=== PATIENT | male | born 1965 | race Caucasian/White ===

== ENCOUNTER → 2017-04-07 11:10 | Outpatient (CLI) | payer OTHER, SELFPAY ==
[2017-04-07 12:06] LABS: Cholesterol 180 mg/dL (200); Glucose 95 mg/dL (74-106); High Density Lipoprotein 31 mg/dL; T4 Free Direct 0.91 ng/dL (0.76-1.46); Thyroid Stim Hormone (TSH) 1.52 uIU/mL (0.358-3.74); Triglycerides 303 mg/dL; Very Low Density Lipoprotein 61 mg/dL (5-40)
== END ==
PROVIDERS: Family Provider Family Medicine; PCP Family Medicine; Visit Provider Family Medicine
DX: E78.1 Pure hyperglyceridemia (principal); R73.01 Impaired fasting glucose
CPT/HCPCS: 36415; 80061; 82947; 84439; 84443

== ENCOUNTER 2017-08-01 08:15 | Outpatient (RCR) | payer OTHER, SELFPAY | END 2017-08-05 23:59 | LOC: NS 08:15 | PROVIDERS: Family Provider Family Medicine; PCP Family Medicine; Visit Provider Family Medicine | DX: E66.9 Obesity, unspecified (principal); Z68.32 Body mass index [BMI] 32.0-32.9, adult; E78.1 Pure hyperglyceridemia; Z71.3 Dietary counseling and surveillance | CPT/HCPCS: 97802; 97803 ==

== ENCOUNTER 2017-08-29 08:00 | Outpatient (RCR) | payer OTHER, SELFPAY | END 2017-09-05 23:59 | LOC: NS 08:00 | PROVIDERS: Family Provider Family Medicine; PCP Family Medicine; Visit Provider Family Medicine | DX: E66.9 Obesity, unspecified (principal); Z68.32 Body mass index [BMI] 32.0-32.9, adult; E78.1 Pure hyperglyceridemia; Z71.3 Dietary counseling and surveillance | CPT/HCPCS: 97803 ==

== ENCOUNTER 2017-10-03 08:00 | Outpatient (RCR) | payer OTHER, SELFPAY | END 2017-10-06 23:59 | LOC: NS 08:00 | PROVIDERS: Family Provider Family Medicine; PCP Family Medicine; Visit Provider Family Medicine | DX: E66.9 Obesity, unspecified (principal); Z68.32 Body mass index [BMI] 32.0-32.9, adult; E78.1 Pure hyperglyceridemia; Z71.3 Dietary counseling and surveillance | CPT/HCPCS: 97803 ==

== ENCOUNTER 2017-10-24 08:51 | Outpatient (RCR) | payer OTHER, SELFPAY | END 2017-11-05 23:59 | LOC: NS 08:51 | PROVIDERS: Family Provider Family Medicine; PCP Family Medicine; Visit Provider Family Medicine | DX: E66.9 Obesity, unspecified (principal); Z68.32 Body mass index [BMI] 32.0-32.9, adult; E78.1 Pure hyperglyceridemia; Z71.3 Dietary counseling and surveillance | CPT/HCPCS: 97803 ==

== ENCOUNTER → 2017-10-31 06:38 | Outpatient (CLI) | payer OTHER, SELFPAY ==
--- NOTE | 2017-10-31 06:48 | MRI_ITS ---
STUDY: MRI BRAIN WITH AND WITHOUT CONTRAST (ATTENTION INTERNAL AUDITORY CANALS - I.A.C.'s) REASON FOR EXAM: Male, 52 years old. Follow-up benign neoplasm cranial nerves. TECHNIQUE: Standardized multiplanar fat and water weighted pulse sequences were obtained. 10 ml of Gadavist contrast material was administered intravenously for the contrast portion of the examination. COMPARISON: 02/21/2017. FINDINGS: There is a 1.1 x 0.8 x 0.9 cm homogeneously enhancing mass in the left internal auditory acoustic meatus and cerebellopontine angle, consistent with acoustic schwannoma. There is no change compared to the prior study. No additional enhancing lesion is noted. Normal bilateral temporal bones. Normal right internal auditory canal. Normal bilateral cochlea, vestibules and semicircular canals. Normal size of the ventricles and extra-axial spaces for the patient's age. Normal white matter tracts of the supratentorial brain. Normal flow voids within the major intracranial circulation suggesting patency by spin echo criteria. There is no extra-axial fluid accumulation. Normal sella turcica, pituitary gland, infundibular stalk, optic chiasm and hypothalamus. Normal tectal plate and pineal gland. Normal midbrain, clifford and medulla. Normal cerebellum. Normal basal cisterns. No demonstrated orbital abnormality, within the constraints of a routine brain study. Normal calvarium and skull base. Normal visualized soft tissue structures. Normal visualized upper cervical spine. There is mild mucosal thickening in the left maxillary sinus. MRI/Brain W/WO Contrast IMPRESSION: 1. A 1.1 cm left acoustic neuroma, unchanged from February 2017. 2. Trace chronic sinusitis. Electronically Signed: Frieda Boo MD at 17:32 EDT Tel , Service support ,
== END ==
PROVIDERS: Family Provider Family Medicine; PCP Family Medicine; Referring Provider Otolaryngology; Visit Provider Otolaryngology
DX: D33.3 Benign neoplasm of cranial nerves (principal)
CPT/HCPCS: 70553; A9585

== ENCOUNTER 2017-11-23 12:47 | Outpatient (RCR) | payer OTHER, SELFPAY | END 2017-12-06 23:59 | LOC: NS 12:47 | PROVIDERS: Family Provider Family Medicine; PCP Family Medicine; Visit Provider Family Medicine | DX: E66.9 Obesity, unspecified (principal); Z68.32 Body mass index [BMI] 32.0-32.9, adult; E78.1 Pure hyperglyceridemia; Z71.3 Dietary counseling and surveillance | CPT/HCPCS: 97803 ==

== ENCOUNTER 2017-12-27 08:17 | Outpatient (RCR) | payer OTHER, SELFPAY | END 2018-01-05 23:59 | LOC: NS 08:17 | PROVIDERS: Family Provider Family Medicine; PCP Family Medicine; Visit Provider Family Medicine | DX: E66.9 Obesity, unspecified (principal); Z68.32 Body mass index [BMI] 32.0-32.9, adult; E78.1 Pure hyperglyceridemia; Z71.3 Dietary counseling and surveillance | CPT/HCPCS: 97803 ==

== ENCOUNTER 2018-01-25 16:00 | Outpatient (RCR) | payer OTHER, SELFPAY ==
--- OUTSIDE RECORDS SUMMARY | 2018-03-04 02:20 | XMS RPT_ITS ---
:1965 Author Organization [place] Support Name Relationship Address Phone SRAVANTHI VOGEL Unavailable [address] + [place] [address] [facility] Unavailable [address] + [place] [address] JACKIE, SRAVANTHI Unavailable [address] + [place] [address] [facility] Unavailable [address] + [place] [address] JACKIE, SRAVANTHI Unavailable [address] + [place] [address] [facility] Unavailable [address] + [place] [address] JACKIE, SRAVANTHI Unavailable Unavailable + JACKIE, SRAVANTHI Unavailable Unavailable + JACKIE, SRAVANTHI Unavailable [address] + [place] [address] [facility] Unavailable [address] + [place] [address] JACKIE, SRAVANTHI Unavailable [address] + [place] [address] [facility] Unavailable [address] + [place] [address] JACKIE, SRAVANTHI Unavailable [address] + [place] [address] [facility] Unavailable [address] + [place] [address] JACKIE, SRAVANTHI Unavailable [address] + [place] [address] [facility] Unavailable [address] + [place] [address] JACKIE, SRAVANTHI Unavailable [address] + [place] [address] [facility] Unavailable [address] + [place] [address] JACKIE, SRAVANTHI Unavailable [address] + [place] [address] [facility] Unavailable [address] + [place] [address] JACKIE, SRAVANTHI Unavailable [address] + [place] [address] [facility] Unavailable [address] + [place] [address] JACKIE, SRAVANTHI Unavailable [address] + [place] [address] [facility] Unavailable [address] + [place] [address] Care Team Providers Name Role Phone Juan Frye Attending Unavailable Juan Frye Primary Care Unavailable Juan Frye Attending Unavailable Juan Frye Primary Care Unavailable Juan Frye Referring Unavailable Juan Frye Attending Unavailable Juan Frye Primary Care Unavailable Juan Frye Attending Unavailable Juan Frye Primary Care Unavailable Juan Frye Attending Unavailable Juan Frye Primary Care Unavailable Juan Frye Attending Unavailable Juan Frye Primary Care Unavailable ASSESSMENT, HEALTH RISK Attending Unavailable ASSESSMENT, HEALTH RISK Referring Unavailable Juan Frye Primary Care Unavailable Angel Gamez Attending Unavailable Angel Gamez Referring Unavailable Juan Frye Primary Care Unavailable Juan Frye Attending Unavailable Juan Frye Primary Care Unavailable Juan Frye Attending Unavailable Juan Frye Primary Care Unavailable Juan Frye Attending Unavailable Juan Frye Primary Care Unavailable Dr. Angel Gamez Attending Unavailable Faisal Carlisle Referring Unavailable Dr. Juan Frye Primary Care Unavailable PROBLEMS PROBLEMS DATE TYPE CONDITION / CODE ATTENDING STATUS SOURCE 02/13/2018 Unknown E66.9 - Obesity, Juan Frye Active [place] unspecified / Community E66.9(ICD-10) Hospital Repository 10/31/2017 Unknown D33.3 - Benign Megerian, Active [place] neoplasm of cranial Angel Community nerves / D33.3(ICD-10) Hospital Repository 04/07/2017 Unknown E78.1 - Pure Juan Frye Active [place] hyperglyceridemia / Community E78.1(ICD-10) Hospital Repository 04/07/2017 Unknown R73.01 - Impaired Juan Frye Active [place] fasting glucose / Community R73.01(ICD-10) Hospital Repository PROCEDURES PROCEDURES No Procedure Records FoundRESULTS RESULTS ESTABLISHED VISIT Observed: 12/19/2017 Status: UNK Source: [place] (OTOLARYNGOLOGY) 4:30 PM HOSPITALS REPOSITORY Chief Complaint MRI FOLLOW UP Patient last seen 6 months ago with a small acoustic tumor approximately 9-10 mm. He said no interval change or problems. Physical exam unchanged except for the left ear wax that was removed. MRI shows tumor stable no growth. Impression doing well plan follow-up in one year with MRI. Active Problems Acoustic neuroma (225.1) (D33.3) Blood tests prior to treatment or procedure (V72.63) (Z01.812) Past Medical History History of asthma (V12.69) (Z87.09) History of high cholesterol (V12.29) (Z86.39) History of sleep apnea (V13.89) (Z86.69) Surgical History History of Knee Surgery Family History Family history of Parkinson disease, symptomatic Social History Currently working Lives with family Never a smoker Occasional alcohol use Allergies Penicillins Recorded By: Rowena Mendez; 04/04/2017 1:55:21 PM Animal dander - Cats Recorded By: Rowena Mendez; 04/04/2017 1:55:21 PM Dust Recorded By: Rowena Mendez; 04/04/2017 1:55:21 PM Pollen Recorded By: Rowena Mendez; 04/04/2017 1:55:21 PM Diagnoses/Problems Acoustic neuroma (225.1) (D33.3) Blood tests prior to treatment or procedure (V72.63) (Z01.812) Orders MRI IAC w/wo Contrast; Status:Hold For - Scheduling,Retrospective By Protocol Authorization; Requested for:06Nov2018; Perform:[facility]; Due:[id number]; Last Updated By:Kayli Petersen; 12/19/2017 3:41:06 PM;Ordered; For:Acoustic neuroma; Ordered By:Angel Gamez; Radiologist to Determine Optimal Study : Y What are the patient's signs and symptoms? : known IAC lesion Renal Function Panel; Specimen Source:Blood (BLD); Status:Active - Retrospective By Protocol Authorization; Requested for:06Nov2018; Perform:Lab Services - Lab To Draw (Blood Test); Due:[id number]; Last Updated By:Kayli Petersen; 12/19/2017 3:41:06 PM;Ordered; For:Blood tests prior to treatment or procedure; Ordered By:Angel Gamez; Signatures Electronically signed by : Angel Gamez MD; Dec 19 2017 4:30PM EST (Author) BRAIN W/WO CONTRAST Observed: 10/31/2017 Status: F Source: [place] 6:48 AM [facility] REPOSITORY [facility] Imaging Services [address] [place] [address] [place] [address] Brain W/WO Contrast MR#: [id number] Acct: [id number] Name: GORGE VOGEL Luis Rep #: [id number] : 1965 M 52 From: Frieda Boo MD PCP: Juan Frye DO Status: REG CLI Study: Brain W/WO Contrast Date of Exam: 10/31/17 Exam# [id number] Ordering Dr: Angel Gamez STUDY: MRI BRAIN WITH AND WITHOUT CONTRAST (ATTENTION INTERNAL AUDITORY CANALS - I.A.C.'s) REASON FOR EXAM: Male, 52 years old. Follow-up benign neoplasm cranial nerves. TECHNIQUE: Standardized multiplanar fat and water weighted pulse sequences were obtained. 10 ml of Gadavist contrast material was administered intravenously for the contrast portion of the examination. COMPARISON: 02/21/2017. FINDINGS: There is a 1.1 x 0.8 x 0.9 cm homogeneously enhancing mass in the left internal auditory acoustic meatus and cerebellopontine angle, consistent with acoustic schwannoma. There is no change compared to the prior study. No additional enhancing lesion is noted. Normal bilateral temporal bones. Normal right internal auditory canal. Normal bilateral cochlea, vestibules and semicircular canals. Normal size of the ventricles and extra-axial spaces for the patient's age. Normal white matter tracts of the supratentorial brain. Normal flow voids within the major intracranial circulation suggesting patency by spin echo criteria. There is no extra-axial fluid accumulation. Normal sella turcica, pituitary gland, infundibular stalk, optic chiasm and hypothalamus. Normal tectal plate and pineal gland. Normal midbrain, clifford and medulla. Normal cerebellum. Normal basal cisterns. No demonstrated orbital abnormality, within the constraints of a routine brain study. Normal calvarium and skull base. Normal visualized soft tissue structures. Normal visualized upper cervical spine. There is mild mucosal thickening in the left maxillary sinus. MRI/Brain W/WO Contrast IMPRESSION: 1. A 1.1 cm left acoustic neuroma, unchanged from February 2017. 2. Trace chronic sinusitis. 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 Collected: 10/18/2017 Status: F Source: [place] 10:08 AM [facility] REPOSITORY TYPE CODE TESTS RESULT OUT OF RANGE REFERENCE UNITS LAB L100.1000 4.4-11.0 K/mm3 Normal WBC 4.8 LAB L100.1200 4.6-6.2 M/mm3 Normal RBC 4.77 LAB L100.1300 13.0-16.5 g/dl Normal HGB 14.7 LAB L100.1400 40-54 % Normal HCT 44.8 LAB L100.1500 80-94 fL Normal MCV 93.9 LAB L100.1600 27.0-32.0 pg Normal MCH 30.8 LAB L100.1700 32-36 g/gl Normal MCHC 32.8 LAB L100.1810 11.6-14.6 % Normal RDW CV 13.0 LAB L100.1820 35.1-43.9 fl High RDW SD 44.5 LAB L100.1900 150-450 K/mm3 Normal PLT 210 LAB L100.2000 6.2-12.0 fl Normal MPV 10.3 LAB L100.2110 47-70 % High NEUT% 71.6 LAB L100.2210 19-41 % Normal LY% 20.9 LAB L100.2310 0-10 % Normal MONO% 5.4 LAB L100.2410 0-5 % Normal EO% 1.7 LAB L100.2510 0-1 % Normal BASO% 0.4 LAB L100.2620 2.0-7.7 X10 3/uL Normal Absolute Neut 3.4 LAB L100.2720 0.83-4.51 X10 3/ul Normal Absolute Lymph 1.00 Performed By: #### L100.0200 #### [facility] [address] [place], [address] EMPLOYEE PROFILE Collected: 10/18/2017 Status: F Source: [place] 10:08 AM [facility] REPOSITORY TYPE CODE TESTS RESULT OUT OF RANGE REFERENCE UNITS LAB L501.0100 74-106 mg/dL Normal GLU 93 Result Comment: Please note revised GLUCOSE reference range effective 2017. LAB L501.1000 7-18 mg/dL High BUN 23 LAB L501.1100 0.70-1.30 mg/dL Normal CREAT,SERUM 1.08 Result Comment: The validity of the calculated GFR AND GFRAA in patients over 70 years has not been determined. Clinical correlation is essential. LAB L501.1110 >60 mL/min Normal EST GFR 77 Result Comment: Non- GFR Calc LAB L501.1115 >60 mL/min Normal EST GFR - AA 93 Result Comment: GFR Calc LAB L501.1300 10-20 RATIO High BUN/CRE 21.3 LAB L501.1400 3.5-7.2 mg/dL Normal URIC 6.1 Result Comment: The drugs N-Acetylcysteine and Metamizole may falsely depress this assay. LAB L501.1500 6.4-8.2 g/dL Normal T PROT 7.9 LAB L501.1800 3.2-5.0 g/dL Normal ALB 3.9 LAB L501.1950 2.2-4.2 g/dL Normal GLOB 4.0 LAB L501.2000 0.9-2.4 RATIO Normal A/G 1.0 LAB L501.2200 8.5-10.1 mg/dL Normal CA 9.1 LAB L501.2300 2.5-4.9 mg/dL Normal PHOS 2.7 LAB L501.4100 15-37 U/L Normal AST 19 LAB L501.4305 45-117 U/L Normal ALK P 74 LAB L501.4405 16-61 U/L Normal ALT 29 LAB L501.4600 0.20-1.00 mg/dL Normal T BILI 0.70 LAB L501.4700 0.00-0.30 mg/dL Normal D BILI 0.11 LAB L501.4900 200 mg/dL Normal CHOL 196 Result Comment: <200 mg/dL Desirable 200-240 mg/dL Borderline >240 mg/dL High Risk LAB L501.5000 mg/dL High TRIG 298 Result Comment: The drugs N-Acetylcysteine and Metamizole may falsely depress this assay. Serum Triglycerides Reference Interval Normal <150 mg/dL Borderline high 150 - 199 mg/dL High 200 - 499 mg/dL Very High > or = 500 mg/dL LAB L501.5300 136-145 mmol/L Normal NA 140 LAB L501.5600 3.5-5.1 mmol/L Normal K 4.6 LAB L501.5900 98-107 mmol/L Normal CL 106 LAB L501.6100 21.0-32.0 mmol/L Normal CO2 26.0 LAB L501.6200 5-15 Normal 8 GAP LAB L501.6400 mg/dL Low HDL 32 Result Comment: The drugs N-Acetylcysteine and Metamizole may falsely depress this assay. Reference Range HDL <40 mg/dL Low HDL Cholesterol HDL >or= 60 mg/dL High HDL Cholesterol LAB L501.6475 Normal CHOL:HDL 6.10 LAB L501.6500 0-130 mg/dL Normal LDL 104 LAB L501.6600 5-40 mg/dL High VLDL 60 LAB L504.2610 87-241 U/L Normal LDH 181 Performed By: #### L500.2900 #### [facility] [address] [place], [place], [id number] [employer]INAL[employer], EMPLOYEE Collected: 10/18/2017 Status: F Source: [place] 10:08 AM [facility] REPOSITORY TYPE CODE TESTS RESULT OUT OF RANGE REFERENCE UNITS LAB L400.3000 Yellow COLOR Normal Yellow LAB L400.3050 Clear Normal CLARITY Clear LAB L400.3200 Normal mg/dl Normal GLUCOSE, UR Normal LAB L400.3300 Negative mg/dL Normal BILIRUBIN URINE Negative LAB L400.3400 Negative mg/dl Normal KETONE UR Negative LAB L400.3465 1.002-1.030 Normal SP.GR. DIPSTX 1.025 LAB L400.3550 5.0 - 8.0 pH UR Normal 5.0 LAB L400.3600 Negative mg/dl High PROT 15 DIPSTX LAB L400.3700 Normal mg/dl Normal UROBILI Normal LAB L400.3750 Negative Normal NITRITE UR Negative LAB L400.3780 Negative /ul High 10 OCCULT BLOOD-UR LAB L400.3800 Negative /ul LEUK Normal ESTERASE Negative Performed By: #### L400.0100 #### [facility] [address] [place], [place], [address] NICOTINE URINE DRUG Collected: 10/18/2017 Status: F Source: [place] SCREEN 10:08 AM [facility] REPOSITORY TYPE CODE TESTS RESULT OUT OF RANGE REFERENCE UNITS LAB L505.6250 TO BE Normal CONFIRMED Result Comment: CONFIRMATORY TESTING FOR ALL POSITIVE URINE DRUG SCREEN RESULTS WILL ONLY BE SENT OUT UPON PHYSICIAN ORDER. The results of Urine Drug Screen methods provide only preliminary analytical test results. A more specific alternate chemical method must be used in order to obtain a confirmed analytical result. Gas chromatography/mass spectrometery (GC/MS) is the preferred confirmatory method. Clinical consideration and professional judgement should be applied to any drug of abuse test result, particularly when preliminary positive results are used. LAB L505.6270 <200 ng/mL Normal COT DRG Negative SCREEN Result Comment: Cotinine is the first-stage metabolite of Nicotine. Performed By: #### L505.6240 #### [facility] [address] [place], [place], [address] LIPID PROFILE Collected: 04/07/2017 Status: F Source: [place] 11:15 AM [facility] REPOSITORY TYPE CODE TESTS RESULT OUT OF RANGE REFERENCE UNITS LAB L501.4900 200 mg/dL Normal CHOL 180 Result Comment: <200 mg/dL Desirable 200-240 mg/dL Borderline >240 mg/dL High Risk LAB L501.5000 mg/dL High TRIG 303 Result Comment: The drugs N-Acetylcysteine and Metamizole may falsely depress this assay. Serum Triglycerides Reference Interval Normal <150 mg/dL Borderline high 150 - 199 mg/dL High 200 - 499 mg/dL Very High > or = 500 mg/dL LAB L501.6400 mg/dL Low HDL 31 Result Comment: The drugs N-Acetylcysteine and Metamizole may falsely depress this assay. Reference Range HDL <40 mg/dL Low HDL Cholesterol HDL >or= 60 mg/dL High HDL Cholesterol LAB L501.6500 0-130 mg/dL Normal LDL 88 LAB L501.6600 5-40 mg/dL High VLDL 61 Performed By: #### L500.4100, L501.0100, L501.9520, L506.0400 #### [facility] [address] [place], [place], [address] GLUCOSE Collected: 04/07/2017 Status: F Source: [place] 11:15 AM [facility] REPOSITORY TYPE CODE TESTS RESULT OUT OF RANGE REFERENCE UNITS LAB L501.0100 74-106 mg/dL Normal GLU 95 Result Comment: Please note revised GLUCOSE reference range effective 2017. Performed By: #### L500.4100, L501.0100, L501.9520, L506.0400 #### [facility] [address] [place], [place], [address] THYROID STIM HORMONE Collected: 04/07/2017 Status: F Source: [place] (TSH) 11:15 AM [facility] REPOSITORY TYPE CODE TESTS RESULT OUT OF RANGE REFERENCE UNITS LAB L501.9520 0.358-3.74 uIU/mL Normal TSH 1.52 Performed By: #### L500.4100, L501.0100, L501.9520, L506.0400 #### [facility] [address] [place], [address] T4 FREE DIRECT Collected: 04/07/2017 Status: F Source: [place] 11:15 AM [facility] REPOSITORY TYPE CODE TESTS RESULT OUT OF RANGE REFERENCE UNITS LAB L506.0400 0.76-1.46 ng/dL Normal T4 FREE 0.91 DIRECT Performed By: #### L500.4100, L501.0100, L501.9520, L506.0400 #### [facility] [address] [place], [address] ALLERGIES ALLERGIES No Allergies Records FoundENCOUNTERS ENCOUNTERS ADMIT/DISCHARGE ACCOUNT ADMITTING ENCOUNTER LOCATION SOURCE NUMBER CLASS 02/12/2018/02/12/19 [id number] Ambulatory [address] ing:NS Repository 01/25/2018/02/06/20 [id number] Ambulatory [address] Hospital ing:NS Repository 12/27/2017/01/06/20 [id number] Ambulatory [address] Hospital ing:NS Repository 12/19/[id number] Repository 11/23/2017/12/07/19 [id number] Ambulatory [address] Hospital ing:NS Repository 10/31/2017 [id number] Ambulatory [facility] Hospital ing:MRI Repository 10/24/2017/11/06/19 [id number] Ambulatory [address] Hospital ing:NS Repository 10/18/2017 [id number] Ambulatory [facility] Hospital ing:EMPH Repository 10/03/2017/10/07/19 [id number] Ambulatory [address] Hospital ing:NS Repository 08/29/2017/09/06/19 [id number] [facility] [address] [facility]NS Repository 08/01/2017/08/06/19 [id number] Ambulatory [address] Hospital ing:NS Repository 04/07/2017 [id number] Ambulatory [facility] Hospital ing:LAB.FUTNIA Repository E PAYERS PAYERS ENCOUNTER GUARANTOR PAYER SUBSCRIBER SOURCE 02/12/2018 GORGE Smith Primary Insurance:[facility] GORGE VOGEL[address] [place], [place] [address]ERDOB: [facility] [id number], [place] Number: Repository [id number]: 330 [id number] [phone] (HP) Date:7681-70-24[address] [address], [place] [address]JU: CHECK WEBSITE 02/12/2018 Secondary NOT GIVENUNK [place] Insurance:SELF PAY [facility] Number: Effective Repository Date:2018-02-06 01/25/2018 GORGE E Primary Insurance:[facility] GORGE E [place] [id number] [place] [address] RABERDOB: [facility] [id number], [place] Number: Repository [id number]: 330 [id number] [phone] (HP) Date:6024-73-36NH [address] [address]FK[place]FAUEK, [place] [address]ZT: CHECK WEBSITE 01/25/2018 Secondary NOT GIVENUNK [place] Insurance:SELF PAY [facility] Number: Effective Repository Date:2018-01-06 12/27/2017 GORGE E [facility] [place], [place] [address]ERDOB: [facility] [id number], [place] Number: Repository [id number]: 330 [id number] [phone] () Date:1335-72-83ZX [address] [address], [place] [address]KY: CHECK WEBSITE 12/27/2017 Secondary NOT GIVENUNK [place] Insurance:SELF PAY [facility] Number: Effective Repository Date:2017-12-07 12/19/[address] [facility] [facility]: [facility] [place] Insurance:Medical [id number] [place] [address], Number: [place], [place] [address]Xyn: [id number] [place] [address]Lsi: Date:Plan Name:[facility] () (HP) 11/23/2017 GORGE E Primary Insurance:[facility] GORGE DAVISONER251 [facility]: [facility] [id number], [place] Number: Repository [id number]: 330 [id number] [phone] () Date:2927-81-56QD [address] [address]WZAXN[place], [place] [address]RG: CHECK WEBSITE 11/23/2017 Secondary NOT GIVENUNK [place] Insurance:SELF PAY [facility] Number: Effective Repository Date:2017-11-06 10/31/2017 GORGE E Primary Insurance:[facility] GORGE Branhamoster [id number] [facility]USDOB: [facility] [id number], [place] Number: Repository [address]Ndv: 330 [id number] [phone] () Date:1302-70-22HH [address] [address]WTSK, [place] [address]HV: CHECK WEBSITE 10/31/2017 Secondary NOT GIVENUNK [place] Insurance:SELF PAY [facility] Number: Effective Repository Date:2017-10-25 10/24/2017 Gorge [id number] Primary Insurance:[facility] Gorge DavisonearleneB: [facility] [id number].[facility] [address]Uro: (330) Number: Repository [phone] () [id number] Date:9848-72-56FX [address] [address], [place] [address]SA: CHECK WEBSITE 10/24/2017 Secondary NOT GIVENUNK [place] Insurance:SELF PAY [facility] Number: Effective Repository Date:2017-10-07 10/18/2017 Gorge [id number] Primary NOT GIVENUNK [place] [employer] Insurance:SELF PAY [facility] [address]Cqj: (330) Number: Effective Repository [phone] () Date:2017-10-18 10/03/2017 Gorge [id number] Primary Insurance:[facility] Gorge BraunB: [facility] [id number].W. [facility] [address]Sar: (330) Number: Repository [phone] () [id number] Date:2750-22-45QR [address] [address]KTYYQOSDS, [place] [address]YD: CHECK WEBSITE 10/03/2017 Secondary NOT GIVENUNK [place] Insurance:SELF PAY [facility] Number: Effective Repository Date:2017-09-06 08/29/2017 Gorge [id number] Primary Insurance:[facility] Gorge DavisonerDOB: [place] [facility] [id number].W. [facility] [address]Vzb: (330) Number: Repository [phone] () [id number] Date:3647-26-53DM [address] [address]ZWUFUH, [place] [address]NY: CHECK WEBSITE 08/29/2017 Secondary NOT GIVENUNK [place] Insurance:SELF PAY [facility] Number: Effective Repository Date:2017-08-06 08/01/2017 Gorge Davisoner251 Primary Insurance:[facility] Gorge VogelDOB: [place] [facility] [id number].W. [facility] [address]Dsj: (330) Number: Repository [phone] () [id number] Date:6128-19-18PK [address] [address]YVCGA, [place] [address]PQ: CHECK WEBSITE 08/01/2017 Secondary NOT GIVENUNK [place] Insurance:SELF PAY [facility] Number: Effective Repository Date:2017-06-22 04/07/2017 Gorge [id number] Primary Insurance:[facility] Gorge VogelDOB: [place] [facility] [id number].[facility] [address]Qef: (330) Number: Repository [phone] () [id number] Date:9780-79-67GA [address] [address]DYSCVCOSQ, [place] [address]SC: CHECK WEBSITE 04/07/2017 Secondary NOT GIVENUNK [place] Insurance:SELF PAY [facility] Number: Effective Repository Date:2016-10-31
== END 2018-02-05 23:59 ==
LOC: NS 16:00
PROVIDERS: Family Provider Family Medicine; PCP Family Medicine; Visit Provider Family Medicine
DX: E66.9 Obesity, unspecified (principal); Z68.32 Body mass index [BMI] 32.0-32.9, adult; E78.1 Pure hyperglyceridemia; Z71.3 Dietary counseling and surveillance
CPT/HCPCS: 97803

== ENCOUNTER 2018-02-12 16:37 | Outpatient (RCR) | payer OTHER, SELFPAY | END 2018-02-12 23:59 | disposition home or self-care (01) | LOC: NS 16:37 | PROVIDERS: Family Provider Family Medicine; PCP Family Medicine; Visit Provider Family Medicine | DX: E66.9 Obesity, unspecified (principal); Z68.32 Body mass index [BMI] 32.0-32.9, adult; E78.1 Pure hyperglyceridemia; Z71.3 Dietary counseling and surveillance | CPT/HCPCS: 97803 ==

== ENCOUNTER 2018-11-05 06:44 | Day surgery (SDC) | payer OTHER, SELFPAY ==
[2018-11-05 07:09] VITALS: BP 138/84; PULSE 701; RESP 14; TEMP 36.3; O2SAT 97; BMI 33.7
[2018-11-05] MEDS: Lactated Ringers 1,000 ML 100 ML IV (07:22)
--- NOTE | 2018-11-05 07:45 | H&P.OPEN ---
History of Present Illness Date of Admission: 11/05/18 The patient is a 53 year old M who presents for screening colonoscopy. His last colonoscopy was greater than 10 years ago. Past Medical/Surgical History - Planned Operation Planned Operative Procedure/s: cscope Date of Operative Procedure: 11/05/18 Permit Signed: No S.O.S: No Is This Patient Having a Total Joint: No - Previous Hospitalizations/Surgeries HX Hospitalizations: No HX of Surgeries: left knee scope x2 Any Problems With Anesthesia: No You/Your Family Experience Fever (Hyperthermia) With Anes: No Cholinesterase deficiency: No - Cardiovascular Hx Chest Pain within Last 2 months: No Hx of Irregular Heartbeat and/or Afib: No Hx Heart Attack: No Hx Congestive Heart Failure: No Hx Rheumatic Fever: No Hx Hypertension: No Hx Internal Defibrillator: No Hx Pacemaker: No Hx Cardiac Catheterization: No Hx Cardiac Surgery/Stents/Etc.: No Hx Stress Test: No HX Edema: Yes - ankles prn Hx Pain in Legs when Walking/Leg Cramps: No - Respiratory Chronic Cough: No HX of Shortness of Breath: No Hoarseness: No Hx Chronic Obstructive Pulmonary Disease (COPD): No Hx Asthma: Yes - inhaler prn/used very infreq. Hx Emphysema: No Hx Sleep Apnea: Yes CPAP: Yes BIPAP: No Hx Oxygen Use at Home: No Hx Respiratory Tract Infection/Cold (presently): No Result (for STOP score): Positive Hx Smoking: No Smoking Status: Never smoker - Gastrointestinal Hx Gastroesophageal Reflux: No - occ heartburn Hx Gastrointestinal Disorders: Yes - ibs Hx Gastrointestinal Bleed: No Hx Ulcer: No Hx Hiatal Hernia: No Difficulty Chewing/Swallowing: No Recent Onset of Swallowing Problems: No Special diet followed at home: No Hx Unplanned Weight Loss of 20#: No HX Unplanned Weight Gain of 20#: No - Neurological Hx Seizures: No HX Syncope/Blackout Spells/Unconsciousness: No - acoustic neuroma/gait unsteady at times Hx CVA/Stroke: No Hx Transient Ischemic Attacks (TIA): No Hx Multiple Sclerosis: No Hx Parkinson's Disease: No Hx Head/Neck Injury: No Hx Headaches: Yes Hx Back Injury/Pain: No Recent Onset of Speech Difficulty: No Restless Legs: No Does patient have nerve stimulator: No Patient instructed to have device shut off: No Rep notified?: No - Blood Disorder Hx Leukemia: No Bleeding Tendencies: No Hx Deep Vein Thrombosis: No Hx High Cholesterol: No Blood Transmitted Disease: No Hx Hepatitis: No Hx Cirrhosis: No Hx Anemia: No Hx Blood Disorders: No - Genitourinary Hx Renal Disease: No - Musculoskeletal Hx Arthritis: No Hx Rheumatoid Arthritis: No Hx Gout: No Recent Onset of an Orthopedic Problem: No - Endocrine Hx Diabetes: No Thyroid Disease: No Hx Steroid Therapy: No - Psycho/Social Hx Substance Use: No Hx Alcohol Use: Yes - social Hx Anxiety: No Hx Depression: No Mental Illness: No Hx Dementia: No - Miscellaneous Hx Cancer: No Recent Exposure to Contagious Disease: No Active MRSA: No Hx of C-Diff: No Any Loose Teeth: No Allergies Penicillins Allergy (Verified 11/02/18 13:57) Unknown - Discharge Is Pt Admitted From a Senior Living, or a [facility]: No Who Could Help: family After D/C, Where Do you Plan to Go: Return Home - Physical Exam General: Alert, Oriented x3 Lungs: Clear to auscultation Cardiovascular: Regular rate, Regular Rhythm, No murmurs Abdomen: Bowel Sounds Present, Soft, Non Tender, Non-Distended Vital Signs Temp Pulse Resp BP Pulse Ox 97.3 F L 701 H 14 138/84 H 97 11/05/18 07:09 11/05/18 07:09 11/05/18 07:09 11/05/18 07:09 11/05/18 07:09 Oxygen Delivery Method Room Air Weight: 276 lb 10.882 oz Body Mass Index (BMI) 33.7 Assessment/Plan Assessment screening colonoscopy Plan: We will be to perform a colonoscopy. Surgery Risks - Colonoscopy Risks Include but are not Limited To: Risks include but are not limited to: Bleeding, perforation requiring further surgery, inability to complete colonoscopy requiring barium enema.
--- NOTE | 2018-11-05 08:09 | OP.ENDO_ITS ---
11/05/2018 Juan Frye [address] [place] [address] Re : Colonoscopy procedure for Gorge Jaspreet Dear Dr. Frye This procedure was performed on Monday, November 05, 2018. My impressions and recommendations are as follows: Impressions : - Diverticulosis in the sigmoid colon and in the descending colon. No specimens collected. - Non-bleeding internal hemorrhoids. - The examination was otherwise normal. Recommendations : - Discharge patient to home. - Resume previous diet. - Continue present medications. - Repeat colonoscopy in 10 years for screening purposes. - Return to primary care physician PRN. My findings are described in the full procedure note, which is enclosed. If I can be of further assistance, please feel free to contact me at Doctor phone number(s): , Fax: [phone], Work: . Sincerely, MD Rhys Zavala MD 11/05/2018 8:08:52 AM This report has been signed electronically.
[2018-11-05 08:10] VITALS: BP 136/88; BP 138/84; PULSE 69; RESP 16; TEMP 36.6; O2SAT 97
[2018-11-05 08:15] VITALS: BP 135/89; BP 138/84; PULSE 66; RESP 16; O2SAT 97
[2018-11-05 08:20] VITALS: BP 135/90; BP 138/84; PULSE 64; RESP 16; O2SAT 96
[2018-11-05 08:25] VITALS: BP 135/86; BP 138/84; PULSE 70; RESP 16; TEMP 36.6; O2SAT 97
[2018-11-05 08:45] VITALS: BP 138/84
== END 2018-11-05 08:53 | disposition home or self-care (01) ==
LOC: EN 06:44 → AC 06:46
PROVIDERS: Family Provider Family Medicine; PCP Family Medicine; Referring Provider Family Medicine; Visit Provider Surgery
PROC: 0DJD8ZZ Inspection of Lower Intestinal Tract, Via Natural or Artificial Opening Endoscopic (ICD-10-PCS; CPT 45378; principal; 2018-11-05 07:40)
DX: Z12.11 Encounter for screening for malignant neoplasm of colon (principal); K57.30 Diverticulosis of large intestine without perforation or abscess without bleeding; K64.8 Other hemorrhoids; J45.909 Unspecified asthma, uncomplicated; G47.30 Sleep apnea, unspecified
CPT/HCPCS: 45378; J7120

== ENCOUNTER 2018-11-14 18:00 | Outpatient (RCR) | payer OTHER, SELFPAY ==
--- NOTE | 2018-09-12 19:19 | HP.PTEVAL_ITS ---
Patient's Visit Information KRYSTA MEJIA is a 53 year old M referred to Physical Therapy by Juan Frye DO with a diagnosis of dizziness and giddiness. 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 It is not big enough yet to have surgery. He was diagnosed about a year and 1/2 ago. His L ear always feel full and he has a hearing aid in it which has helped. He fell here at [employer] on the [employer] ball and he was feeling good and turned it over and fell on it. Walking the dog, he turned to L side to see who was coming and fell. He compenstes by grabbing onto things. He has to hold onto the TM. He gets spells of vertigo ( everything spins slow)... the spins last about 20-25 min. He has a split level home.... He is scheduled for another MRI in Dec.... every year. He gets ANDRADE but contributes that to some posture..... He holds onto the hand rails on stairs. The worst is when he stand up after sitting for awhile and usually has to take a step bw a step or 2. Looking up causes him some stepping bw. - Objective Gait: walks with some veering at times otherwise a normal gait. LE MMT: B hip flex, knee ext, knee flex hip abd, hip ext 5/5. CATSIB: 98. FGA: 15. Smooth pursuit: some catching up nystagmus both directions with horizontal and does make pt feel dizzy. VOR X 1... pt slows down and decreases ROM about 30 seconds into the exercise and he had a hard time keeping up at approx 30 seoncds... with some dizziness - Balance Scores Functional Gait Assessment Score: 15 % Disability: 50.0000 CATSIB Score (Max score 120 seconds): 98 - Goals Goal 1:: I HEP Goal Time Frame: 6-8 Weeks Goal 2:: Be able to complete VOR X1 walking for 60 seconds without dizziness and LOB Goal Time Frame: 6-8 Weeks Goal 3:: Be able to walk with head turns without LOB and dizziness 60 feet Goal Time Frame: 6-8 Weeks Goal 4:: Increase CAtsib SCORE TO 120/120 Goal Time Frame: 6-8 Weeks - Rehabilitation Potential Rehabilitation Potential: Good - Anticipated Interventions Therapeutic Exercise to Include: Strength training, Balance training, Coordination, Gait and locomotor training For the Purpose of:: To improve muscle performance and motor function, To improve ability to perform ADL's, To increase tolerance to activity/condition/position, To improve performance and independence with ADL's, To improve ability of physical actions for home/community/work/leisure, To improve gait and locomotor functions, To improve balance, To improve safety with gait Functional Training to Include: Gait training For the Purpose of:: To improve gait and locomotor functions Thank you for the opportunity to evaluate your patient. For Medicare and Medicare HMO plans, please review the plan of care and approve it. It will need to be FAXED BACK to us at [phone] for Medicare purposes. For Medicare only, by signing this I certify the plan of care. Please let me know if there are questions or concerns regarding this plan of care. Physician S ignature: Date:
--- NOTE | 2018-10-24 19:22 | HP.PTREVAL ---
Juan Frye, DO, It has been my pleasure to treat KRYSTA MEJIA over the last 9 visits for dizziness and giddiness. Please see the progress note below for an update on the physical therapy plan of care! Subjective: Pt feels that some of the things we have worked... he is walking straighter (tested along a line today and got about 10 feet and then had to correct ( minor correction). He has noticed that he is able to look up more instead of at his feet. Objective/Function: FGA 17. CATSIB 98. Pt is able to maintain his balance better when walking with VOR X1 with his head movement in a smaller range with vertical being worse than horizontal movment,. Overall improvement made and pt feels comfortable comtinuing his exercises. Baseline NeuroCOM recomm Plan Plan: Balance Assessment on NeuroCOm Goals Goal 1:: I HEP Goal Time Frame: 6-8 Weeks Goal Progress: Goal Met Goal 2:: Be able to complete VOR X1 walking for 60 seconds without dizziness and LOB Goal Time Frame: 6-8 Weeks Goal Progress: Progressing Goal 3:: Be able to walk with head turns without LOB and dizziness 60 feet Goal Time Frame: 6-8 Weeks Goal Progress: Progressing Goal 4:: Increase CAtsib SCORE TO 120/120 Goal Time Frame: 6-8 Weeks Anticipated Interventions Therapeutic Exercise to Include: Strength training, Balance training, Coordination, Gait and locomotor training For the Purpose of:: To improve muscle performance and motor function, To improve ability to perform ADL's, To increase tolerance to activity/condition/position, To improve performance and independence with ADL's, To improve ability of physical actions for home/community/work/leisure, To improve gait and locomotor functions, To improve balance, To improve safety with gait Functional Training to Include: Gait training For the Purpose of:: To improve gait and locomotor functions Please do not hesitate to contact me at [phone] by phone or if you have questions or concerns regarding this new plan of care! Sincerely, Veronica Staton, MPT
--- NOTE | 2018-11-14 18:47 | HP.PTDCSUM ---
HP - PT D/C Summary It has been my pleasure to treat KRYSTA MEJIA under orders from Juan Frye DO, for the diagnosis of dizziness and giddiness for a total of 10 visit(s). Discharge Date: 11/14/18 Please see the following information for a summary of their discharge status. - Subjective Subjective: Pt reports that he thinks PT has helped. He has a MRI in December to see if his acustic neuroma has gotten any bigger. - Overall Improvement % Improvement: 50 - Objective Objective/Function: SOT: Overall score is below age related norms. Pt has some trouble with the use of his visual and vestibular systems to help him maintain his balance. His strategy analysis is more ankle dominant which is higher level and his COG alignment is normal. MCT: OVerall reaction time is below age related norms. PT has trouble with weight shifting in all direction except backwards. - Goals Goal 1:: I HEP Goal Progress: Goal Met Goal 2:: Be able to complete VOR X1 walking for 60 seconds without dizziness and LOB Goal Progress: Progressing Goal 3:: Be able to walk with head turns without LOB and dizziness 60 feet Goal Progress: Progressing Goal 4:: Increase CAtsib SCORE TO 120/120 Goal Progress: Not Progressing - Plan Plan: DC PT to HEP - D/C Information Discharge Comments: DC PT to [facility] If there are questions or concerns regarding this patient's physical therapy, please feel free to call me at [phone]. Thank you for the referral of this patient. Sincerely, Veronica Staton, MPT
--- NOTE | 2018-11-14 18:47 | HP.PTCOM ---
PT Communication Note 11/14/[address] Juan Frye, DO , Thank you for the referral of Gorge Vogel to our clinic. He was tested on our [employer]it[employer] System today and enclosed are the patients test results. On the Sensory Organization Test (SOT) the patient's overall score was below age related norms. He had some trouble with the use of his visual and vestibular systems to help him maintain his balance. His strategy analysis is more ankle dominant which is higher level and his center of gravity alignment is within normal limits. On the Motor Control Test his overall reaction time was below age related norms. On the Limits of Stability Test the pt had a hard time weight shifting backwards. He will continue to work on his HEP at home which includes vestibular inputs. Sincerely, OSCAR Hairston Contact Information
== END 2018-11-14 19:00 | disposition home or self-care (01) ==
LOC: PT 18:00
PROVIDERS: Family Provider Family Medicine; PCP Family Medicine; Referring Provider Family Medicine; Visit Provider Family Medicine
DX: R42 Dizziness and giddiness (principal)
CPT/HCPCS: 97110; 97162; 97530; 97750

== ENCOUNTER → 2019-01-01 06:50 | Outpatient (CLI) | payer OTHER, SELFPAY ==
[2018-12-25 17:58] VITALS: BMI 33.7
[2018-12-31 09:29] LABS: BUN 22 mg/dL (7-18); Chloride 103 mmol/L (98-107); Creatinine, Serum 1.16 mg/dL (0.70-1.30); EST Glomerular Filtration Rate 70 mL/min (>60); Est Glom Filt Rate - Afr Amer 85 mL/min (>60); Glucose 92 mg/dL (74-106); Phosphorus 3.9 mg/dL (2.5-4.9); Sodium Level 140 mmol/L (136-145)
--- NOTE | 2019-01-01 06:55 | MRI_ITS ---
STUDY: MRI BRAIN WITH AND WITHOUT CONTRAST REASON FOR EXAM: Male, 53 years old. Reevaluate acoustic neuroma TECHNIQUE: Standardized multiplanar fat and water weighted pulse sequences were obtained. IV Dotarem 25 was administered for the contrast portion of the examination. COMPARISON: Brain MRI 10/31/2017. FINDINGS: Again seen is a 1.1 x 1 x 1.1 cm (previously 1.1 x 1 x 0.9 when measured in a similar manner) homogeneously enhancing mass in the left internal auditory acoustic meatus and cerebellopontine angle consistent with known acoustic neuroma. The right internal auditory canal and cerebellopontine angle are unremarkable. There is no other enhancing lesion. Normal size of the ventricles and extra-axial spaces for the patient's age. Normal white matter tracts of the supratentorial brain. Normal bilateral basal ganglia. Normal thalami. There is no extra-axial fluid accumulation. Normal flow voids within the major intracranial circulation suggesting patency by spin echo criteria. Normal venous enhancement. There is no enhancing intra-axial or extra-axial abnormality. Normal sella turcica, pituitary gland, infundibular stalk, optic chiasm and hypothalamus. Normal tectal plate and pineal gland. Normal midbrain, clifford and medulla. Normal cerebellum. Normal basal cisterns. Normal bilateral temporal bones. No demonstrated orbital abnormality, within the constraints of a routine brain study. There is mild bilateral maxillary sinus chronic mucosal thickening. Normal calvarium and skull base. Normal visualized soft tissue structures. Normal visualized upper cervical spine. MRI/Brain W/WO Contrast IMPRESSION: Left acoustic neuroma minimally increased when compared to most recent exam, as described above. Electronically Signed: Kalpana Storey, at 10:10 EST Tel , Service support ,
== END ==
PROVIDERS: Family Provider Family Medicine; PCP Family Medicine; Referring Provider Otolaryngology; Visit Provider Otolaryngology
DX: Z01.812 Encounter for preprocedural laboratory examination (principal); D33.3 Benign neoplasm of cranial nerves
CPT/HCPCS: 36415; 70553; 80069; A9575

== ENCOUNTER → 2019-07-25 13:47 | Outpatient (CLI) | payer OTHER, SELFPAY ==
[2018-12-25 17:58] VITALS: BMI 33.7
--- NOTE | 2019-07-25 13:50 | RAD_ITS ---
STUDY: X-RAY - LUMBAR SPINE REASON FOR EXAM: Male, 54 years old. BACK PAIN X1 WEEK, NKI TECHNIQUE: 3 view(s) of the lumbar spine were obtained. COMPARISON: 08/25/2014 FINDINGS: Normal lumbar lordosis. There is no substantial scoliosis. There is a normal alignment of the vertebrae. Normal vertebral bodies and endplates. Normal disc space heights. There is no demonstrated fracture. The soft tissue structures are unremarkable. RAD/Lumbar Spine 2 or 3 Views IMPRESSION: No change and no significant abnormality. Electronically Signed: Calvin Gomes MD at 22:51 EDT , Service support ,
== END ==
PROVIDERS: PCP Family Medicine; Referring Provider Anesthesiology Pain Medicine; Visit Provider Anesthesiology Pain Medicine
DX: M54.9 Dorsalgia, unspecified (principal); M79.606 Pain in leg, unspecified
CPT/HCPCS: 72100

== ENCOUNTER 2019-08-28 16:30 | Outpatient (RCR) | payer OTHER, SELFPAY ==
[2018-12-25 17:58] VITALS: BMI 33.7
--- NOTE | 2019-08-07 17:34 | HP.PTEVAL_ITS ---
Patient's Visit Information KRYSTA MEJIA is a 54 year old M referred to Physical Therapy by Dr. Mathew Thayer MD with a diagnosis of LBP, L leg pain. Date of Evaluation: 07/31/19 Physical Therapist: Shorty Loera DPT - Visit Plan Frequency: 2x /Week Duration: 4 Weeks Plan: Start with sligth extension, progressing as tolerated. Add in core stability once ready. - Subjective Pt. is here today for his initial evaluation with diagnosis of back pain and L leg pain. Pt. reports ahving pain fro ~ 2weeks now. He did have an injection which did help, but is still ahving some issues. He reports no mech of injury and no previous injuries. 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 Pt. has pain radiating down the anterior thigh on the L side. Pt. reports sitting increases his symptoms, but walking is better. Pt. reports no hip pain. Symptoms stop prior to his knee. Reports no B/B changes. Pt. is sleeping well, but has difficulty throughout the day at work. Pt. reports the pain is less of a symptom compared to his numbness. Pt. is hopeful to reduce his symptoms in order to get back to all recreational and work activities without limitations. - Pain Lumabr spine Pain Intensity (Out of 10): 3 Pain Intensity Range: 0, 5 L thigh Pain Intensity (Out of 10): 3 Pain Intensity Range: 0, 5 - Objective POSTURE: Pt. has slight sway back posture. Pt. is able to improve her posture with VCing. PALPATION: Pt. has no tenderness to palpation. NEURO: Normal throughout. ROM: LUMBAR SPINE: flexion mod loss increase NW, extension- min loss increase NW, SB min loss NE, rotation min loss NE. MMT: Pt. has good strength, except 4/5 L knee extension, L knee flexion, core strength- fair. GAIT: Pt. has slight flexed posture. Pt. is able to correct, but ahs increased symptoms. - Special Tests L/S Slump test left side: Positive L/S Slump test right side: Negative L/S Left Straight Leg Raise: Positive L/S Right Straight Leg Raise: Negative - Goals Goal 1:: LTG: Pt. to be I with HEP. Goal Time Frame: 4-6 Weeks Goal 2:: STG: Pt. to have full lumbar ROM withotu incerase in symptoms. Goal Time Frame: 2-4 Weeks Goal 3:: LTG: Pt. to report reduced N/T in LLE by 25%. Goal Time Frame: 4-6 Weeks Goal 4:: LTG: Pt. to have full strength of LLE withotu increase in symptoms. Goal Time Frame: 4-6 Weeks Goal 5:: LTG: Pt. to walk unlmited distances without increase in symptoms. Goal Time Frame: 4-6 Weeks Goal 6:: LTG: pt. to sit for unlimited time frames without increase in symptoms. Goal Time Frame: 4-6 Weeks - Rehabilitation Potential Physical Therapy Diagnosis: Pt. has signs symptoms consistent with L leg radiating pain, discogenic involvement. Pt. would benefit from PT to work on ROM and strengthenign as tolerated. Rehabilitation Potential: Excellent - Anticipated Interventions Patient/Client Instruction: Educate patient on: Condition, Plan of Care, Risk Factors, Benefits of Fitness Program For the Purpose of:: To facilitate caregiver knowledge, To improve self management, To prevent re-injury, To improve ability to perform tasks related to life management, To improve tolerance to ADL's Therapeutic Exercise to Include: Strength training, Power training, Postural training, Flexibilty training, Gait and locomotor training, Passive ROM, Active ROM, Dynamic Lumbar Stabilization, Romi Exercises For the Purpose of:: To decrease pain, To decrease swelling/inflammation, To increase ROM, To improve nutrient delivery to tissue, To increase oxygenation perfusion, To improve muscle performance and motor function, To improve health of tissue, To decrease soft tissue restriction, To increase flexibility/ROM IF ES: Yes Cryotherapy (ice pack, ice massage): Yes Thermo therapy (hot pack): Yes Ultrasound (thermal/non thermal): Yes For the Purpose of:: To decrease pain, To decrease swelling/inflammation, To increase ROM Thank you for the opportunity to evaluate your patient. For Medicare and Medicare HMO plans, please review the plan of care and approve it. It will need to be FAXED BACK to us at [phone] for Medicare purposes. For Medicare only, by signing this I certify the plan of care. Please let me know if there are questions or concerns regarding this plan of care. Physician Signature: Date:
--- NOTE | 2019-08-28 16:55 | HP.PTREVAL_ITS ---
Dr. Mathew Thayer MD, It has been my pleasure to treat KRYSTA MEJIA over the last 9 visits for LBP, L leg pain. Please see the progress note below for an update on the physical therapy plan of care! Subjective: Pt. reports being 90% better overall. He mentions having occassional pinching if he moves wrong, but very infrequent. Pt. has no pain at rest, but does have some lateral L thigh numbness. Pt. reports being HEp compliant without issues. Objective/Function: Lumbar ROM: extension- min/nil loss NE, flexion nil loss NE, rotation nil loss bilat NE, SB nil loss bilat NE. MMT: 5/5 throughout BLEs, fair core strength. PT. does have some numbness at lateral L thigh, but other than christine has very minimal symptoms. He is being consistent with his extension progression and core stability exercises. Plan Plan: Pt. is to trial exercises on own with focus on lumbar extension progressio n and core stability. Pt. to see physician in 2 weeks. I will DC patient if I do not here from him in 2 weeks, back to physician. Goals Goal 1:: LTG: Pt. to be I with HEP. Goal Time Frame: 4-6 Weeks Goal Progress: Goal Met Goal 2:: STG: Pt. to have full lumbar ROM withotu incerase in symptoms. Goal Time Frame: 2-4 Weeks Goal Progress: Goal Met Goal 3:: LTG: Pt. to report reduced N/T in LLE by 25%. Goal Time Frame: 4-6 Weeks Goal Progress: Progressing Goal 4:: LTG: Pt. to have full strength of LLE withotu increase in symptoms. Goal Time Frame: 4-6 Weeks Goal Progress: Goal Met Goal 5:: LTG: Pt. to walk unlmited distances without increase in symptoms. Goal Time Frame: 4-6 Weeks Goal Progress: Goal Met Goal 6:: LTG: pt. to sit for unlimited time frames without increase in symptoms. Goal Time Frame: 4-6 Weeks Goal Progress: Goal Met Anticipated Interventions Patient/Client Instruction: Educate patient on: Condition, Plan of Care, Risk Factors, Benefits of Fitness Program For the Purpose of:: To facilitate caregiver knowledge, To improve self management, To prevent re-injury, To improve ability to perform tasks related to life management, To improve tolerance to ADL's Therapeutic Exercise to Include: Strength training, Power training, Postural training, Flexibilty training, Gait and locomotor training, Passive ROM, Active ROM, Dynamic Lumbar Stabilization, Romi Exercises For the Purpose of:: To decrease pain, To decrease swelling/inflammation, To increase ROM, To improve nutrient delivery to tissue, To increase oxygenation perfusion, To improve muscle performance and motor function, To improve health of tissue, To decrease soft tissue restriction, To increase flexibility/ROM IF ES: Yes Cryotherapy (ice pack, ice massage): Yes Thermo therapy (hot pack): Yes Ultrasound (thermal/non thermal): Yes For the Purpose of:: To decrease pain, To decrease swelling/inflammation, To increase ROM Please do not hesitate to contact me at [phone] by phone or if you have questions or concerns regarding this new plan of care! Sincerely, MITCH JacksonT
== END 2019-08-28 19:00 | disposition home or self-care (01) ==
LOC: PT 16:30
PROVIDERS: PCP Family Medicine; Referring Provider Anesthesiology Pain Medicine; Visit Provider Anesthesiology Pain Medicine
DX: M54.9 Dorsalgia, unspecified (principal); M79.606 Pain in leg, unspecified
CPT/HCPCS: 97014; 97110; 97161; 97164; G0283

== ENCOUNTER → 2019-09-24 08:03 | Outpatient (CLI) | payer OTHER, SELFPAY ==
[2018-12-25 17:58] VITALS: BMI 33.7
--- NOTE | 2019-09-24 08:06 | VDLE_ITS ---
Reason For Study: edema RIGHT LEFT CFV is compressible, spontaneous, phasic, CFV is compressible, spontaneous, phasic, competent and demonstrates normal competent, and demonstrates normal augmentation. augmentation. FV is compressible, spontaneous, phasic, FV is compressible, spontaneous, phasic, competent and demonstrates normal competent and demonstrates normal augmentation. augmentation. POP V is compressible, spontaneous, phasic, POP V is compressible, spontaneous, phasic, competent and demonstrates normal competent and demonstrates normal augmentation. augmentation. T/P Trunk is compressible. T/P Trunk is compressible. PTV is compressible. PTV is compressible. RT PerV is compressible. LT PerV is compressible. SFJ is competent and measures .51 x .71 cm. SFJ is competent and measures .41 x .49 cm. GSV proximal thigh measures .33 x .35 cm. GSV proximal thigh measures .25 x .29 cm. GSV at knee measures .29 x .27 cm. GSV at knee measures .24 x .24 cm. GSV INCOMPETENT throughout for greater than GSV above knee is competent. 0.5 seconds. GSV below knee is INCOMPETENT for greater SSV proximal calf is competent and than 0.5 seconds. measures .45 x .52 cm. SSV proximal calf is competent and Procedure measures .36 x .35 cm. Exam performed in department. The exam was diagnostic. A preliminary report was called and/or faxed to Dr. Frye. Interpretation Summary Deep veins of the lower extremities are bilaterally patent and compressible segmentally. There is no evidence of deep vein thrombosis on either side. Valvular competence appears intact within the proximal deep venous systems bilaterally. The great saphenous veins appear bilaterally patent and compressible segmentally. Sapheno-femoral junctions are bilaterally competent . The right great saphenous vein appears segmentally incompetent. The left great saphenous vein appears competent above the knee. The left great saphenous vein appears incompetent below the knee. Small saphenous veins are patent and competent bilaterally. Ordering Physician: Juan Frye Performed By: Richi Delgadillo RVT
== END ==
PROVIDERS: PCP Family Medicine; Referring Provider Family Medicine; Visit Provider Family Medicine
DX: I87.2 Venous insufficiency (chronic) (peripheral) (principal); R60.0 Localized edema
CPT/HCPCS: 93970

== ENCOUNTER → 2020-02-14 17:12 | Outpatient (CLI) | payer OTHER, SELFPAY ==
[2018-12-25 17:58] VITALS: BMI 33.7
--- NOTE | 2020-02-14 17:30 | MRI_ITS ---
STUDY: MRI BRAIN WITH AND WITHOUT CONTRAST REASON FOR EXAM: Male, 54 years old. Follow-up LEFT acoustic neuroma. Increase in vertigo, pressure in head when laying on back TECHNIQUE: Standardized multiplanar fat and water weighted pulse sequences were obtained. Pt received 25ml Dotarem via IV was administered for the contrast portion of the examination. COMPARISON: 01 January 2019, 31 October 2017 FINDINGS: Left acoustic neuroma has slowly enlarged from 2018 through 2019 until now measuring initially 8 mm in AP dimension, now 1.3 cm and 1.1 cm in transverse dimension, now 1.3 cm. The lesion is centered on the porous acoustic is entering into the internal artery canal but not reaching the cribriform plate. Contralateral right temporal bone and related contents are normal. Normal size of the ventricles and extra-axial spaces for the patient''s age. Normal white matter tracts of the supratentorial brain. Normal bilateral basal ganglia. Normal thalami. There is no extra-axial fluid accumulation. Normal flow voids within the major intracranial circulation suggesting patency by spin echo criteria. Normal venous enhancement. There is no enhancing intra-axial or extra-axial abnormality. Normal sella turcica, pituitary gland, infundibular stalk, optic chiasm and hypothalamus. Normal tectal plate and pineal gland. Normal midbrain, clifford and medulla. Normal cerebellum. Normal basal cisterns. Normal bilateral temporal bones. No demonstrated orbital abnormality, within the constraints of a routine brain study. Normal visualized paranasal sinuses. Normal calvarium and skull base. Normal visualized soft tissue structures. Normal visualized upper cervical spine. MRI/Brain W/WO Contrast IMPRESSION: Slowly progressively increasing left acoustic neuroma, now 1.3 x 1.3 cm. Normal remainder of the brain. Electronically Signed: Liborio Warren, at 20:47 EST Tel , Service support ,
== END ==
PROVIDERS: PCP Family Medicine; Referring Provider Otolaryngology; Visit Provider Otolaryngology
DX: D33.3 Benign neoplasm of cranial nerves (principal)
CPT/HCPCS: 70553; A9575

== ENCOUNTER → 2020-12-01 17:05 | Outpatient (CLI) | payer OTHER, SELFPAY ==
--- NOTE | 2020-12-01 17:30 | MRI_ITS ---
STUDY: MRI BRAIN WITH AND WITHOUT CONTRAST (ATTENTION INTERNAL AUDITORY CANALS - I.A.C.''s) REASON FOR EXAM: Male, 55 years old. LEFT acoustic neuroma s/p gamma knife resection TECHNIQUE: Standardized multiplanar fat and water weighted pulse sequences were obtained. IV 25ml Dotarem was administered for the contrast portion of the examination. COMPARISON: 02/14/2020 and 02/21/2017 FINDINGS: Again noted is the left CP angle mass (presumed acoustic neuroma) which extends into the porus acoustics. This mass measures approximately 1.3 x 1.2 x 1.5 cm and demonstrates central nonenhancement suggestive of necrosis now. It previously measured 1.2 x 1.0 x 1.3 cm in February 2021. This mass is significantly larger when compared with the prior examination 2017 where it measured approximately 1.0 x 0.7 x 0.8 cm Unremarkable enhancement of the right VIIth or VIIIth cranial nerves. MRI/Brain W/WO Contrast IMPRESSION: Continued slow enlargement of the left CP angle mass with central necrosis now. Electronically Signed: Matthew Noel MD at 14:52 EDT Tel , Service support ,
== END ==
PROVIDERS: PCP Family Medicine
DX: D33.3 Benign neoplasm of cranial nerves (principal); Z92.3 Personal history of irradiation
CPT/HCPCS: 70553; A9575

== ENCOUNTER → 2020-12-07 13:00 | Outpatient (CLI) | payer OTHER, SELFPAY | PROVIDERS: PCP Family Medicine; Visit Provider Family Medicine | DX: Z46.89 Encounter for fitting and adjustment of other specified devices (principal) ==

== ENCOUNTER 2021-02-01 16:15 | Outpatient (RCR) | payer OTHER, SELFPAY ==
[2018-12-25 17:58] VITALS: BMI 33.7
--- NOTE | 2021-02-01 17:23 | DS.PCM_ITS ---
Massage Therapy Discharge Summary: Initial Evaluation Date: 06/17/20 Diagnosis: Shoulder pain/Cervicalgia No. of Visits: 7 Date of last visit: 02/01/21 This patient is being discharged from our care at the [facility]. Thank you, Katherine Shipley LMT
== END 2021-02-01 19:00 | disposition home or self-care (01) ==
LOC: MASS 16:15
PROVIDERS: PCP Family Medicine; Visit Provider Family Medicine
DX: M25.511 Pain in right shoulder (principal); M25.512 Pain in left shoulder; M54.2 Cervicalgia
CPT/HCPCS: 97124

== ENCOUNTER → 2021-06-14 | Outpatient (CLI) | payer OTHER, SELFPAY ==
--- NOTE | 2021-06-14 14:49 | MRI_ITS ---
STUDY: MRI BRAIN WITH AND WITHOUT CONTRAST (ATTENTION INTERNAL AUDITORY CANALS - I.A.C.''s) REASON FOR EXAM: Male, 55 years old.LESION OF BRAIN,SURVEILLANCE Follow-up LEFT acoustic neuroma. Increase in vertigo, pressure in head when laying on back TECHNIQUE: Standardized multiplanar fat and water weighted pulse sequences were obtained. ml of 25cc dotarem contrast material was administered intravenously for the contrast portion of the examination. COMPARISON: MRI of the brain/IAC dated December 01, 2020 FINDINGS: Slight interval decrease in the size of the left acoustic avidly enhancing nodule/ acoustic neuroma at the origin of the left 7th and 8th cranial nerve/cerebellar pontine angle, measuring 1.13 x 0.99 cm compared to the maximum measurement of 1.3 x 1.1 cm on the prior study. Slight expansion of the opening of the left IAC related to mass effect from the acoustic neuroma. This is unchanged from the prior study. Normal right internal auditory canal and 7th and 8th cranial nerves; without a demonstrated intracanalicular or cisternal vestibular schwannoma (acoustic neuroma). Normal bilateral temporal bones. Normal bilateral cochlea, vestibules and semicircular canals. Normal size of the ventricles and extra-axial spaces for the patient''s age. Normal white matter tracts of the supratentorial brain. There is no evidence for recent intracranial ischemia or other cause of cytotoxic edema on diffusion weighted imaging (DWI). Normal T2* images of the brain without demonstrated susceptibility artifact. There is no demonstrated hemosiderin stain. Normal bilateral basal ganglia. Normal thalami. Normal flow voids within the major intracranial circulation suggesting patency by spin echo criteria. Normal venous enhancement. There is no enhancing intra-axial or extra-axial abnormality. No abnormal lesions or signal of the brain parenchyma or abnormal enhancement. No thickening or abnormal enhancement of the meninges or dura There is no extra-axial fluid accumulation. Normal sella turcica, pituitary gland, infundibular stalk, optic chiasm and hypothalamus. Normal tectal plate and pineal gland. Normal midbrain, clifford and medulla. Normal cerebellum. Normal basal cisterns. No demonstrated orbital abnormality, within the constraints of a routine brain study. Normal visualized paranasal sinuses. Normal calvarium and skull base. Normal visualized soft tissue structures. Normal visualized upper cervical spine. MRI/Brain W/WO Contrast IMPRESSION: 1. Slight interval decrease in the size of the left acoustic avidly enhancing nodule/ acoustic neuroma at the origin of the left 7th and 8th cranial nerve/cerebellar pontine angle, measuring 1.13 x 0.99 cm compared to the maximum measurement of 1.3 x 1.1 cm on the prior study. 2. Slight expansion of the opening of the left IAC related to mass effect from the acoustic neuroma. This is unchanged from the prior study. 3. Normal unenhanced and enhanced MRI of the brain and right internal auditory canal. Electronically Signed: Sage Mendez MD at 10:40 EDT ,
== END | disposition home or self-care (01) ==
LOC: MRI 14:47
PROVIDERS: PCP Family Medicine
DX: C71.9 Malignant neoplasm of brain, unspecified (principal); C72.9 Malignant neoplasm of central nervous system, unspecified; G93.9 Disorder of brain, unspecified
CPT/HCPCS: 70553; A9575

== ENCOUNTER 2021-11-08 17:00 | Outpatient (RCR) | payer OTHER, SELFPAY ==
--- NOTE | 2021-09-15 17:26 | HP.OTEVAL ---
Patient's Visit Information KRYSTA MEJIA is a 56 year old M, referred to Occupational Therapy by Dr. Juan Frye DO, with a diagnosis of right left epi.. Date of Evaluation: 09/15/21 Occupational Therapist: Nadiya Jones, OTR/Ana, CHT - Subjective This 56 year old male was seen for OT eval with dx of right lateral epi. pt states he has been working with it since May. 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 - Pain right elbow 0 Pain Intensity Range: 4 - ROM Elbow: right/left WNL Forearm: Right/left pronation/supination WFL Wrist: right 60/75 left 80/75 - Strength Forearm: pronation 4/5 supination 5/5 Wrist: right ext 4/5 flex 4/5 left 5/5 Religious Leader: right 80 left 120 Lateral Pinch: right 24# left 24# Tripod Pinch: right 12# left 16# Strength Comments: elbow straight 55# left 120 - Special Tests Lat Epiconylitis - as named: positive - Quick DASH-Disab of Arm,Shoulder& Hand Quick DASH Score: 30.0000 - Goals Goal:100% adherence to protocol: Yes Comment: lateral epi protocol from ARSALAN hand/shoulder guidelines Goal:ROM equal to unaffected hand: Yes Goal:Religious Leader/Pinch strength at least 75% of unaffected hand: Yes Goal:No pain with affected hand use: Yes Goal:Full use of affected hand in daily activities including: Yes - Rehabilitation General Assessment: pt demo with positive right lateral epi. pt is limited with strength and pain increasing need of assistance or stopping daily tasks due to pain- pt would benefit from skilled OT services 2-3x week for 4 weeks to ed. pt on dx. precautions and work ergo- along with returning pt to PLOF- Today therapist ed. pt on friction massage to increase healing and circulation- forearm stretching in phase I and I of lateral epi handouts- pt demo understanding and agree to POC. Rehabilitation Potential: Good - Anticipated Interventions A/AAROM/PROM, Strengthening, Triggerpoint Release, Modalities, Orthoses, Joint Protection/Energy Conservation, Ergonomic Education, Education re assistive Equipment, Education re Diagnosis, Home Program - Visit Plan Frequency: 2-3x /Week Duration: 4 Weeks TEXT: Thank you for the opportunity to evaluate your patient. For Medicare and Medicare HMO plans, please review the plan of care and approve it. It will need to be FAXED BACK to us at [phone] for Medicare purposes. Please let me know if there are questions or concerns regarding this plan of care. Physician Signature: Date:
--- NOTE | 2022-02-24 13:51 | HP.OT.NRP ---
KRYSTA MEJIA was seen in my office for initial evaluation on 09/15/21. The following Plan of Care was established for this patient: Initial Frequency: 2-3x /Week Initial Duration: 4 Weeks Plan: Continue w/POC Anticipated Interventions: A/AAROM/PROM, Strengthening, Triggerpoint Release, Modalities, Orthoses, Joint Protection/Energy Conservation, Ergonomic Education, Education re assistive Equipment, Education re Diagnosis, Home Program This patient was last seen in our office 11/08/21. Pertinent comments regarding their Occupational therapy will appear below: pt was seen for 9 OT sessions. No further apts. have been scheduled and due to time lapse in services pt is d/c. At this point I will be discontinuing this patient from occupational therapy. I would be happy to see this patient again in the future if found appropriate by the physician. Thank you! Nadiya Jones, OTR/L, CHT
== END 2021-11-08 19:00 | disposition home or self-care (01) ==
LOC: OT 17:00
PROVIDERS: PCP Family Medicine; Referring Provider Family Medicine; Visit Provider Family Medicine
DX: M77.8 Other enthesopathies, not elsewhere classified (principal); M77.11 Lateral epicondylitis, right elbow
CPT/HCPCS: 97035; 97110; 97166; 97530

== ENCOUNTER → 2022-07-06 | Outpatient (CLI) | payer OTHER, SELFPAY ==
--- NOTE | 2022-07-06 06:44 | MRI_ITS ---
INDICATION: L ACOUSTIC NEUROMA EXAMINATION: MRI - MR Attn IACs and/or Temporal Bones WO/W Contrast TECHNIQUE: MRI examination brain and IACs obtained with standard protocol including multiplanar multiecho pre and postcontrast imaging. High-resolution imaging of the posterior cranial fossa with attention to the IACs also obtained. IV Contrast Dosage and Agent: 22 mL Clariscan COMPARISON: 04/14/2021 FINDINGS: HEMISPHERES, CEREBELLUM AND BRAINSTEM: 1. The cerebral parenchyma, ventricular system, subarachnoid spaces have normal configuration and density. There is a normal gyral pattern. There is normal dominguez/white differentiation. No midline shift.. 2. The hemispheric white matter has normal appearance. 3. No intraparenchymal mass, hemorrhage, or acute territorial infarct. 4. The cerebellum, brainstem, basilar and suprasellar cisterns have normal appearance. No Chiari malformation. 5. There is normal appearance of the brainstem. There is redemonstration of a enhancing mass at the LEFT CP angle extending into the porus acusticus on the LEFT, measuring 9.8 x 9.6 x 10.4 mm. There is diffuse homogeneous intense enhancement. There is mild persistent widening of the porus acusticus. There has been minimal decrease in size. Findings are consistent with a vestibular schwannoma. In comparison to prior exam, the mass same level measured 9.6 x 9.6 x 11.7 mm (06/14/2021) there is normal appearance of the 7th and 8th cranial nerve complex on the RIGHT. Normal appearance and membranous labyrinth bilaterally. Mastoid air cells and middle ear cavities are clear. PITUITARY: Infundibulum and pituitary have normal configuration. Midline structures appear normal. CSF SPACES: Appropriate for age. No hydrocephalus. Basal cisterns are patent. VESSELS: 1. There are normal flow voids noted in the great vessels at the skull base ORBITS AND PARANASAL SINUSES: 1. Both globes, extraocular muscles, optic nerves and retrobulbar fat appear unremarkable. 2. Minimal mucosal thickening in the ethmoid maxillary sinuses. BONY ELEMENTS: Bony elements of the cranial vault, facial skeleton and skull base have normal appearance. SCALP AND SOFT TISSUES: Normal appearance of the soft tissues of the scalp and the visualized face OTHER: None MRI/Brain W/WO Contrast IMPRESSION: 1. Slight decrease in size of the LEFT vestibular schwannoma, currently measuring 9.8 x 9.6 x 2.4 mm. Mild persistent expansion of the porous acusticus. 2. Remaining 7th and 8th cranial nerve complexes, membranous labyrinth, the mastoid air cells and middle ear cavities have normal appearance. 3. Normal MRI examination of the brain without intraparenchymal mass, hemorrhage, or acute territorial infarct. 4. No other areas of abnormal intraparenchymal or extra-axial contrast enhancement. Electronically Signed: Igor George MD at 0:59 EDT ,
[2022-07-06 08:21] LABS: CREATININE FINGERSTICK < 0.90 mg/dL (0.70-1.30); EGFR FINGERSTICK > 60 mL/min (>60)
[2022-07-06 12:42] LABS: CREATININE FINGERSTICK < 0.9 mg/dL (0.70-1.30)
[2022-07-06 12:43] LABS: EGFR FINGERSTICK > 60 mL/min (>60)
== END | disposition home or self-care (01) ==
LOC: MRI 06:34
PROVIDERS: PCP Family Medicine
DX: D33.3 Benign neoplasm of cranial nerves (principal)
CPT/HCPCS: 70553; A9575

== ENCOUNTER 2022-07-13 12:21 | Emergency (ER) | payer OTHER, SELFPAY ==
[2022-07-13 12:22] VITALS: BP 181/103; PULSE 71; RESP 16; TEMP 36.9; O2SAT 96; BMI 34.2
--- NOTE | 2022-07-13 12:41 | ED.VIS.GI ---
HPI HPI - GI History of Present Illness Chief Complaint: Abd Pain Detail of Chief Complaint: Abdominal pain Informant: patient Narrative Narrative: Patient presents to the emergency department with complaint of abdominal pain that he had for several weeks. Patient describes the pain around his bellybutton. Patient sometimes feels like there is a lump there and sometimes goes away. He was seen by his primary care physician today and had a discussion with general surgery who recommended that patient come to the emergency department. Patient's not had any vomiting. Has not had any fever. He has had no other abdominal surgeries. He denies urinary symptoms. [facility] Medical History (Updated 07/13/22 @ 14:[address] Atul Hamilton, DO) Acoustic neuroma Asthma Difficulty balancing History of hemorrhoids Knee pain NECK AND BACK PAIN Severe headache Home Medications loratadine 10 mg capsule 10 mg PO DAILY PRN Allergies 11/02/18 [History Last Taken Unknown] albuterol sulfate 90 mcg/actuation aerosol inhaler (ProAir HFA) 1 puff inhalation Q6H PRN shortness of breath #6.7 grams 12/25/18 [Rx Last Taken Unknown] albuterol sulfate 90 mcg/actuation aerosol inhaler (Proventil HFA) 1 puff inhalation Q6H 12/25/18 [History Last Taken Unknown] azithromycin 250 mg tablet See Rx Instructions PO .COMPLEX #6 tabs 12/25/18 [Rx Last Taken Unknown] guaifenesin 1,200 mg tablet, extended release 12 hr (Mucinex) 1,200 mg PO BID 12/25/18 [History Last Taken Unknown] ibuprofen 100 mg tablet (Advil) 200 mg PO Q6H 12/25/18 [History Last Taken Unknown] Allergy/AdvReac Type Severity Reaction Status Date / Time Gadolinium-MRI Contrast Allergy Hives Verified 07/13/22 12:22 Medium Penicillins Allergy Unknown Verified 07/13/22 12:22 Surgical History History of left knee surgery Social History (Updated 12/25/18 @ 18:08 by Donell SCHUSTER, PA) Smoking Status: Never smoker alcohol intake: current alcohol intake frequency: a few times a week ROS ROS ED Review of Systems ROS Unobtainable: other Constitutional Constitutional ED: Reports lethargy; Denies chills, fever(s), sweats or weight loss Eyes Eyes: Denies blurry vision, change in vision or diplopia ENT ENT ED: Denies rhinorrhea or sore throat Cardiovascular Cardiovascular: Denies chest pain, orthopnea or racing heartbeat Respiratory/Chest Respiratory/Chest: Denies cough, dyspnea, dyspnea on exertion, orthopnea or sputum Gastrointestinal Gastrointestinal: Reports abdominal pain; Denies diarrhea, nausea or vomiting Genitourinary Genitourinary ED: Denies dysuria, hematuria or urinary frequency Musculoskeletal Musculoskeletal: Denies arthralgias, back pain, myalgias or neck pain Integumentary Denies abscess, Abrasions or rash Neurologic Neurologic: Denies headache(s) or weakness Psychiatric Psychiatric: Denies anxiety, depression or suicidal thoughts Endocrine Endocrinology: Denies polydipsia, polyphagia or polyuria Hematologic/Lymphatic Hematologic/Lymphatic: Denies easy bleeding, easy bruising or lymphadenopathy Allergic/Immunologic Allergic/Immunologic ED: Denies mouth swelling, tongue swelling or urticaria EXAM Physical Exam Const Vital Signs: 07/13/22 12:22 Temperature 98.4 F Temperature Source Temporal Pulse Rate 71 Respiratory Rate 16 Blood Pressure 181/103 H Blood Pressure Mean 129 Pulse Ox 96 Oxygen Delivery Method Room Air Positive well nourished and well developed General Appearance ED: well developed and NAD HEENT Reports TM's clear and moist mucous membranes normocephalic and atraumatic; Negative for trauma or tenderness Tympanic Membrane ED: Yes TM's clear Eyes PERRL and EOMs intact bilaterally General Eye ED: Negative for pale conjunctiva or scleral icterus Neck no lymphadenopathy, supple and no JVD General: Negative for tenderness Chest Wall inspection of chest normal and palpation of chest normal Chest: Negative for tenderness Resp normal respiratory effort and clear to auscultation bilaterally Effort and Inspection: Negative for respiratory distress or pain with movement Auscultation: Negative for rhonchi, wheezes or diminished lung sounds Cardio regular rate, regular rhythm, S1 normal heart sound, S2 normal heart sound and no murmurs Peripheral Pulses: pulses 2+ throughout GI normal to inspection, nondistended, normoactive bowel sounds, soft to palpation, non-distended and no masses GI Narrative: Patient has mild tenderness over the umbilicus and I am able to palpate a small defect in the umbilicus in the in the abdominal wall initially there was small piece of bowel there there was able to reduce. There is no discoloration noted to the abdominal wall. There is no ecchymosis or bruising. There is no rebound, rigidity, or peritoneal signs Back/Spine no CVA tenderness and no thoracic nor lumbar tenderness Extremity normal to inspection General Extremety ED: Negative for edema General Extremity: Negative for edema Neuro oriented x3, CN's II-XII intact bilaterally, no sensory deficits noted and gait normal Sensorium / Orientation: awake, alert, oriented to person, oriented to place and oriented to time Motor Exam: strength 5/5 throughout and strength abnormal Psych mental status grossly normal Skin no rashes or lesions noted and no wounds MDM MDM MDM Narrative Medical decision making narrative: Patient presents with small umbilical hernia that is been causing him pain for about 2 weeks. In the differential would be strangulation or incarceration. Suspicion for this however is low given that I am able to reproduce the hernia in palpate the defect. CBC with differential obtained was normal. Chemistries and lactate normal. I did obtain a CT scan of the abdomen pelvis with IV contrast that showed a small umbilical hernia containing fat and bilateral parapelvic renal cysts. I did discuss case with Dr. Omer who asked the patient follow-up with his office. His primary care physician ordered pain medications for him. Patient advised to return if worsening pain, fever, vomiting, redness or discoloration to the area or condition should worsen anyway. Lab Data Labs: Laboratory Results - last 24 hr 07/13/22 07/13/22 07/13/22 12:45 12:45 12:45 WBC 5.9 RBC 4.69 Hgb 15.0 Hct 44.0 MCV 93.8 MCH 32.0 MCHC 34.1 RDW Std Deviation 44.0 H RDW Coeff of Anita 12.9 Plt Count 206 MPV 9.8 Immature Gran % (Auto) 0.800 Neut % (Auto) 72.9 H Lymph % (Auto) 15.5 L [place] % (Auto) 7.6 Eos % (Auto) 2.4 Baso % (Auto) 0.8 Absolute Neuts (auto) 4.3 Absolute Lymphs (auto) 0.92 Nucleated RBC % 0 Sodium 140 Potassium 3.9 Chloride 108 H Carbon Dioxide 27.0 Anion Gap 5 BUN 16 Creatinine 1.03 Estim Creat Clear Calc 99.49 Est GFR (MDRD) Af Amer 96 Est GFR (MDRD) Non-Af 80 BUN/Creatinine Ratio 15.5 Glucose 94 Lactic Acid 0.7 Calcium 8.7 Radiography Diagnostic Testing: Clinical Impression(s) from Imaging Studies Abdomen/Pelvis CT 07/13/22 13:08 IMPRESSION: Small umbilical hernia containing fat. Fatty infiltration of the liver. Bilateral parapelvic renal cysts. Electronically Signed: Robin Mcgee MD at 13:31 EDT , Discharge Plan Triage Chief Complaint: Abd Pain ED Provider: Atul Hamilton Dx/Rx/DC Orders Clinical Impression: Hernia, umbilical Instructions: ED Hernia (Adult) Prescriptions: No Action albuterol sulfate [Proventil HFA] 90 mcg/actuation HFA aerosol inhaler 1 puff INHALATION Q6H ibuprofen [Advil] 100 mg tablet 200 mg PO Q6H guaifenesin [Mucinex] 1,200 mg tablet extended release 12hr 1,200 mg PO BID azithromycin 250 mg tablet See Rx Instructions PO .COMPLEX Qty: 6 0RF Rx Instructions: take 500 mg today (day 1), then 250 mg for 4 days (days 2-5) PO albuterol sulfate [ProAir HFA] 90 mcg/actuation HFA aerosol inhaler 1 puff INHALATION Q6H PRN (Reason: shortness of breath) Qty: 6.7 0RF loratadine 10 MG capsule 10 mg PO DAILY PRN (Reason: Allergies) Primary Care Provider: Juan Frye Referrals: Eric Omer MD [Med Staff - Active Staff] - 3-5 Days Juan Frye DO [Primary Care Provider] - Disposition Disposition: Home, Self Care
[2022-07-13 13:03] LABS: Absolute Lymphocyte Count 0.92 X10^3/uL (0.83-4.51); Absolute Neutrophil Count 4.3 X10^3/uL (2.0-7.7); Basophil# 0.05 X10^3/uL; Basophil% 0.8 % (0-1); Eosinophil# 0.14 X10^3/uL; Eosinophils% 2.4 % (0-5); Lymphocyte # 0.92 X10^3/ul (0.83-4.51); Lymphocyte % 15.5 % (19-41); Mean Corp Hgb Conc 34.1 g/dL (32-36); Mean Corpuscular Volume 93.8 fL (80-94); Mean Platelet Vol. 9.8 fl (6.2-12.0); Monocyte# 0.45 X10^3/uL; Monocyte% 7.6 % (0-10); NRBC Flagged by Analyzer 0 % (0-5); Neutrophil # 4.31 X10^3/uL (2.7-7.7); Neutrophil % 72.9 % (47-70); Platelet Count 206 K/mm3 (150-450); RBC Distribution Width CV 12.9 % (11.6-14.6); Red Blood Count 4.69 M/mm3 (4.6-6.2); White Blood Count 5.9 K/mm3 (4.4-11.0)
--- NOTE | 2022-07-13 13:08 | CT_ITS ---
STUDY: CT ABDOMEN AND PELVIS WITH CONTRAST REASON FOR EXAM: Male, 57 years old. Abdominal pain, umbilical hernia RADIATION DOSAGE (If Supplied By Facility): CTDIvol = ( 15.39 ) mGy, DLP = ( 1417.92 ) mGy TECHNIQUE: Transaxial images were obtained from the dome of the diaphragm to the symphysis pubis without oral contrast. IV 100mL Isovue-300 was administered. Sagittal and coronal images were reconstructed. Individualized dose optimization techniques were used for this CT. COMPARISON: None. FINDINGS: Minimal degree of bibasilar linear atelectasis. The visualized portions of the heart are within normal limits. There is decreased attenuation of the liver consistent with steatosis. Calcified granulomas are seen in the right lobe of the liver. Normal gallbladder and extrahepatic biliary system. Normal spleen. Normal pancreas. Normal bilateral adrenal glands. Bilateral parapelvic renal cysts. Normal visualized stomach. Normal small intestine. There are multiple colonic diverticula consistent with diverticulosis. The appendix is visualized and appears normal. Normal abdominal aorta. Normal inferior vena cava. Normal retroperitoneum. Normal urinary bladder. Prostate is enlarged measuring 6 cm x 4.2 cm. There is a small umbilical hernia containing fat. Small benign appearing bilateral inguinal lymph nodes. There are mild degenerative changes of the visualized lumbar spine. CT/Abdomen/Pelvis W IV Cont ONLY IMPRESSION: Small umbilical hernia containing fat. Fatty infiltration of the liver. Bilateral parapelvic renal cysts. Electronically Signed: Robin Mcgee MD at 13:31 EDT ,
[2022-07-13 13:19] LABS: Anion Gap 5 (5-15); BUN 16 mg/dL (7-18); BUN/Creat Ratio 15.5 RATIO (10-20); Calcium,Total 8.7 mg/dL (8.5-10.1); Chloride 108 mmol/L (98-107); Creatinine, Serum 1.03 mg/dL (0.70-1.30); EST Glomerular Filtration Rate 80 mL/min (>60); Est Glom Filt Rate - Afr Amer 96 mL/min (>60); Estimated Creatinine Clearance 99.49 ml/min; Glucose 94 mg/dL (74-106); Potassium 3.9 mmol/L (3.5-5.1); Sodium Level 140 mmol/L (136-145)
[2022-07-13 13:35] LABS: Lactic Acid 0.7 mmol/L (0.4-1.9)
[2022-07-13 14:20] VITALS: RESP 16
== END 2022-07-13 14:20 | disposition home or self-care (01) ==
PROVIDERS: Emergency Provider Emergency Medicine; PCP Family Medicine; Visit Provider Emergency Medicine
DX: K42.9 Umbilical hernia without obstruction or gangrene (principal); N28.1 Cyst of kidney, acquired; Z79.899 Other long term (current) drug therapy
CPT/HCPCS: 74177; 80048; 83605; 85025; 99282; Q9967

== ENCOUNTER 2022-08-18 06:01 | Day surgery (SDC) | payer OTHER, SELFPAY ==
--- NOTE | 2022-08-10 07:31 | EKG12_ITS ---
Test Reason : PRE-OP Blood Pressure : / mmHG Vent. Rate : 071 BPM Atrial Rate : 071 BPM P-R Int : 160 ms QRS Dur : 108 ms QT Int : 402 ms P-R-T Axes : 039 -13 022 degrees QTc Int : 436 ms Normal sinus rhythm Normal ECG Confirmed by ASHLEY MISHRA, AMIRA ([id number]), sound editor RUTHIE QUIROGA ([id number]) on 08/10/2022 11:35:15 AM Referred By: Rip Gambino Confirmed By:SHIREEN RAMIREZ MD
--- NOTE | 2022-08-18 | HERN_PTH ---
PATIENT: KRYSTA MEJIA [place] [facility] [id number] AGE/SX: 57/M ROOM: RE08/18/[address]: Dr. Rip Gambino MD : [id number] BED: DIS: 08/18/2022 SPEC #: [id number] RECD: 08/18/22 13:17 STATUS: MIRNA NANNETTE #: [id number] GIGI: 08/18/22 00:[address]: Rip Gambino DEPT: SURGICAL PATHOLOGY RECD BY: Bladimir Miller ENTERED: 08/18/22 13:17 SP TYPE: Hernia OTHR DR: Dr. Juan Frye, DO Tissues: HERNIA Procedures: Surgery Specimen Level II HEADER OPERATION: Hernial, umbilical repair PRE-OP DIAGNOSIS: Acute umbilical hernia TISSUE SUBMITTED: Hernia MICROSCOPIC DIAGNOSIS Umbilical hernia, herniorrhaphy: Benign fibrofatty tissue. AM:am 08/19/22 MICROSCOPIC DESCRIPTION Slides are reviewed. GROSS DESCRIPTION Received in fixative is one container labeled with the patient's name and designated hernia. The specimen consists of one irregular piece of jennings soft tissue that measures 1 x 0.5 x 0.5 cm. The specimen serially sectioned and do not reveal any mass lesion and is totally submitted in one cassette. /SJ:cc 08/18/22 TC:5 CPT:61901
--- NOTE | 2022-08-18 06:13 | HP.PCM_ITS ---
History and Physical Date of Admission: 08/18/22 Intake Vital Signs 07/14/2311:22 07/19/2308:28 Height 6 ft 4 in 6 ft 4 in Weight: 281 lb 278 lb 2 oz BMI 34.2 33.8 BP 181/103 H 135/82 H Blood Pressure Location Rt brachial Position Sitting Respiration 16 18 Pulse 71 73 Pulse Source Monitor Temp 98.4 F 97.8 F Temp Source Temporal Temporal Pulse Oximetry (%) 96 98 Oxygen Delivery Method room air Intake Visit Reasons: SELF REFERRED POSSIBLE HERNIA Chief Complaint: hernia Allergies Gadolinium-MRI Contrast Medium Allergy (Verified 07/13/22 12:22) HivesPenicillins Allergy (Verified 07/13/22 12:22) Unknown Medications albuterol sulfate 90 mcg/actuation aerosol inhaler (ProAir HFA) 1 puff inhalation Q6H PRN shortness of breath #6.7 grams 12/25/18 [Rx Confirmed 12/25/18] albuterol sulfate 90 mcg/actuation aerosol inhaler (Proventil HFA) 1 puff inhalation Q6H 12/25/18 [History Confirmed 12/25/18] PFSH Medical History Acoustic neuroma Asthma Difficulty balancing History of hemorrhoids Knee pain NECK AND BACK PAIN Severe headache Surgical History History of left knee surgery Social History Smoking Status: Never smoker alcohol intake: current alcohol intake frequency: a few times a week HPI HPI HPI: Patient is a 57-year-old male here for umbilical bulging. He says this has been present for at least 2 months. He says about a month and a half ago started bothering him more. He says it bothers him and he is able to push it back in which does make it feel better. He denies any nausea or vomiting or fevers or chills. He has never had an incision in this area. ROS General General: Yes weight change and fatigue; No appetite, colon cancer, breast cancer or weakness HEENT HEENT: No difficulty swallowing, eye injury, eye surgery, swollen glands or hoarseness Endo Endocrine: No thyroid disease, diabetes mellitus, thyroid cancer, Hair loss, heat intolerance or cold intolerance Skin Skin: No rash or changing moles Breast Breast: No left breast lump, right breast lump, nipple discharge, breast pain, abnormal mammogram, abnormal US or breast enlargement Musc Musculoskeletal: Yes back problems; No arthritis, rheumatoid arthritis, gout or joint pain Cardio Cardiovascular: Yes high blood pressure; No murmur, pacemaker, heart disease, atrial fibrillation, heart attack, heart stent, palpitations, shortness of breat with exertion or chest pain Psych Psychiatric: No depression, anxiety or hearing voices Resp Respiratory: No shortness of breath, Yes sleep apnea, No cough, No COPD, Yes asthma, No emphysema and No wheezing Gastro Gastrointestinal: Yes abdominal pain, No nausea or vomiting, No diarrhea, Yes constipation, Yes blood in stool, Yes acid reflux, Yes hemorrhoids, Yes ulcers, No gallbladder problem and No black,tarry stools Gomez Hematologic: No blood thinners, No blood disorders, No bleeding, No anemia and No blood clots Neuro Neurologic: No system reviewed and no additional complaints, except as doc umented, No as per HPI, No abnormal gait, No abnormal hearing, No abnormal movements, No abnormal speech, No behavioral changes, No burning sensations, No confusion, No convulsions, No disequilibrium, No dizziness, No localized weakness, No frequent falls, No headache(s), No lack of coordination, No loss of vision, No memory loss, No numbness, No other visual disturbances, No radicular pain, No restless legs, No sensory deficit, No syncope, No tingling, No tremor(s), No weakness and No other Exam Const General: cooperative Orientation: alert and oriented x3 [facility] Head: normal to inspection Neck Neck: normal visual inspection and full ROM Chest Chest palpation & inspection: normal inspection of the chest Resp Effort & Inspection: normal respiratory effort Auscultation: clear to auscultation bilaterally Cardio Rate: regular rate Rhythm: regular rhythm GI Inspection: non-distended Palpation: soft, hernia umbilical and nontender Skin General: no rashes or lesions noted Neuro General: patient alert and patient oriented x3 Extrem General: full ROM Psych Appearance: grossly normal Mental Status: mental status grossly normal Assessment and Plan Assessment and Plan (1) Hernia, umbilical: Status: Acute Qualifiers: Obstruction and gangrene presence: without obstruction or gangrene Qualified Code(s): K42.9 - Umbilical hernia without obstruction or gangrene Plan: Patient is here with a small umbilical hernia. I discussed umbilical hernia repair with possible mesh. I explained that if the defect was over 1 cm I would like to place preperitoneal mesh. I discussed the procedure in detail as well as the risks of bleeding, infection, injury to underlying organs, recurrence of hernia. Patient understands the risks and is willing to proceed with umbilical hernia repair. Rip Gambino MD Pager: [facility] [address] [place] [address] [address] [place] [address] Office: I have examined the patient and the H&P has been reviewed. There are no clinical changes since date of exam.
[2022-08-18 06:39] VITALS: BP 139/85; PULSE 77; RESP 16; TEMP 36.1; O2SAT 96; BMI 33.3
[2022-08-18] MEDS: Lactated Ringers 1,000 ML 15 ML IV ×2 (06:47→08:23)
[2022-08-18] MEDS: Clindamycin 900 MG/50 ML BAG 75 MG IV (07:27)
[2022-08-18] MEDS: Bupivacaine Mpf 0.5% 30 ML VIAL (08:00)
[2022-08-18 08:18] VITALS: BP 134/85; BP 139/85; PULSE 81; RESP 18; TEMP 36.6; O2SAT 94
--- NOTE | 2022-08-18 08:25 | PCM.OPRPT ---
Report of Operation Date of Procedure: 08/18/22 Pre-Operative Diagnosis: Umbilical hernia Post-Operative Diagnosis: Umbilical hernia Surgery/Procedure Performed:: Umbilical hernia repair, 1 cm Type of Anesthesia: General/Regional Specimen's removed: Hernia sac Estimated Blood Loss (mL): 5 Description of Procedure: Patient was brought back to the operating room and general anesthesia was induced. The abdomen was prepped and draped in usual sterile fashion. A curvilinear incision was marked superior to the umbilicus and injected with local anesthetic. A curvilinear incision was then made. Electrocautery was used to take the hernia sac off of the umbilical stalk and remove the hernia sac. The preperitoneal fat was reduced. Patient had a 1 cm defect. It was reapproximated using interrupted 0 Nurolon sutures. The subcutaneous tissue was irrigated and suctioned dry and the incision was closed with interrupted 3-0 Vicryl sutures and a running 4-0 Monocryl suture. Steri-Strips and bandage was applied. Grafts/Implants Used: No mesh was used Admit VTE Documentation VTE Mechan Device Prophylaxis: SCD's
[2022-08-18 08:30] VITALS: BP 117/79; BP 139/85; PULSE 66; RESP 16; O2SAT 95
--- NOTE | 2022-08-18 08:44 | DCINST_ITS ---
Discharge Instructions Procedure Hernia Diet Discharge Diet: Light diet - advance as tolerated Activity Discharge Activity: May Not Drive (for 2-3 days or while taking narcotic pain meds.) and May Shower (with the bandage in place 1-2 days after surgery.) Lifting Restrictions: 20 pounds for 2 weeks. Additional Activity Instructions:: Climbing stairs is fine, walking is encouraged. Sitting in bed may be uncomfortable. Sitting up using your lateral muscles (sitting up sideways) is usually more comfortable. Do not drive, work heavy equipment of sign legal documents for 24 hours. Pain medications may cause nausea, you should typically eat light foods as you take your pain medications. Pain medications may also cause constipation. If you have difficulty with this, discuss with your doctor. Dressing / Incision Call your doctor if your incision/area has: Continuous Slow Oozing, Sudden Increased Bleeding, Increased Pain/ Swelling, Increased Redness and Foul Smelling Discharge Call your doctor if you observe: Fever of 101 or Higher Suture Line Care: Avoid Pulling/Pushing and Avoid Pinching/Bending Remove Dressing in: 2 days (Remove clear bandages in 2 days, remove Steri-Strips in 7 to 10 days.) Follow Up Care Please Follow Up With: Rip Gambino MD When: Please call to schedule 2 week follow up appointment. [phone] Test Results: Test results from this visit will be discussed in further detail at your follow- up appointment, if applicable. Discharge Plan Admission Attending Provider: Rip Gambino Primary Care Provider: Juan Frye Discharge Orders/Prescriptions Prescriptions: New oxycodone-acetaminophen [Percocet] 5-325 mg tablet 1 tab PO Q4H PRN (Reason: pain) 5 Days Qty: 15 0RF No Action albuterol sulfate [ProAir HFA] 90 mcg/actuation HFA aerosol inhaler 1 puff INHALATION Q6H PRN (Reason: shortness of breath) Qty: 6.7 0RF lisinopril 10 mg tablet 10 mg PO DAILY Patient Comments: TAKE 1 TABLET BY MOUTHnONCE DAILY Referrals / Follow Up: Juan Frye DO [Primary Care Provider] - Disposition Disposition (needs filled in before D/C Order can be placed): Home, Self Care
[2022-08-18 08:45] VITALS: BP 115/82; BP 139/85; PULSE 66; RESP 16; O2SAT 94
[2022-08-18 09:00] VITALS: BP 112/73; BP 139/85; PULSE 61; RESP 16; TEMP 36.2; O2SAT 94
[2022-08-18 10:45] VITALS: BP 136/79; BP 139/85; PULSE 68; RESP 18; TEMP 36.1; O2SAT 97
== END 2022-08-18 11:02 | disposition home or self-care (01) ==
LOC: SDC 06:01 → AC 06:02
PROVIDERS: PCP Family Medicine; Referring Provider Surgery; Visit Provider Surgery
PROC: (CPT 49591; principal; 2022-08-18 07:15)
DX: K42.9 Umbilical hernia without obstruction or gangrene (principal); J45.909 Unspecified asthma, uncomplicated; I10 Essential (primary) hypertension; E78.00 Pure hypercholesterolemia, unspecified; K21.9 Gastro-esophageal reflux disease without esophagitis; Z79.899 Other long term (current) drug therapy
CPT/HCPCS: 49591; 88302; 93005; J7120; J2405

== ENCOUNTER → 2022-10-11 | Outpatient (CLI) | payer OTHER, SELFPAY ==
[2022-10-11 17:51] LABS: PSA,Total - Annual Screen 2.66 ng/mL (0.00-4.00)
== END | disposition home or self-care (01) ==
PROVIDERS: PCP Family Medicine; Referring Provider Family Medicine; Visit Provider Family Medicine
DX: Z12.5 Encounter for screening for malignant neoplasm of prostate (principal)
CPT/HCPCS: 36415; 84153; G0103

== ENCOUNTER 2023-03-01 17:00 | Outpatient (RCR) | payer OTHER, SELFPAY ==
--- NOTE | 2022-10-26 16:27 | HP.PTEVAL_ITS ---
Patient's Visit Information Visit Information Visit Information: KRYSTA MEJIA is a 57 year old M referred to Physical Therapy by Dr. Juan Frye DO with a diagnosis of Dizziness and giddiness. Date of Evaluation: 10/24/22 Physical Therapist: OSCAR Hairston Visit Plan Frequency: 2x /Week Duration: 3 Months Plan: 2 X/ week for 3 months Subjective Subjective: Pt wants to see where his balance is. He feels that he is better but his says no. He feels that he is turning better and his feet react. He wants to try out the new balance machine. He feels that it was hard last time on foam with EC. He has been walking at least 1 mile at least 3-4 days a week. No falls. There is a narrow stretch of sidewalk that is narrow he stru ggles sometimes. He still gets dizzy if he moves his head too fast. He had Gamma Knife since the last time he was here. New MRI next spring. He struggles with picking up things from the floor. Dark rooms are tough for him (tripping over the bed). He generally gets dizzy 2-3 times a year and needs meds. ANDRADE are improved. He gets a ANDRADE couple of times a week and that is an improvement. He notices that he likes to shuffle more. Objective Objective: Gait: Walks with occ scissoring, and occ WBOS step out, no head movement and eyes mostly focused on the ground Smooth pursuit 20 seconds horizontal and was a little light headed (some jumpiness of the eyes during the movement) Smooth pursuit X 20 seconds. no dizziness but pressure behind the eyes (eyes would over shoot and correct back sometimes up and sometimes down. Focus on the X and turn head increased some dizziness and not a very large head turn or speed CATSIB: 50 FGA 12 LE MMT: R hip flex 17.7 and L hip flex 17.2 R knee ext 39 and L 32.1 R knee flex 15.3 and L 15 R DF 19.8 and L 23.1 Balance/Special Test Scores Functional Gait Assessment Score: 12 % Disability: 60.0000 CATSIB Score (Max score 120 seconds): 50 Dizziness Score: 30 Goals Goal 1:: I HEP Goal Time Frame: 6-8 Weeks Goal 2:: Increase balance (FGA at eval was 12) Goal Time Frame: 6-8 Weeks Goal 3:: Increase sensory aspect of balance (CATSIB score was 50 at initial eval) Goal Time Frame: 6-8 Weeks Goal 4:: Be able to complete smooth pursuit in standing both horizontal and vertical X 1 min Goal Time Frame: 6-8 Weeks Goal 5:: Be able to walk back to the treatment rooms with walking, talking and turning his head without veering or feeling dizzy Rehabilitation Potential Rehabilitation Potential: Good Anticipated Interventions Patient/Client Instruction: Educate patient on: Condition and Plan of Care For the Purpose of:: To improve muscle performance and motor function, To improve ability to perform ADL's, To increase tolerance to activity/condition/position, To improve performance and independence with ADL's, To decrease level of supervision to perform tasks, To improve ability of physical actions for home/community/work/leisure, To improve gait and locomotor functions, To improve endurance, To improve balance and To improve safety with gait Therapeutic Exercise to Include: Strength training, Endurance training, Balance training, Body mechanics, Postural training, Gait and locomotor training, Neuromotor development and Active ROM For the Purpose of:: To improve muscle performance and motor function, To improve ability to perform ADL's, To increase tolerance to activity/condition/position, To decrease level of supervision to perform tasks, To improve ability of physical actions for home/community/work/leisure, To improve gait and locomotor functions, To improve health of tissue, To decrease soft tissue restriction, To improve endurance, To improve balance and To improve safety with gait Functional Training to Include: Gait training For the Purpose of:: To improve gait and locomotor functions and To improve safety with gait Text: Thank you for the opportunity to evaluate your patient. For Medicare and Medicare HMO plans, please review the plan of care and approve it. It will need to be FAXED BACK to us at [phone] for Medicare purposes. For Medicare only, by signing this I certify the plan of care. Please let me know if there are questions or concerns regarding this plan of care. Physician Signature: Date:
--- NOTE | 2023-03-17 10:34 | HP.PTCOM_ITS ---
PT Communication Note 03/17/[address] Juan Frye, DO , Thank you for the referral of Gorge Vogel to our clinic. Enclosed are the results of his Biodex Balance Assessment. CATSIB composite score with feet shoulder width apart was 2.82 (12% impairment) with most of his trouble standing on foam with eyes open. CATSIB with feet together composite was 3.18 (20% impairment) with most of his trouble with eyes open on foam Limits of Stability.. pt struggled to weight shift FW out of all the directions but functional Motor Control Test:? was within normal limits which shows good dynamic control with sway. At this point in time Gorge is indep with a home program and is comfortable doing it at home. Will be honored to see him for a follow up if he feels that he needs additional PT in the future. Sincerely, Veronica Staton, [facility] Contact Information
--- NOTE | 2023-03-17 10:41 | HP.PTDCSUM ---
Discharge Summary D/C summary: It has been my pleasure to treat KRYSTA MEJIA referred by Dr. Juan Frye DO, with the diagnosis of Dizziness and giddiness for a total of 13 visit(s). Discharge Date: 03/01/23 Please see the following information for a summary of their discharge status. Subjective Subjective: Pt doing well overall Overall Improvement % Improvement: 80 Objective Objective/Function: CATSIB composite score with feet shoulder width apart was 2.82 (12% impairment) CATSIB with feet together composite was 3,18 (20% impairment) +++Most trouble was eyes open on foam surface+++ Limits of Stability.. pt struggled to weight shift FW out of all the directions Motor Control Test: was within normal limits which shows good dynamic control with sway. Copied over from 02-22-23 CATSIB 120/120 ( little wobbly on EC with foam but able to correct and compensate) Walking with horizontal and vertical head turns with very slight occ veering ... much improved Walking BW pt had no LOB doing this today Goals Goal 1:: I HEP Goal Progress: Goal Met Goal 2:: Increase balance (FGA at eval was 12) Goal Progress: Progressing Goal 3:: Increase sensory aspect of balance (CATSIB score was 50 at initial eval) Goal Progress: Goal Met Goal 4:: Be able to complete smooth pursuit in standing both horizontal and vertical X 1 min Goal Progress: Goal Met Goal 5:: Be able to walk back to the treatment rooms with walking, talking and turning his head without veering or feeling dizzy Goal Progress: Progressing Plan Plan: DC PT D/C Information Discharge Comments: DC PT to indep HEP d/c sentence: If there are questions or concerns regarding this patient's physical therapy, please feel free to call me at [phone]. Thank you for the referral of this patient. Sincerely, Veronica Staton, MPT Balance/Gait/Functional tests Balance/Special Test Scores Functional Gait Assessment Score: 12 % Disability: 60.0000 CATSIB Score (Max score 120 seconds): 50 Dizziness Score: 32 Improvement % Improvement: 80
== END 2023-03-01 19:00 | disposition home or self-care (01) ==
LOC: PT 17:00
PROVIDERS: PCP Family Medicine; Referring Provider Family Medicine; Visit Provider Family Medicine
DX: R42 Dizziness and giddiness (principal)
CPT/HCPCS: 97110; 97162; 97750

== ENCOUNTER → 2023-05-19 | Outpatient (CLI) | payer OTHER, SELFPAY ==
[2023-05-19 11:17] LABS: Absolute Lymphocyte Count 0.89 X10^3/uL (0.83-4.51); Absolute Neutrophil Count 3.1 X10^3/uL (2.0-7.7); Basophil# 0.04 X10^3/uL; Basophil% 0.9 % (0-1); Eosinophil# 0.06 X10^3/uL; Eosinophils% 1.3 % (0-5); Hematocrit 46.5 % (40-54); Hemoglobin 15.5 g/dL (13.0-16.5); Lymphocyte # 0.89 X10^3/ul (0.83-4.51); Lymphocyte % 19.8 % (19-41); Mean Corp Hgb Conc 33.3 g/dL (32-36); Mean Corpuscular Hgb 31.8 pg (27.0-32.0); Mean Corpuscular Volume 95.3 fL (80-94); Mean Platelet Vol. 10.1 fl (6.2-12.0); Monocyte# 0.39 X10^3/uL; Monocyte% 8.7 % (0-10); NRBC Flagged by Analyzer 0 % (0-5); Neutrophil # 3.09 X10^3/uL (2.7-7.7); Neutrophil % 68.9 % (47-70); Platelet Count 223 K/mm3 (150-450); RBC Distribution Width CV 12.3 % (11.6-14.6); RBC Distribution Width SD 42.7 fl (35.1-43.9); Red Blood Count 4.88 M/mm3 (4.6-6.2); White Blood Count 4.5 K/mm3 (4.4-11.0)
[2023-05-19 11:38] LABS: Vitamin B12 537 pg/mL (211-911); Vitamin D,25 Hydroxy 26.3 ng/mL
[2023-05-19 11:44] LABS: ALB/GLOB Ratio 1.1 RATIO (0.9-2.4); AST(SGOT) 13 U/L (15-37); Alanine Aminotransfer ALT/SGPT 31 U/L (16-61); Alkaline Phosphatase 82 U/L (45-117); Anion Gap 2 (5-15); BUN 19 mg/dL (7-18); BUN/Creat Ratio 16.4 RATIO (10-20); Chloride 109 mmol/L (98-107); Creatinine, Serum 1.16 mg/dL (0.70-1.30); EST Glomerular Filtration Rate 69 mL/min (>60); Est Glom Filt Rate - Afr Amer 84 mL/min (>60); Globulin 3.7 g/dL (2.2-4.2); Glucose 102 mg/dL (74-106); Potassium 4.1 mmol/L (3.5-5.1); Protein, Total 7.7 g/dL (6.4-8.2); Sodium Level 139 mmol/L (136-145); Thyroid Stim Hormone (TSH) 1.07 uIU/mL (0.358-3.74)
== END | disposition home or self-care (01) ==
LOC: LAB 10:31
PROVIDERS: PCP Family Medicine; Referring Provider Family Medicine; Visit Provider Family Medicine
DX: R53.83 Other fatigue (principal); R06.00 Dyspnea, unspecified
CPT/HCPCS: 36415; 80053; 82306; 82607; 84403; 84443; 85025

== ENCOUNTER → 2023-06-15 | Outpatient (CLI) | payer OTHER, SELFPAY | END | disposition home or self-care (01) | LOC: SL 13:31 | PROVIDERS: PCP Family Medicine; Visit Provider Family Medicine | DX: Z00.00 Encounter for general adult medical examination without abnormal findings (principal) ==

== ENCOUNTER → 2023-06-27 | Outpatient (CLI) | payer OTHER, SELFPAY ==
--- NOTE | 2023-06-27 06:34 | MRI_ITS ---
STUDY: MRI BRAIN WITH AND WITHOUT CONTRAST (ATTENTION INTERNAL AUDITORY CANALS - I.A.C.''s) REASON FOR EXAM: Male, 57 years old. TECHNIQUE: Standardized multiplanar fat and water weighted pulse sequences were obtained. ml of 25 cc clariscan contrast material was administered intravenously for the contrast portion of the examination. COMPARISON: None. FINDINGS: Internal auditory canal findings: A 1.09 intensely enhancing soft tissue nodule and the origin of the left 7th and 8th cranial nerves at the cerebellar pontine angle slightly extending into the opening of the internal auditory canal is consistent with a vestibular schwannoma. The nodule does not infiltrate into the bony or brain parenchymal structures in the surrounding regions. No edema is seen in the underlying brain parenchyma. The right 7th and 8th cranial nerves of the IAC are normal. Normal bilateral temporal bones. Normal bilateral internal auditory canals. Normal bilateral cochlea, vestibules and semicircular canals. No mastoid air cell opacification is present. No cerebellar pontine angle mass or cyst is seen. There is no demonstrated lesions of the cavernous sinus. No nodularity or abnormal enhancement is seen in the 7th or 8th cranial nerves within IACs. No demonstrated Mondini''s malformation. BRAIN FINDINGS: There is asymmetry of the ventircles consistent with an anatomic variant. Normal white matter tracts of the supratentorial brain. There is no evidence for recent intracranial ischemia or other cause of cytotoxic edema on diffusion weighted imaging (DWI). Normal T2* images of the brain without demonstrated susceptibility artifact. There is no demonstrated hemosiderin stain. There are no demyelinating plagues of the supratentorial brain, brainstem or cerebellum. There are no findings suspicious for multiple sclerosis (MS). No hydrocephalus or midline shift is present. There are no visualized ring-enhancing lesions of the brain parenchyma or abnormal thickening or enhancement of the meninges or dura. Normal bilateral basal ganglia. Normal thalami. Normal flow voids within the major intracranial circulation suggesting patency by spin echo criteria. Normal venous enhancement. There is no enhancing intra-axial or extra-axial abnormality. There is no extra-axial fluid accumulation. Normal sella turcica, pituitary gland, infundibular stalk, optic chiasm and hypothalamus. Normal tectal plate and pineal gland. Normal midbrain, clifford and medulla. Normal cerebellum. Normal basal cisterns. No demonstrated orbital abnormality, within the constraints of a routine brain study. Normal visualized paranasal sinuses. Normal calvarium and skull base. Normal visualized soft tissue structures. Normal visualized upper cervical spine. MRI/Brain W/WO Contrast IMPRESSION: 1. IAC = A 1.09 intensely enhancing soft tissue nodule and the origin of the left 7th and 8th cranial nerves at the cerebellar pontine angle slightly extending into the opening of the internal auditory canal is consistent with a vestibular schwannoma. The nodule does not infiltrate into the bony or brain parenchymal structures in the surrounding regions. No edema is seen in the underlying brain parenchyma. The right 7th and 8th cranial nerves of the IAC are normal. 2. Unremarkable enhanced MRI of the brain. Electronically Signed: Sage Mendez MD at 10:44 EDT ,
[2023-06-27] MEDS: DiphenhydrAMINE 25 MG Capsule 50 MG PO (08:01)
--- NOTE | 2023-06-30 14:43 | NURSING ---
MAURISIO Pitts spoke with patient regarding possible allergy testing pt could have done for contrast reaction. Pt's breakthrough reaction to Gadolinium contrast was a softball sized rash on his abdomen and 2 quarter sized hives on his chin. During reaction pt given PO Benadryl and sent home. MAURISIO Pitts reached out to pharmacy team to figure out future possible reactions or how to prevent breakthrough reactions in the future. Pharmacy's suggestion was to have allergy testing done by the patient to determine if a type of Gadolinium contrast would be better than another. MAURISIO Pitts updated pt with this information. Pt understanding of suggestion.
== END | disposition home or self-care (01) ==
LOC: MRI 06:29
PROVIDERS: PCP Family Medicine
DX: D36.10 Benign neoplasm of peripheral nerves and autonomic nervous system, unspecified (principal)
CPT/HCPCS: 70553; A9575

== ENCOUNTER → 2023-09-04 | Outpatient (CLI) | payer OTHER, SELFPAY ==
--- NOTE | 2023-09-04 14:01 | RAD_ITS ---
INDICATION: pain EXAMINATION/TECHNIQUE: X-RAY - RIGHT XR Ankle Min 3 Views 4 VIEWS COMPARISON: No relevant prior comparison study available FINDINGS: SOFT TISSUES: No soft tissue swelling or gas. No radiopaque foreign body. BONES/JOINTS: No acute fracture or subluxation.. Posterior calcaneal spur. Preservation of the joint space.. No sclerotic or destructive changes observed. RAD/Ankle min 3 Views IMPRESSION: No demonstrated acute osseous changes. Electronically Signed: Gomez Hernandez MD at 11:12 EDT ,
== END | disposition home or self-care (01) ==
PROVIDERS: PCP Family Medicine; Referring Provider Orthopaedic Surgery Sports Medicine; Visit Provider Orthopaedic Surgery Sports Medicine
DX: M25.571 Pain in right ankle and joints of right foot (principal)
CPT/HCPCS: 73610

== ENCOUNTER → 2023-12-01 | Outpatient (CLI) | payer OTHER, SELFPAY ==
--- OUTSIDE RECORDS SUMMARY | 2023-12-01 17:22 | XMS RPT_ITS | CCD ---
Author Organization [facility] CliniSyfl Care Team Providers Care Latrine Cleaner Name Role Phone DarellTasha rivera Unavailable Unavailable Melva, Heidi A Unavailable Unavailable Alan Carlisle Unavailable Unavailable Ivania DO, Herminio A Unavailable Melva DO, Heidi A Primary Care Provider Ivania DO, Herminio A Unavailable Melva DO, Heidi A Primary Care Provider [place] DO, Herminio A Unavailable [phone] Melva DO, Heidi A Primary Care Provider SHAUNNA FLORES Attending Unavailable SELF, SELF Referring Unavailable MELVA, HEIDI A Primary Care Unavailable SELF, SELF Referring Unavailable KORIN BAIRD Attending Unavailable MELVA, HEIDI A Primary Care Unavailable MELVA, HEIDI A Referring Unavailable LAMBERTO STOCKTON Attending Unavailable MELVA, HEIDI A Primary Care Unavailable MELVA, HEIDI A Referring Unavailable KORIN BAIRD Attending Unavailable MELVA, HEIDI A Primary Care Unavailable Allergies Allergy Classification Reported Allergen(s) Allergy Type Date of Onset Reaction(s) Facility Cat Hair Extract (1 source) Cat Hair Extract Drug Allergy 04-01-[address] [facility] Penicillins (antibiotic) (1 source) Penicillins Drug Allergy 04-01-[address] [facility] Pollen (1 source) Bee pollen Substance Allergy 04-01-[address] [facility] (1 source) bee pollen Allergy to substance (finding) [facility] Work Phone: (1 source) house dust Allergy to substance (finding) [facility] Work Phone: (3 sources) Penicillins; Translations: [Penicillins] Allergy to drug (finding) 04-01-2020 [facility] Work Phone: (1 source) Animal dander - Cats Allergy to substance (finding) [facility] Work Phone: (2 sources) Bee pollen Drug Allergy 04-01-[address] [facility] (5 sources) Cat Hair Extract Drug Allergy 04-01-[address] [facility] (2 sources) MITE EXTRACT Drug Allergy 04-01-[address] [facility] (6 sources) Gadolinium Derivatives Propensity to adverse reactions to drug 04-06-[address] [facility] Work Phone: (3 sources) Bee pollen Propensity to adverse reactions to drug 04-01-[address] [facility] (4 sources) House dust mite Propensity to adverse reactions to drug 04-01-[address] [facility] (3 sources) Penicillins Propensity to adverse reactions to drug 04-01-[address] [facility] Medications Current Medications Medication Drug Class(es) Dates Sig (Normalized) Sig (Original) [id number] 200 actuat albuterol 0.09 mg/actuat metered dose inhaler (6 sources) beta2-Adrenergic Agonist take 1 puff(s) by inhalation every six hours as needed for wheezing Albuterol 108 (90 Base) MCG/ACT Aero Soln inhaler Inhale 1 puff every 6 hours as needed for Wheezing. Active BEE POLLEN PO (6 sources) take 1 tablet by mouth once daily BEE POLLEN PO Take 1 tablet by mouth daily. Joebees Active take 1 tablet by mouth once darnell y BEE POLLEN PO Take 1 tablet by mouth daily. Joebees 0 Active fexofenadine hydrochloride 180 mg oral tablet (2 sources) Histamine-1 Receptor Antagonist take 1 tablet by mouth once daily Fexofenadine (Jesusita Allergy) 180 MG tablet Take 1 tablet by mouth daily. Active lisinopril 10 mg oral tablet (5 sources) Angiotensin Converting Enzyme Inhibitor Start: 03-08-202 3 take 1 tablet by mouth once daily Lisinopril 10 MG tablet Take 1 tablet by mouth daily. 04/13/2022 Active Completed/Discontinued Medications Medication Drug Class(es) Dates Sig (Normalized) Sig (Original) cetirizine hydrochloride 10 mg oral tablet (3 sources) Histamine-1 Receptor Antagonist End: 07-14-2023 take 1 tablet by mouth once daily Cetirizine 10 MG tablet Take 1 tablet by mouth daily. 07/14/2023 Discontinued (Therapy completed) dexamethasone 2 mg oral tablet (6 sources) Corticosteroid Start: 06-03-2020 End: 07-14-2023 dexAMETHasone 2 MG tablet 1 tab PO 2x a day for 5 days. 1 tab daily for 5 days. 1 tab every other day for 5 days. Then stop. 18 tablet 06/03/2020 07/14/2023 Discontinued (Therapy completed) diphenhydrAMINE hydrochloride 50 mg oral capsule (12 sources) Histamine-1 Receptor Antagonist Start: 06-21-2023 End: 07-13-2023 diphenhydrAMINE 50 MG capsule Indications: Left-sided acoustic neuroma , H/O allergy to radiographic contrast media Take 1 cap an hour prior to MRI scan 1 capsule 06/21/2023 07/13/2023 Discontinued (Therapy completed) Start: 07-05-2022 diphenhydrAMIN E 50 MG capsule Indications: Left-sided acoustic neuroma , H/O allergy to radiographic contrast media Take 1 cap an hour prior to MRI scan 1 capsule 0 07/05/2022 Active Start: 05-25-2021 diphenhydrAMIN E 50 MG capsule Indications: Left-sided acoustic neuroma , H/O allergy to radiographic contrast media Take 1 cap an hour prior to MRI scan 1 capsule 0 05/25/2021 Active diphenhydrAMINE HCl, Sleep, 25 MG Tab Dispersible Take 1 tablet by mouth. Active loratadine 10 mg oral tablet (6 sources) End: 07-14-2023 take 1 tablet by mouth once daily as needed loratadine 10 MG tablet Take 1 tablet by mouth daily as needed. 07/14/2023 Discontinued (Therapy completed) omeprazole 20 mg delayed release oral capsule (6 sources) Proton Pump Inhibitor Start: 06-03-2020 End: 07-14-2023 take 1 capsule by mouth once daily omeprazole [address] capsule Take 1 capsule by mouth daily for 15 days. 15 capsule 06/03/2020 07/14/2023 Discontinued (Therapy completed) predniSONE 50 mg oral tablet (6 sources) Start: 06-21-2023 End: 07-14-2023 predniSONE 50 MG tablet Indications: Left-sided acoustic neuroma , H/O allergy to radiographic contrast media Take 1 tab 13hrs prior to MRI then take 1 tab 7hrs prior to MRI , then take 1 tab one hour prior to MRI 3 tablet 06/21/2023 07/14/2023 Discontinued (Therapy completed) Start: 07-05-2022 predniSONE 50 MG tablet Indications: Left-sided acoustic neuroma , H/O allergy to radiographic contrast media Take 1 tab 13hrs prior to MRI then take 1 tab 7hrs prior to MRI , then take 1 tab one hour prior to MRI 3 tablet 0 07/05/2022 Active Start: 05-25-2021 predniSONE 50 MG tablet Indications: Left-sided acoustic neuroma , H/O allergy to radiographic contrast media Take 1 tab 13hrs prior to MRI then take 1 tab 7hrs prior to MRI , then take 1 tab one hour prior to MRI 3 tablet 0 05/25/2021 Active Problems Active Problems Problem Classification Problem Date Documented Date Episodic/Chronic Other and unspecified benign neoplasm (11 sources) Acoustic neuroma of left vestibular nerve; Translations: [Benign neoplasm of cranial nerves] Onset: 06-02-2020 Chronic Other and unspecified benign neoplasm (2 sources) Benign neoplasm of cranial nerves; Translations: [Benign neoplasm of cranial nerves] Onset: 07-13-2023 Chronic Other and unspecified benign neoplasm (1 source) Schwannoma; Translations: [Benign neoplasm of peripheral nerves and autonomic nervous system, unspecified] Episodic Other ear and sense organ disorders (2 sources) Sensorineural hearing loss, bilateral; Translations: [Sensorineural hearing loss, bilateral] Onset: 02-24-2023 Chronic Other ear and sense organ disorders (1 source) Asymmetrical sensorineural hearing loss; Translations: [Asymmetric SNHL (sensorineural hearing loss)] Episodic Other ear and sense organ disorders (1 source) Impaired auditory discrimination; Translations: [Other abnormal auditory perceptions, left ear] 02-24-2023 Episodic Other nervous system disorders (1 source) Lesion of brain; Translations: [Disorder of brain, unspecified] Chronic Other nutritional; endocrine; and metabolic disorders (6 sources) Obese class I; Translations: [Obesity, unspecified] Onset: 04-02-2020 04-02-2020 Chronic Past or Other Problems Problem Classification Problem Date Documented Date Episodic/Chronic Conditions associated with dizziness or vertigo (3 sources) Vertigo; Translations: [Dizziness and giddiness] Onset: 02-24-2023 02-24-2023 Episodic Headache; including migraine (7 sources) Headache; Translations: [Headache] Onset: 04-01-2020 Resolved: 04-01-2020 04-01-2020 Episodic Mood disorders (6 sources) Mood disorders Onset: 06-17-2021 Resolved: 07-13-2023 06-17-2021 Other and unspecified benign neoplasm (7 sources) Acoustic neuroma; Translations: [Benign neoplasm of cranial nerves] Onset: 04-01-2020 Resolved: 04-01-2020 04-01-2020 Chronic Other ear and sense organ disorders (8 sources) Sensorineural hearing loss, bilateral; Translations: [Sensorineural hearing loss, bilateral] Onset: 04-01-2020 Resolved: 04-01-2020 04-01-2020 Chronic Other ear and sense organ disorders (6 sources) Asymmetrical sensorineural hearing loss; Translations: [Sensorineural hearing loss, bilateral] Onset: 04-01-2020 Resolved: 04-01-2020 04-01-2020 Chronic Other ear and sense organ disorders (7 sources) Tinnitus; Translations: [Tinnitus, unspecified ear] Onset: 04-01-2020 Resolved: 04-01-2020 04-01-2020 Episodic Other ear and sense organ disorders (2 sources) Other abnormal auditory perceptions, left ear; Translations: [Other abnormal auditory perceptions, left ear] Onset: 02-24-2023 Episodic Other lower respiratory disease (7 sources) H/O: asthma; Translations: [Personal history of other diseases of the respiratory system] Onset: 04-01-2020 Resolved: 04-01-2020 04-01-2020 Episodic Other lower respiratory disease (7 sources) H/O: respiratory disease; Translations: [Personal history of other diseases of the respiratory system] Onset: 04-01-2020 Resolved: 04-01-2020 04-01-2020 Episodic Other nervous system disorders (7 sources) Impairment of balance; Translations: [Other abnormalities of gait and mobility] Onset: 04-01-2020 Resolved: 04-01-2020 04-01-2020 Episodic Other nutritional; endocrine; and metabolic disorders (7 sources) H/O: metabolic disorder; Translations: [Personal history of other endocrine, nutritional and metabolic disease] Onset: 04-01-2020 Resolved: 04-01-2020 04-01-2020 Episodic Unclassified (1 source) Evaluation finding; Translations: [Blood tests prior to treatment or procedure] NEGATED: Highlighted row has not occurred!Residual codes; unclassified (4 sources) Disease Episodic Results Test Name Value Interpretation Reference Range Facil ity AUDIOGRAMon 02-24-[address] [facility] Radiology Study observation (narrative) [facility] Established Visit (Otolaryng ology)on 03-10-2020 Established Visit (Otolaryngology) Diagnoses/Problems Acoustic neuroma (225.1) (D33.3) Imbalance (781.2) (R26.89) Bilateral sensorineural hearing loss (389.18) (H90.3) Tinnitus (388.30) (H93.19) Headache (784.0) (R51.9) Orders Physical Therapy - Vestibular Referral Evaluation and Treatment Evaluate AND Treat Status: Hold For - Scheduling,Retrospecti ve By Protocol Authorization Requested for: [id number] ENG - Electronystagmography; Status:Active; Requested for:[id number]; IO Vestibular Evoked Myogenic Potential; Status:Active - Perform Order; Requested for:[id number]; Provider Impressions 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 I had an extensive discussion about microsurgery versus stereotactic radiosurgery. We will obtain some balance function testing before we proceed with stereotactic radiosurgery. I discussed two intervention options, namely microsurgery and stereotactic radiosurgery. In terms of SRS, i discussed that we have a team and discussed the details related to the procedure and that she will need further evaluation by the radiation oncologist (Dr. Cox) I discussed excellent tumor control with modern dosing plan with Gamma Knife system (95-97% range). Cranial nerve toxicities are minimal with facial palsy rates <2-5% and trigeminal nerve dysfunction rates of <5%. With a small-medium size tumor, significant issues with increased intracranial pressure, hydrocephalus or chronic headaches are rare. There is a rare but theoretical risk of malignant degeneration which can be years after SRS treatment. We discussed rates of hearing preservation and discussed various factors which influence them. They are aware that hearing decline is accelerated by use of stereotactic radiosurgery at 10 years posttreatment there is a minority of patients who have serviceable hearing. After informed decision making process, the patient elected to proceed with SRS. Chief Complaint known left sided vestibular schwannoma History of Present D[age]ui23 year old male with a known left sided retrocochlear lesion (predominant left CPA and proximal IAC) that has been routinely surveyed since 2018. He has moderately to moderately severe left SNHL but is otherwise asymptomatic. MRI has shown interval growth, measuring 1.5x1.3 cm this year (compared to 1.3 x 1.1 cm in 2019, and 8 mm in 2018 based on notes). He has been followed by Dr. Amaya and referred here for consideration of stereotactic radiosurgery. He endorses occasional dizziness, tinnitus, and left sided eye dryness. His main symptom actually is dizziness and he still feels quite bothered by it. This is described as overall instability especially with rapid movements. He does not endorse any significant true vertiginous symptom at rest. Review of Systems A comprehensive 10-point review of systems was obtained including constitutional, neurological, HEENT, pulmonary, cardiovascular, genito-urinary, and other pertinent systems and was negative except as noted in the HPI. *Active Problems Acoustic neuroma (225.1) (D33.3) Blood tests prior to treatment or procedure (V72.63) (Z01.812) Headache (784.0) (R51.9) Imbalance (781.2) (R26.89) Tinnitus (388.30) (H93.19) Past Medical History History of asthma (V12.69) [...] Recorded By: Rowena Mendez; 04/04/2017 1:55:21 PM Physical Exam Constitutional Vitals as documented above General Appearance: normal development, appropriate nutrition, body habitus, and grooming. 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 He has House-Brackman grade 1 function bilaterally Eyes Ocular mobility: intact motility with normal primary gaze alignment Ears External ear exam shows no signs of scar, masses or lesions bilaterally. Otoscopic Exam: Right EAC patent without disease, TM intact without perforation, retraction, infection, or effusion, appropriate mobility. Left EAC patent without disease, TM intact without perforation, retraction, infection, or effusion, appropriate mobility. Assessment of hearing: Nose, Mouth and Throat Nasal inspection:deferred due to COVID Inspection of lips, teeth, gums: deferred due to COVID Examination of oropharynx: deferred due to COVID Pharyngeal veronica: deferred due to COVID Mirror exam of larynx: deferred Mirror exam of nasopharynx: deferred Neck Neck exam: no masses, normal appearance and symmetry, normal tracheal position, no crepitus Thyroid exam: no enlargement, tenderness or mass palpated Respiratory Inspection of chest: symmetric, normal expansion and effort Cardiovascular Observation or peripheral vascular system: no obvious swelling or edema Lymphatic Palpation of lymph nodes in neck: no significant adenopathy palpated Neurologic Orientation to time, place, person appropriate Mood and affect: appropriate CN assessment II-XII shows no deficits bilaterally Results/Data I reviewed his latest audiogram which shows right-sided mild to moderately severe sensorineural hearing loss with speech discrimination score of 96% on the left side he has moderately severe, severe sensorineural hearing loss with speech discrimination score of 88% he has normal type a tympanograms bilaterally I reviewed his MRI his latest MRI shows a left-sided predominantly a CPA and IAC lesion which measures about 1.5 x 1.3 cm in dimensions. It is abutting the brainstem without any significant compressive symptoms either on the brainstem or the middle cerebellar peduncle. Laterally there is a considerable amount of fundal fluid cap. The inner ear structures appear normal. 'Scores and Scales' Signatures Electronically signed by : Dave Hodge MD; Mar 11 2020 11:30AM EST (Author) Normal [employer] Established Visit (Otolaryng ology)on 02-18-2020 Established Visit (Otolaryngology) Diagnoses/Problems Acoustic neuroma (225.1) (D33.3) Imbalance (781.2) (R26.89) Tinnitus (388.30) (H93.19) Chief Complaint Mr. Vogel is a 54 year old male presenting in clinic for a follow up. Patient seen year ago with a small 1 cm acoustic tumor. He comes in today with minimal symptoms. Physical exam is unchanged MRI shows increase in size of acoustic tumor, measuring 1.5 cm x 1.3 cm compared to 1.3 cm x 1.1 cm in 2019, and 8mm in 2018. Impression long discussion patient- I recommend considering Gamma knife surgery with my colleague Plan follow-up with Dr. Hodge to consider gamma knife Active Problems Acoustic neuroma (225.1) (D33.3) Blood tests prior to treatment or procedure (V72.63) (Z01.812) Headache (784.0) (R51.9) Imbalance (781.2) (R26.89) Tinnitus (388.30) (H93.19) Past Medical History History of asthma (V12.69) [...] Recorded By: Rowena Mendez; 04/04/2017 1:55:21 PM Vitals Vital Signs Recorded: 18Feb2020 02:57PM Height6 ft 4 in Thxmyt634 lb BMI Nzmbvvqpkf35.08 BSA Calculated2.56 Tobacco Useb) No Fall Screeninga) No falls within the last year 'Scores and Scales' Signatures Electronically signed by : Angel Amaya MD; Feb 18 2020 3:35PM EST (Author) Normal [employer] Vital Signs Date Time Vital Sign Value Performing Clinician Damon cam 07-13-2023 14:34-0400 Body height 193 cm Korin Baird MD, PhD Work Phone: [facility] 07-13-2023 14:34-0400 Body mass index (BMI) [Ratio] 35.06 kg/m2 Korin Baird MD, PhD Work Phone: [facility] 07-13-2023 14:34-0400 Body weight 130.64 kg Korin Baird MD, PhD Work Phone: [facility] 07-13-2023 12:18-0400 Body mass index (BMI) [Ratio] 34.89 kg/m2 Basilia Debora PA-C Work Phone: [facility] 07-13-2023 12:18-0400 Body temperature 97.2 [degF] Basilia Debora PA-C Work Phone: [facility] 07-13-2023 12:18-0400 Body weight 130 kg Basilia Debora PA-C Work Phone: [facility] 07-13-2023 12:18-0400 Diastolic blood pressure 84 mm[Hg] Basilia Debora PA-C Work Phone: [facility] 07-13-2023 12:18-0400 Heart rate 68 /min Basilia Debora PA-C Work Phone: [facility] 07-13-2023 12:18-0400 Respiratory rate 16 /min Basilia Debora PA-C Work Phone: [facility] 07-13-2023 12:18-0400 SaO2% (BldA) [Mass fraction] 96 % Basiliapastora Lovette PA-C Work Phone: [facility] 07-13-2023 12:18-0400 Systolic blood pressure 155 mm[Hg] Basilia Cazares PA-C Work Phone: [facility] 02-24-2023 14:32-0500 Body height 193 cm Korin Baird MD, PhD Work Phone: [facility] 02-24-2023 14:32-0500 Body mass index (BMI) [Ratio] 33.47 kg/m2 Korin Baird MD, PhD Work Phone: [facility] 02-24-2023 14:32-0500 Body weight 124.74 kg Korin Baird MD, PhD Work Phone: [facility] 02-24-2023 14:32-0500 Respiratory rate 15 /min Korin Baird MD, PhD Work Phone: [facility] 07-08-2022 14:25-0400 Body mass index (BMI) [Ratio] 34.2 kg/m2 Lamberto Stockton MD Work Phone: [facility] 07-08-2022 14:25-0400 Body temperature 98.6 [degF] Lamberto Stockton MD Work Phone: [facility] 07-08-2022 14:25-0400 Body weight 127.46 kg Lamberto Stockton MD Work Phone: [facility] 07-08-2022 14:25-0400 Diastolic blood pressure 84 mm[Hg] Lamberto Stockton MD Work Phone: [facility] 07-08-2022 14:25-0400 Heart rate 67 /min Lamberto Stockton MD Work Phone: [facility] 07-08-2022 14:25-0400 Respiratory rate 18 /min Lamberto Stockton MD Work Phone: [facility] 07-08-2022 14:25-0400 SaO2% (BldA) [Mass fraction] 96 % Lamberto Stockton MD Work Phone: [facility] 07-08-2022 14:25-0400 Systolic blood pressure 142 mm[Hg] Lamberto Stockton MD Work Phone: [facility] 06-17-2021 14:55-0400 Body mass index (BMI) [Ratio] 33.73 kg/m2 Violetta Travis S[employer]KE ROOM OPERATOR-[employer] Work Phone: [facility] 06-17-2021 14:55-0400 Body temperature 98.01 [degF] Violetta Travis SMOKE ROOM OPERATOR-[employer] Work Phone: [facility] 06-17-2021 14:55-0400 Body weight 125.69 kg Violetta Shawburn SMOKE ROOM OPERATOR-[employer] Work Phone: [facility] 06-17-2021 14:55-0400 Diastolic blood pressure 88 mm[Hg] Violetta Travis SMOKE ROOM OPERATOR-[employer] Work Phone: [facility] 06-17-2021 14:55-0400 Heart rate 78 /min Violetta Shawburn SMOKE ROOM OPERATOR-[employer] Work Phone: [facility] 06-17-2021 14:55-0400 Respiratory rate 18 /min Violetta Shawburn SMOKE ROOM OPERATOR-[employer] Work Phone: [facility] 06-17-2021 14:55-0400 SaO2% (BldA) [Mass fraction] 96 % Violetta Travis SMOKE ROOM OPERATOR-[employer] Work Phone: [facility] 06-17-2021 14:55-0400 Systolic blood pressure 147 mm[Hg] Violetta Travis SMOKE ROOM OPERATOR-[employer] Work Phone: [facility] 03-10-2020 17:29-0500 BMI (Body Mass Index) 33.9 kg/m2 Tasha Villegas [facility] Work Phone: 03-10-2020 17:29-0500 Body Temperature 96.5 [degF] Tasha Marshallk [facility] Work Phone: 03-10-2020 17:29-0500 Body weight 126.33 kg Tasha Bielak [facility] Work Phone: 03-10-2020 17:29-0500 BSA (Body Surface Area) 2.55 m2 Tasha Marshallk [facility] Work Phone: 03-10-2020 17:29-0500 Height 193.04 cm Tasha Marshallk [facility] Work Phone: Encounters Encounter Date Encounter Type Care Provider Facility Start: 07-13-2023 End: 07-13-2023 Office outpatient visit 25 minutes Korin Baird MD, PhD Work Phone: [facility] [place] Comment on above: Left acoustic neurom a (Primary Dx) Start: 07-13-2023 ambulatory HEIDI Wilkins y:ALAN Start: 07-13-2023 End: 07-13-2023 Office outpatient visit 15 minutes Lamberto Stockton MD Work Phone: [facility] Comment on above: Left-sided acoustic neuroma (Primary Dx) Start: 07-13-2023 ambulatory HEIDI Wilkins y:ALAN Start: 02-24-2023 End: 02-24-2023 Office outpatient new 45 minutes Korin Baird MD, PhD Work Phone: [facility] [place] Comment on above: Left acoustic neurom a (Primary Dx) Start: 02-24-2023 End: 02-24-2023 Patient encounter procedure Shaunna Strieb AuD Work Phone: [facility] [place] Comment on above: Sensorineural hearin g loss, bilateral (Primary Dx); Impaired auditory discrimination, left; Left acoustic neuroma; Vertigo Start: 02-24-2023 ambulatory SELF SELF Facility:[facility] Start: 07-08-2022 End: 07-08-2022 Office outpatient new 45 minutes Basilia Imelda Debora PAC Work Phone: [facility] Comment on above: Schwannoma (Primary Dx) Start: 06-17-2021 End: 06-17-2021 Office outpatient visit 15 minutes Violetta Travis SMOKE ROOM OPERATOR-[employer] Work Phone: [facility] Comment on above: Left acoustic neurom a (Primary Dx); Lesion of brain Start: 03-10-2020 Patient encounter procedure Tasha Villegas XD-Ernpdjbtgcjglf-Sqeyg shanae Work Phone: Start: 02-18-2020 Patient encounter procedure Tasha Villegas JZ-Jsiusqhycoryit-Algip shanae Work Phone: Start: 03-05-2019 Patient encounter procedure Tasha Villegas UP-Urkluuayeweyna-Igrgw shanae Work Phone: Procedures Date Procedure Procedure Detail Performing Clinician Start: 02-24-2023 AUDIOGRAM Shaunna Strieb AuD Work Phone: Start: 03-10-2020 Follow-up visit Start: 03-10-2020 Electronystagmography with vertical electrodes Tasha Villegas Start: 03-10-2020 IO Vestibular Evoked Myogenic Potential Tasha Villegas History of Knee Surgery Karime Villegas Plan of Treatment Date Care Activity Detail Author Start: 07-13-2023 End: 2024 MR Internal auditory canal WO and W contrast IV MRI INTERNAL AUDITORY CANAL WITH AND WITHOUT CONTRAST Imaging Routine Left-sided acoustic neuroma Expected: 07/13/2023, Expires: [address] [facility] Comment on above: Expected: 07/13/2023 , Expires: 2024 Start: 07-13-2023 End: 07-13-2023 Patient encounter procedure [facility] Department of Neurological Surgery Start: 07-09-2023 End: 07-09-2023 MR Internal auditory canal WO and W contrast IV MRI INTERNAL AUDITORY CANAL WITH AND WITHOUT CONTRAST Imaging Routine Schwannoma Expected: 07/09/2023 (Approximate), Expires: 07/09/[address] [facility] Comment on above: Expected: 07/09/2023 (Approximate), Expires: 07/09/2023 Start: 10-07-2022 COVID-19 VACCINE () COVID-19 VACCINE () [facility] Start: 06-23-2022 End: 06-23-2022 Patient encounter procedure 06/23/2022 Office Visit Neurologic Surgery Violetta Travis, SMOKE ROOM OPERATOR-DELIVERY CREW MEMBER [address] [place] [address] [facility] Department of Neurological Surgery Start: 06-17-2021 End: 06-17-2022 MR Brain WO and W contrast IV MRI BRAIN WITH AND WITHOUT CONTRAST Imaging Routine Lesion of brain Expected: 06/17/2021, Expires: 06/17/[address] [facility] Comment on above: Expected: 06/17/2021 , Expires: 06/17/2022 Start: 07-11-2017 Prostate specific antigen measurement PROSTATE CANCER SCREENING DISCUSSION [facility] Start: 07-11-2017 Zoster vaccine hzv live for subcutaneous use ZOSTER (SHINGLES) VACCINE (1 of 2) [facility] Start: 07-11-2012 Colonoscopy COLORECTAL CAN CER SCREENING DISCUSSION [facility] Start: 07-11-2012 Screening for malignant neoplasm of colon COLORECTAL CANCER SCREENING DISCUSSION [facility] Start: 2007 Fasting lipid profile LIPID SCREENIN G [facility] Start: 2007 Lipid panel LIPID SCREENING [facility] Start: 07-11-1986 Hepatitis B vaccination HEP B VACCINE (1 of 3 - 19+ 3-dose series) [facility] Start: 07-11-1986 Third diphtheria, tetanus and acellular pertussis (DTaP) vaccination TDAP (ADULT) [facility] Start: 07-11-1986 Zoster vaccine hzv live for subcutaneous use ZOSTER (SHINGLES) VACCINE (1 of 2) [facility] Start: 07-11-1985 Tetanus vaccination TETANUS [facility] Start: 07-11-1982 HIV screening HIV SCREENING DISCUSSION [facility] Start: 07-11-1973 PNEUMOCOCCAL VACCINE SERIES (1 - PCV) PNEUMOCOCCAL VACCINE SERIES (1 - PCV) [facility] Start: 07-11-1972 COVID-19 VACCINE (#1) COVID-19 VACCI NE (#1) [facility] Start: 01-11-1968 COVID-19 VACCINE (#1) COVID-19 VACCI NE (#1) [facility] Start: 1967 Hepatitis B vaccination HEP B VACCINE (1 of 3 - 3-dose series) [facility] Start: 1965 Hepatitis C antibody , confirmatory test HEPATITIS C VIRUS SCREENING [facility] Start: 1967 Hepatitis C screening HEPATITI S C VIRUS SCREENING [facility] Start: 1965 Tetanus vaccination TETANUS [facility] Binocular microscopy separate dx procedure MT BINOCULAR MICROSCOPY SEPARATE DX PROCEDURE MT Charge Routine Left acoustic neuroma Ordered: 07/13/[address] [facility] Comment on above: Ordered: 07/13/2023 MG-Otolaryngolo gy-Bob tlake Work Phone: NEGATED: Highlighted row has been ruled out! Planned Goals not documented OW-Sdcsylxpdtulza-Typ tlake Work Phone: Payers Date Payer Category Payer Private Health Insurance [employer] [id number] 2022-Present [address] [place] [id number] 2022 Private Health Insurance [id number] 2018 Unknown [facility] ACC[facility] [id number] 2018-Present [address] [address] [place] [address] [id number] 1967 Unknown [id number] 1967 Unknown [id number] 1967 Unknown [id number] 1965 Unknown [id number] Social History Date Type Detail Facility Start: 04-02-2020 End: 02-24-2023 Tobacco smoking status NHIS Never smoked tobacco [facility] Start: 04-02-2020 End: 02-24-2023 Tobacco use and exposure Former smokeless tobacco user [facility] Start: 12-10-2020 End: 07-13-2023 Alcohol intake Current drinker of alcohol (finding) [facility] Start: 04-02-2020 History SDOH Alcohol Comment socially [facility] Start: 1965 Sex Assigned At Not on file [facility] Start: 02-24-2023 End: 07-13-2023 History of Social function [facility] Start: 02-24-2023 End: 07-13-2023 Tobacco use panel [facility] Adolescent depressio n screening assessment [address] [facility] NEGATED: Highlighted row - - KS-Qkeqlzxkplpedd-N estlake Work Phone: Functional Status Date Assessment Result Facility NEGATED: Highlighted row Functional performance Functional status health issues are not documented Disease ST-Noicfbumpgdvaa-S estlaDexrex Gear Work Phone: Mental Status Date Assessment Result Facility NEGATED: Highlighted row Cognitive function [Interpretation] Cognitive status health issues are not documented Disease AS-Oxwjtlirbcecin-O scottie Work Phone: Clinical Notes 06-17-2021 to 07-13-2023 Divine Mccann - 07/13/2023 2:45 PM Hosea Baird MD, PhD - 07/13/2023 2:45 PM MIRACLETBasilia Cazares PA-C - 07/13/2023 12:00 PM EDTPatient Geena Baird MD, PhD - 02/24/2023 2:30 PM EST Note Date & Type Note Facility 07-13-2023 History of Presen t illness Narrative Patient has verified full name and . Images from the original note were not included. DIVISION OF OTOLOGY, NEUROTOLOGY AND CRANIAL BASE SURGERY ESTABLISHED PATIENT CONSULTATION Date: 07/13/2023 Patient: GORGE VOGEL Attending Physician: Korin Baird MD PhD CC: Chief Complaint Patient presents with Follow-up Hearing Loss Hearing loss in left ear INTERVAL HPI: No new issues. Had repeat MRI done. HPI: Mr. Gorge Vogel is a 58 y.o. male referred by Heidi Frye DO to re-establish care for vestibular schwannoma. H/o small left vestibular schwannoma s/p GKS in 05/2020. Brother also has unilateral vestibular schwannoma. Previously followed with Dr. De La Torre who did GKS (12.5 Gy in 05/2020). Met with Dr. Stockton in 07/2022. The past medical history, past surgical history, family history, social history, medications, allergies, and review of systems were reviewed today and are documented in IHIS &/or a scanned document completed by the patient (or guardian). PAST MEDICAL AND SURGICAL HISTORY Past Medical History: Diagnosis Date Acoustic neuroma 04/01/2020 Asthma Asymmetrical sensorineural hearing loss 04/01/2020 Headache 04/01/2020 Hearing loss History of asthma 04/01/2020 History of respiratory system disease 04/01/2020 Impairment of balance 04/01/2020 Sensorineural hearing loss, bilateral 04/01/2020 Tinnitus 04/01/2020 Past Surgical History: Procedure Laterality Date KNEE SURGERY Left 1985, 1986 FAMILY HISTORY Family History Problem Relation Age of Onset Hypertension Mother Diabetes Mother Hypertension Father Diabetes Father Thyroid Cancer Sister Cancer- Other Sister bladder cancer Other - Specify Brother acoustic neuroma No known problems Brother SOCIAL HISTORY Social History Socioeconomic History Marital status: Spouse name: Not on file Number of children: Not on file Years of education: Not on file Highest education level: Not on file Occupational History Not on file Tobacco Use Smoking status: Never Smokeless tobacco: Former Vaping Use Vaping status: Never Used Substance and Sexual Activity Alcohol use: Yes Comment: socially Drug use: Never Sexual activity: Not on file Other Topics Concern Not on file Social History Narrative Not on file Social Determinants of Health Financial Resource Strain: Not on file Food Insecurity: Not on file Transportation Needs: Not on file Physical Activity: Not on file Stress: Not on file Social Connections: Not on file Intimate Partner Violence: Not on file Housing Stability: Not on file MEDICATIONS Current Outpatient Medications Medication Sig Dispense Refill Albuterol 108 (90 Base) MCG/ACT Aero Soln inhaler Inhale 1 puff every 6 hours as needed for Wheezing. Fexofenadine (Jesusita Allergy) 180 MG tablet Take 1 tablet by mouth daily. Lisinopril 10 MG tablet Take 1 tablet by mouth daily. BEE POLLEN PO Take 1 tablet by mouth daily. Matthewees (Patient not taking: Reported on 02/24/2023) Cetirizine 10 MG tablet Take 1 tablet by mouth daily. (Patient not taking: Reported on 07/13/2023) dexAMETHasone 2 MG tablet 1 tab PO 2x a day for 5 days. 1 tab daily for 5 days. 1 tab every other day for 5 days. Then stop. (Patient not taking: Reported on 02/24/2023) 18 tablet 0 diphenhydrAMINE 50 MG capsule Take 1 cap an hour prior to MRI scan (Patient not taking: Reported on 07/13/2023) 1 capsule 0 diphenhydrAMINE HCl, Sleep, 25 MG Tab Dispersible Take 1 tablet by mouth. (Patient not taking: Reported on 02/24/2023) loratadine 10 MG tablet Take 1 tablet by mouth daily as needed. (Patient not taking: Reported on 02/24/2023) omeprazole [address] capsule Take 1 capsule by mouth daily for 15 days. (Patient not taking: Reported on 07/13/2023) 15 capsule 0 predniSONE 50 MG tablet Take 1 tab 13hrs prior to MRI then take 1 tab 7hrs prior to MRI , then take 1 tab one hour prior to MRI (Patient not taking: Reported on 07/13/2023) 3 tablet 0 No current facility-administered medications for this visit. ALLERGIES Allergies Allergen Reactions Bee Pollen Itchy Eyes Cat Hair Extract Itchy Eyes Dust Mite Extract Itchy Eyes Gadolinium Derivatives Hives Pt had noted 3 hives on chest the evening after recent MRI scan Penicillins Can't recall Physical Exam: Ht 1.93 m (6' 4 ) Wt 130.6 kg (288 lb) BMI 35.06 kg/m Smoking Status Never General: alert, awake, fully oriented, appropriate in conversation, able to provide adequate history. Speech is clear with good vocabulary. Neuro: Attention and concentration are normal, and recent and remote memory are intact. HEENT: - Nose: no deformity, no drainage - Mouth: oral mucosa without lesion or masses, tonsils 0+, uvula midline - Facial Strength: Facial motility symmetric and full bilaterally Left- House-Brackman Grade 1/6 Right- House-Brackman Grade 1/6 - Neck: soft, supple, no masses CV: no peripheral edema Pulm: normal wob, no stridor MSK: moves all extremities Psych: normal mood/affect Skin: dry without rash Ear Periauricular Skin: Left - No lesions Right - No lesions Pinna: Left - External ear intact and fully developed Right - External ear intact and fully developed External canal: Left - Canal is patent with intact skin Right - Canal is patent with intact skin Tympanic Membranes: Left - Clear and mobile Right - Clear and mobile Middle Ears: Left - Aerated, no effusion, no masses Right - Aerated, no effusion, no masses Due to the patient's complaints, it was medically necessary to perform otologic examination using binocular microscopy. Procedure Note: Preoperative diagnosis: Need for Otologic Binocular Microscopy Postoperative diagnosis: Same Procedure: Bilateral Otologic Binocular Microscopy Surgeon: Oli Anesthesia: None Indications and Consent: The patient is a 58 y.o. male who presents for bilateral otologic binocular microscopy. Prior to the procedure, the benefits and risks of otologic microscopy were discussed with the patient (and/or the consenting guardian), including but not limited to bleeding, infection, injury to skin of the ear canal, and the need for further procedure(s). The patient (guardian) understood and wished to proceed. Procedure/Findings: The right external auditory canal was visualized using the operating microscope. Findings are as documented in the physical exam portion of this note. A similar procedure was then performed on the left ear, and findings are documented in the physical exam portion of this note. EBL: None Complications: None Medical Decision Making: Data Reviewed: Audiogram: 1 Radiology: 2, MRI Independent Interpretation of Tests: Audiogram: MRI Brain: 07/2023: stable to slightly smaller left CPA lesion 06/2022: 10mm x 10 mm left internal auditory canal/CPA lesion, stable in size Surgical/Management Risk Factors: n/a Impression: Left vestibular schwannoma Left sensorineural hearing loss Plan: The patient has an left internal auditory canal and cerebellopontine angle mass, which is likely a vestibular schwannoma, s/p GKS in 2020. At this time tumor is stable in size. We discussed the options, risks and benefits of observation, radiation, and surgery. Will continue to observe with serial MRIs and audiogram - MRI internal auditory canal in 1 year Korin Baird MD PhD Substance Abuse Technician Otology, Neurotology and Cranial Base Surgery Department of Otolaryngology [facility] documented in this encounter [facility] 07-13-2023 History of Presen t illness Narrative [facility] Dr. Lamberto Stockton MD Substance Abuse Technician, Department of Neurosurgery [address] [place] [address] ESTABLISHED PATIENT VISIT NOTES SUMMARY OF CARE DIAGNOSIS: Left- sided vestibular schwannoma SURGERIES RELATED TO CARE: None. LAST CLINIC VISIT/ PLAN OF CARE: 07.08.22 (Bryan) Gorge Vogel is a 55 y.o. male that presents to [facility] for follow up of left VS s/p Gamma Knife (06/03/20). He is doing well overall. Continues to endure frequent headaches. Denies hearing changes. Denies new neurological symptoms. MRI brain completed at an [facility] shows decrease of left vestibular mass presumed schwannoma. Imaging reviewed w/ patient. From neurosurgery standpoint, there is no indication for surgery at this time. Will continue surveillance with interval imaging. Will refer to Neurology for evaluation and management of headaches. Patient advised to call with new or worsening neurological symptoms. Patient is in agreement with the plan. Plan: 1) OTOLOGY - YIN OLI 2) AUDIOGRAM 3) MRI IAC SURGICAL PATHOLOGY RESULTS: None. IMAGING RECENT IMAGING: Results Test Name Value Interpretation Reference Range Facility Brain W/WO Contrast on 06-27-2023 Brain W/WO Contrast [facility] Imaging Services [address] [place] [address] Brain W/WO Contrast MR#: [id number] Acct: [id number] Name: GORGE VOGEL Rep #: [id number] : 1965 M 57 From: Sage venegas MD PCP: Dr. Heidi Frye, DO Status: REG CLI Study: Brain W/WO Contrast Date of Exam: 06/27/23 Exam# [id number] Ordering Dr: LAMBERTO STOCKTON ADDENDUM by Dr. Sage Mendez MD on 06/28/23 at 0955 ADDENDUM [id number] Prior MRIs of the brain and internal auditory canal have been of limited to the system for review and comparison with the current examination. The most recent comparison is dated July 06, 2022. Comparison is also made to June 14, 2021 No interval changes have occurred in the size or morphology of the left cerebellar pontine angle/proximal IAC mass when accounting for slight differences in measuring technique and position. Revised 06/28/23 0955 Date cc: Dr. Heidi Frye DO; LAMBERTO STOCKTON * Signed ADDENDUM by Dr. Sage Mendez MD on 06/28/23 at 0955 MRI/Brain W/WO Contrast IMPRESSION: No interval change in known left CPA/IAC benign appearing mass/vestibular schwannoma. Electronically Signed: Sage Mendez MD at 9:55 EDT Reading Location ID and State: [facility] / [place] , Service support , 06/28/23 1002 Date cc: Dr. Heidi Frye DO; LAMBERTO STOCKTON * Signed [id number] STUDY: MRI BRAIN WITH AND WITHOUT CONTRAST (ATTENTION INTERNAL AUDITORY CANALS - I.A.C.''s) REASON FOR EXAM: Male, 57 years old. TECHNIQUE: Standardized multiplanar fat and water weighted pulse sequences were obtained. ml of 25 cc clariscan contrast material was administered intravenously for the contrast portion of the examination. COMPARISON: None. ___ FINDINGS: Internal auditory canal findings: A 1.09 intensely enhancing soft tissue nodule and the origin of the left 7th and 8th cranial nerves at the cerebellar pontine angle slightly extending into the opening of the internal auditory canal is consistent with a vestibular schwannoma. The nodule does not infiltrate into the bony or brain parenchymal structures in the surrounding regions. No edema is seen in the underlying brain parenchyma. The right 7th and 8th cranial nerves of the IAC are normal. Normal bilateral temporal bones. Normal bilateral internal auditory canals. Normal bilateral cochlea, vestibules and semicircular canals. No mastoid air cell opacification is present. No cerebellar pontine angle mass or cyst is seen. There is no demonstrated lesions of the cavernous sinus. No nodularity or abnormal enhancement is seen in the 7th or 8th cranial nerves within IACs. No demonstrated Mondini''s malformation. BRAIN FINDINGS: There is asymmetry of the ventircles consistent with an anatomic variant. Normal white matter tracts of the supratentorial brain. There is no evidence for recent intracranial ischemia or other cause of cytotoxic edema on diffusion weighted imaging (DWI). Normal T2* images of the brain without demonstrated susceptibility artifact. There is no demonstrated hemosiderin stain. There are no demyelinating plagues of the supratentorial brain, brainstem or cerebellum. There are no findings suspicious for multiple sclerosis (MS). No hydrocephalus or midline shift is present. There are no visualized ring-enhancing lesions of the brain parenchyma or abnormal thickening or enhancement of the meninges or dura. Normal bilateral basal ganglia. Normal thalami. Normal flow voids within the major intracranial circulation suggesting patency by spin echo criteria. Normal venous enhancement. There is no enhancing intra-axial or extra-axial abnormality. There is no extra-axial fluid accumulation. Normal sella turcica, pituitary gland, infundibular stalk, optic chiasm and hypothalamus. Normal tectal plate and pineal gland. Normal midbrain, clifford and medulla. Normal cerebellum. Normal basal cisterns. No demonstrated orbital abnormality, within the constraints of a routine brain study. Normal visualized paranasal sinuses. Normal calvarium and skull base. Normal visualized soft tissue structures. Normal visualized upper cervical spine. ___ MRI/Brain W/WO Contrast IMPRESSION: 1. IAC = A 1.09 intensely enhancing soft tissue nodule and the origin of the left 7th and 8th cranial nerves at the cerebellar pontine angle slightly extending into the opening of the internal auditory canal is consistent with a vestibular schwannoma. The nodule does not infiltrate into (more content not included)... LABS CBC No results found for: WBC , WBCCOUNT , WBCFETAL , HGB , HCT , PLATELET , MCV EDIF No results found for: RBCDISTRIBU , GRNLOCYT , LYMPHOCYT , MONOCYTELEC , EOSINOPHILS , BASOPHILS , GRNLOCTYABS , LYMPHOCYTABS , MONOSABSOLU , EOSINOPHLABS , BASOPHILSABS , PLATELET , MNPLATVOLME , MPV No results found for: SODIUM , POTASSIUM , CHLORIDE , CO2 , BUN , CREATSERUM , GLUCOSE No results found for: PTT No results found for: ACTH , CORTISOL , GRWTHHORM , PROLACTIN , IGF1 , FSH , FOLSTIMHME , LH , LHMANENTER , ADH , ESTROGENTOTA , MAGNESIUM No results found for: TESTOSTTTL , TESTOSTTOT , TESTOSTERONE . CURRENT CLINIC VISIT EVALUATION, FINDINGS AND PLAN OF CARE ASSESSMENT AND PHYSICAL EXAM: Mr Gorge Vogel is a 58 yo male w/ hx of left side schwannoma s/p GK (2020) whom presents to clinic for routine follow up and imaging review. Pt reports feeling well overall. Perhaps slight change in hearing though not formally tested. BP 155/84 (BP Location: Right arm, BP Position: Sitting) Pulse 68 Temp 97.2 F (36.2 C) (Temporal) Resp 16 Wt 130 kg (286 lb 9.6 oz) SpO2 96% BMI 34.89 kg/m Smoking Status Never A&Ox3. Interactive, speech fluent PERRL, EOMI Sensation intact bilateral Hearing intact to finger rub bilaterally, decreased on left Face symmetric Motor strength 5/5 throughout Normal tandem gait IMPRESSION AND PLAN OF CARE: Mr Gorge Vogel is a 58 yo male w/ hx of left side schwannoma s/p GK (2020) whom presented to clinic for routine follow up and imaging review. Pt comes to clinic today doing well overall with no major complaints. He is clinically well appearing, neurologically intact on exam w/ exception baseline hearing loss. MRI demonstrates overall stable size and appearance of left IAC lesion s/p radiation and in comparison to several years prior. - MRI IAC w/ and w/o 1 yr - RTC 1 yr - ENT follow up today/repeat audio The above imaging, assessment and plan were reviewed and discussed with Dr. Stockton. documented in this encounter [facility] 07-13-2023 Instructions Kait Pelayo RN - 07/13/2023 12:00 PM EDT Images from the original note were not included. Welcome to the [facility] Your Neurosurgery Team: Dr. Finn Stockton - Neurosurgeon Basilia Pelayo - Primary nurse. There will be additional staff to assist in your care. Contact Information: - after hours or holidays, ask for neurosurgeon credit professional. It is important that you have a primary care physician (PCP). If you do not have a PCP, establish care with one in your area or at [facility] - Call [phone], to make an appointment. Please bring a medication list with you at every visit. Please allow at least 48 hours for Prescription Refill transactions. Please allow 10 business days for completion of FMLA and other disability paperwork. Lemon (Burt)- is a communication tool used through the internet to communicate NON-URGENT medical information with your [facility] doctors. This portal is NOT manned over the weekends or after hours. You may ask questions, receive results, and get notification of appointments. Sign up must be done in person. We can assist you while you are here, to get a password that can be changed when after you log in the first time. IMPORTANT REMINDER: My Chart is only for NON-urgent information. If you have urgent needs, please call [phone]. There is an Certify braden for smart phones/tablets. Search Certify at your braden store. Follow the prompts to set up the Burt for the [facility] then select [facility] format. Through this BRADEN, you will be able to look at results, send messages and much more. Additionally, you can send pictures to providers. Go to message, tap attachments, and upload picture. Call 911/ go to the closest, local Emergency Department for any unrelieved, intolerable headaches, vision changes, unrelieved nausea and/ or vomiting (especially if associated with a headache), unrelieved, intolerable dizziness/ vertigo, balance/ coordination difficulty, falls, fevers > 100.0 F, nuchal rigidity (described to the patient as neck pain with the inability to move the neck), light sensitivity, or stroke/ stroke- like symptoms- numbness, tingling, weakness or difficulty moving one side of the body, facial drooping, slurred speech, or difficulty speaking. We would like to hear from you because your opinion matters! We know your time is valuable, but we would greatly appreciate it if you would please complete your Patient Satisfaction Survey and let us know how we are doing. Your feedback will help us to make positive changes to improve clinical outcomes for you and future patients alike. For any questions or concerns, or to share your recent clinic experience please call our Patient Experience Advocate, Estefania Gipson at [phone]. documented in this encounter [facility] 02-24-2023 History of Presen t illness Narrative Images from the original note were not included. DIVISION OF OTOLOGY, NEUROTOLOGY AND CRANIAL BASE SURGERY NEW PATIENT CONSULTATION Date: 02/24/2023 Patient: GORGE VOGEL Attending Physician: Korin Baird MD PhD CC: Chief Complaint Patient presents with New Patient Cc: new pt here to establish care, hx of acoustic neuroma Informant: HPI: Mr. Gorge Vogel is a 57 y.o. male referred by Self, Self to re-establish care for vestibular schwannoma. H/o small left vestibular schwannoma s/p GKS in 05/2020. Brother also has unilateral vestibular schwannoma. Previously followed with Dr. De La Torre who did GKS (12.5 Gy in 05/2020). Met with Dr. Stockton in 07/2022. The past medical history, past surgical history, family history, social history, medications, allergies, and review of systems were reviewed today and are documented in IHIS &/or a scanned document completed by the patient (or guardian). PAST MEDICAL AND SURGICAL HISTORY Past Medical History: Diagnosis Date Acoustic neuroma 04/01/2020 Asthma Asymmetrical sensorineural hearing loss 04/01/2020 Headache 04/01/2020 History of asthma 04/01/2020 History of respiratory system disease 04/01/2020 Impairment of balance 04/01/2020 Sensorineural hearing loss, bilateral 04/01/2020 Tinnitus 04/01/2020 Past Surgical History: Procedure Laterality Date KNEE SURGERY Left 1985, 1986 FAMILY HISTORY Family History Problem Relation Age of Onset Hypertension Mother Diabetes Mother Hypertension Father Diabetes Father Thyroid Cancer Sister Cancer- Other Sister bladder cancer Other - Specify Brother acoustic neuroma No known problems Brother SOCIAL HISTORY Social History Socioeconomic History Marital status: Spouse name: Not on file Number of children: Not on file Years of education: Not on file Highest education level: Not on file Occupational History Not on file Tobacco Use Smoking status: Never Smokeless tobacco: Former Substance and Sexual Activity Alcohol use: Yes Comment: socially Drug use: Never Sexual activity: Not on file Other Topics Concern Not on file Social History Narrative Not on file Social Determinants of Health Financial Resource Strain: Not on file Food Insecurity: Not on file Transportation Needs: Not on file Physical Activity: Not on file Stress: Not on file Social Connections: Not on file Intimate Partner Violence: Not on file Housing Stability: Not on file MEDICATIONS Current Outpatient Medications Medication Sig Dispense Refill Albuterol 108 (90 Base) MCG/ACT Aero Soln inhaler Inhale 1 puff every 6 hours as needed for Wheezing. BEE POLLEN PO Take 1 tablet by mouth daily. Joebees dexAMETHasone 2 MG tablet 1 tab PO 2x a day for 5 days. 1 tab daily for 5 days. 1 tab every other day for 5 days. Then stop. 18 tablet 0 diphenhydrAMINE 50 MG capsule Take 1 cap an hour prior to MRI scan 1 capsule 0 diphenhydrAMINE HCl, Sleep, 25 MG Tab Dispersible Take 1 tablet by mouth. Lisinopril 10 MG tablet Take 1 tablet by mouth daily. loratadine 10 MG tablet Take 1 tablet by mouth daily as needed. omeprazole [address] capsule Take 1 capsule by mouth daily for 15 days. 15 capsule 0 predniSONE 50 MG tablet Take 1 tab 13hrs prior to MRI then take 1 tab 7hrs prior to MRI , then take 1 tab one hour prior to MRI 3 tablet 0 No current facility-administered medications for this visit. ALLERGIES Allergies Allergen Reactions Bee Pollen Itchy Eyes Cat Hair Extract Itchy Eyes Dust Mite Extract Itchy Eyes Gadolinium Derivatives Hives Pt had noted 3 hives on chest the evening after recent MRI scan Penicillins Can't recall Physical Exam: Smoking Status Never General: alert, awake, fully oriented, appropriate in conversation, able to provide adequate history. Speech is clear with good vocabulary. Neuro: Attention and concentration are normal, and recent and remote memory are intact. HEENT: - Nose: no deformity, no drainage - Mouth: oral mucosa without lesion or masses, tonsils 0+, uvula midline - Facial Strength: Facial motility symmetric and full bilaterally Left- House-Brackman Grade 1/6 Right- House-Brackman Grade 1/6 - Neck: soft, supple, no masses CV: no peripheral edema Pulm: normal wob, no stridor MSK: moves all extremities Psych: normal mood/affect Skin: dry without rash Ear Periauricular Skin: Left - No lesions Right - No lesions Pinna: Left - External ear intact and fully developed Right - External ear intact and fully developed External canal: Left - Canal is patent with intact skin Right - Canal is patent with intact skin Tympanic Membranes: Left - Clear and mobile Right - Clear and mobile Middle Ears: Left - Aerated, no effusion, no masses Right - Aerated, no effusion, no masses Due to the patient's complaints, it was medically necessary to perform otologic examination using binocular microscopy. Procedure Note: Preoperative diagnosis: Need for Otologic Binocular Microscopy Postoperative diagnosis: Same Procedure: Bilateral Otologic Binocular Microscopy Surgeon: Oli Anesthesia: None Indications and Consent: The patient is a 57 y.o. male who presents for bilateral otologic binocular microscopy. Prior to the procedure, the benefits and risks of otologic microscopy were discussed with the patient (and/or the consenting guardian), including but not limited to bleeding, infection, injury to skin of the ear canal, and the need for further procedure(s). The patient (guardian) understood and wished to proceed. Procedure/Findings: The right external auditory canal was visualized using the operating microscope. Findings are as documented in the physical exam portion of this note. A similar procedure was then performed on the left ear, and findings are documented in the physical exam portion of this note. EBL: None Complications: None Medical Decision Making: Data Reviewed: Audiogram: 1 Radiology: 2, MRI Independent Interpretation of Tests: Audiogram: MRI Brain: 06/2022: 10mm x 10 mm left internal auditory canal/CPA lesion, stable in size Surgical/Management Risk Factors: n/a Impression: Left vestibular schwannoma Left sensorineural hearing loss Plan: The patient has an left internal auditory canal and cerebellopontine angle mass, which is likely a vestibular schwannoma, s/p GKS in 2020. At this time tumor is stable in size. We discussed the options, risks and benefits of observation, radiation, and surgery. Will continue to observe with serial MRIs and audiogram - MRI internal auditory canal in 1 year from last scan (will be 07/2023), ordered by Dr. Stockton - Follow up after MRI, same day as his appt with neurosurgery in July Korin Baird MD PhD Substance Abuse Technician Otology, Neurotology and Cranial Base Surgery Department of Otolaryngology [facility] History of Presen t illness Narrative Images from the original note were not included. Audiometric Evaluation Hx: S/P gamma knife treatments for left vestibular schwannoma; significant left and minimal right hearing loss; occasional vertigo ( slow spin ); bilateral tinnitus. BiCROS user. Dx: Left: Slight sloping to severe SNHL with poor WRS (60-64%, decreased from 03/10/20 when it was 88%), and hearing threshold decreases (10 dB for .75-1kHz, 15 dB at 4 KHz, and 25 dB at 8 kHz) since 03/10/20. Right: Normal hearing sloping to a moderately severe SNHL with essentially stable WRS (88%, 76% on 03/10/20) with HF hearing decreases (10-20 dB for 4-8 kHz) since 03/10/20. Benefit is expected from cont'd BiCROS use. ICD-10-CM 1. Sensorineural hearing loss, bilateral H90.3 2. Impaired auditory discrimination, left H93.292 3. Left acoustic neuroma D33.3 4. Vertigo R42 Rx: 1. F/U with Dr. Baird. 2. Further testing as needed, including re: occasional vertigo. 3. Cont'd BiCROS use; follow-up with dispensing professional as needed. 4. Re-eval as ordered and if hearing or ear-related symptoms worsen. See test data below and under the IHIS Procedures and Media tabs. Noah Sow Informaticist Department of Otolaryngology-Head and Neck Surgery [address] [place] [address], [address] [place] [address] documented in this encounter [facility] 07-08-2022 History of Presen t illness Narrative Images from the original note were not included. [facility] Violetta Travis CNP for Dr. Solis De La Torre MD, FAANS Board Certified in Neurological House PainterSubstance Abuse Technician, Department of Neurological Surgery Associate Final Rail Cutter, Skull Base Surgery Clinical Fellowship Co-Director (Neurosurgery), [facility] and Research Fellowship [facility] [place] [address] Clinic: Admin: ESTABLISHED PATIENT VISIT NOTES I. SUMMARY OF CARE A. DIAGNOSIS: 1. Left- sided vestibular schwannoma B. PROCEDURES RELATED TO CARE: There have been no procedures or surgeries performed by The Sk[facility] Surgery Service at this time. C. ORIGINAL CLINIC PRESENTATION: (04/02/2020) Gorge Vogel is a 54 y.o. male that presents to [facility] for consultation related to a history of asymmetrical sensorineural hearing loss, tinnitus and impairment of balance that was found to be caused by a left- sided acoustic neuroma that has been under surveillance since 2018. He first was dx with tumor after workup for hearing loss. He currently has word recognition on the left of about 60% per his audiogram from last year that he brought to clinic with him. Right ear normal. He notes continued tinnitus. Sometimes dizzy or off balance. He continues to work and perform ADLs. Interestingly his brother also has a unilateral VS and he underwent treatment. No other family members with known VS, brother did not have other tumors or reach diagnosis of NF2. D. LAST CLINIC VISIT IMPRESSION/PLAN OF CARE: (12/10/2020) I called Mr. Vogel and we discussed how he is doing and his current MRI results. He feels well overall, he notes some headaches at times (he is managing them conservatively) and he notes some tenderness with his CPAP over the left mastoid and ear region. No changes in his facial function, he is otherwise well. I reviewed the outside MRI with him - this is a good quality MRI for being from outside our system, it shows a small increase in the size of the lesion consistent with pseudo progression, with decreased central enhancement. I discussed that in general at this timeline, this is exactly what I would expect the imaging to look like after 4-6 months status post Gamma Knife for the lesion, and expect it to shrink down and scar down in the next several years. Plan repeat MRI (outside [place]) in 6 months and if that looks stable, go to yearly. He expressed and understanding of hte plan and will contract us for a headache neurology referral if the headaches ever get back enough he wants to consider medical therapy Solis De La Torre MD, FAANS Substance Abuse Technician, Neurological Surgery [facility] II. MEDICAL/ SURGICAL HISTORY Past Medical History: Diagnosis Date Acoustic neuroma 04/01/2020 Asthma Asymmetrical sensorineural hearing loss 04/01/2020 Headache 04/01/2020 History of asthma 04/01/2020 History of respiratory system disease 04/01/2020 Impairment of balance 04/01/2020 Sensorineural hearing loss, bilateral 04/01/2020 Tinnitus 04/01/2020 Past Surgical History: Procedure Laterality Date KNEE SURGERY Left 1985, 1986 Social History Socioeconomic History Marital status: Tobacco Use Smoking status: Never Smokeless tobacco: Former Substance and Sexual Activity Alcohol use: Yes Comment: socially Drug use: Never Family History Problem Relation Age of Onset Hypertension Mother Diabetes Mother Hypertension Father Diabetes Father Thyroid Cancer Sister Cancer- Other Sister bladder cancer Other - Specify Brother acoustic neuroma No known problems Brother III. ALLERGIES/ MEDICATIONS Allergies Allergen Reactions Bee Pollen Itchy Eyes Cat Hair Extract Itchy Eyes Dust Mite Extract Itchy Eyes Gadolinium Derivatives Hives Pt had noted 3 hives on chest the evening after recent MRI scan Penicillins Can't recall Current Outpatient Medications Medication Sig Dispense Refill Albuterol 108 (90 Base) MCG/ACT Aero Soln inhaler Inhale 1 puff every 6 hours as needed for Wheezing. BEE POLLEN PO Take 1 tablet by mouth daily. Joebees dexAMETHasone 2 MG tablet 1 tab PO 2x a day for 5 days. 1 tab daily for 5 days. 1 tab every other day for 5 days. Then stop. 18 tablet 0 diphenhydrAMINE 50 MG capsule Take 1 cap an hour prior to MRI scan 1 capsule 0 diphenhydrAMINE HCl, Sleep, 25 MG Tab Dispersible Take 1 tablet by mouth. Lisinopril 10 MG tablet Take 1 tablet by mouth daily. loratadine 10 MG tablet Take 1 tablet by mouth daily as needed. predniSONE 50 MG tablet Take 1 tab 13hrs prior to MRI then take 1 tab 7hrs prior to MRI , then take 1 tab one hour prior to MRI 3 tablet 0 omeprazole [address] capsule Take 1 capsule by mouth daily for 15 days. 15 capsule 0 No current facility-administered medications for this visit. IV. IMAGING A. OUTSIDE MRI BRAIN WITH AND WITHOUT CONTRAST ([facility] 06/14/2021 NOTE: The patient's imaging study was done at an outside facility and was reviewed in clinic. V. LABS (LAST ORDERED BY [facility] [place] There have been no recent labs or pathology studies ordered by Neurosurgery, since the patient's last clinic visit. . CURRENT CLINIC VISIT EVALUATION, FINDINGS AND PLAN OF CARE A. REVIEW OF SYSTEMS: Review of Systems HENT: Positive for hearing loss. Negative for lump/mass, mouth sores and nosebleeds. Musculoskeletal: Negative for gait problem. Neurological: Positive for headaches. Negative for dizziness, extremity weakness, gait problem, light-headedness, numbness, seizures and speech difficulty. All other systems reviewed and are negative. B. ASSESSMENT AND PHYSICAL EXAM: BP 142/84 (BP Location: Right arm, BP Position: Sitting) Pulse 67 Temp 98.6 F (37 C) (Oral) Resp 18 Wt 127.5 kg (281 lb) SpO2 96% BMI 34.20 kg/m Smoking Status Never GENERAL: Sitting upright in exam chair, NAD HEENT: Head - Normocephalic and atraumatic. EYES: Sclerae are anicteric. RESPIRATORY: Symmetric chest rise. No audible wheezes. No intercostal retractions. No use of accessory muscles. CARDIAC: No peripheral edema noted. SKIN: warm, dry, intact. Nontenting. No ecchymosis. No rash. 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 II: Visual acuity intact, no diplopia III, IV, : PERRLA, EOM intact, no nystagmus V: Corneal reflexes intact, facial sensation intact bilaterally to touch VII: Face symmetrical with good strength bilaterally VIII: R hearing intact; L + hearing loss IX: Palate movement equal bilaterally XI: Shoulder shrug equal bilaterally XII: Tongue midline Speech: Clear Neck: full ROM Gait: steady Cerebellar: no tremor or dysmetria Sensory: intact symmetrically to light touch in bilateral upper and lower extremities PSYCH: calm, cooperative. Insight and judgement appropriate. C. IMPRESSION AND PLAN OF CARE: Gorge Vogel is a 55 y.o. male that presents to [facility] for follow up of left VS s/p Gamma Knife (06/03/20). He is doing well overall. Continues to endure frequent headaches. Denies hearing changes. Denies new neurological symptoms. [facility] brain completed at an [facility] shows decrease of left vestibular mass presumed schwannoma. Imaging reviewed w/ patient. From neurosurgery standpoint, there is no indication for surgery at this time. Will continue surveillance with interval imaging. Will refer to Neurology for evaluation and management of headaches. Patient advised to call with new or worsening neurological symptoms. Patient is in agreement with the plan. Plan: 1) OTOLOGY - YIN OLI 2) AUDIOGRAM 3) MRI IAC Lamberto Stockton MD Department of Neurosurgery Skull Base, Minimally Invasive, and Neurosurgical Oncology documented in this encounter [facility] 07-08-2022 Instructions Lamberto Stockton MD - 07/08/2022 2:00 PM EDT [facility] SKULL [facility] & [facility]IMALLY [facility]AS[facility], NEUROSURGICAL ONCOLOGY CLINIC Dr. Lamberto Stockton MD Substance Abuse Technician, Department of Neurosurgery [address] [place] [address] Neurosurgical Office Information Regular business hours are Monday through Monday 8:30 a.m. to 4:30 p.m. Please call [phone] for information related to clinic appointments, scheduled tests, or for general office related questions or concerns. Messages for the physicians, nurses and other team members can be taken at this phone number and will be routed as appropriate. Emergency assistance is available after hours by calling the office at [phone] and the answering service will reach your doctor or the physician credit professional. Please allow at least 48 hours for Prescription Refill transactions. Please allow 10 business days for completion of FMLA and other disability paperwork. We will mail the completed paperwork to you or you may pick it up at the desk. It is your responsibility to return the FMLA or disability paperwork to your employer. Additional Resources/Team Members Available to You: Social Workers - YANDY Randle and/or MAKEDA Orellana are able to assist you with community resources, counseling, or transportation. You may contact Arabella at [phone] or Radha at [phone]. Please let the staff know if you are in need of these services and we would be happy to contact a nursing home social worker for you. Financial Services - Rufus Benites and Lorena Kaplan are our financial counselors who can assist you at your appointments or call them at [phone]. Pastoral Care - Career Placement Services Counselor Melinda Hyatt is able to assist your with your spiritual needs. If you wish to see the bank operations officer please let your oncology team know to arrange this. Integrative Medicine Therapy -these are complementary therapies used in addition to your cancer treatment to assist with anxiety, pain, nausea, poor sleep, and exhaustion. If you wish this additional therapy please contact [email or web address] to set up an appointment. You may also request this in the same way if you are inpatient or ask your nurse. THERE IS NO COST FOR THIS SERVICE. [facility] - It is conveniently located on the [facility] campus on the [facility] level (CL) of the [facility], next door to [facility] and near [facility]. To learn more about [facility], you can visit it on weekdays from 8 a.m.- 9 p.m. and on weekends from 9 a.m.-6 p.m. [facility]- is a communication tool used through the Internet to communicate NON-urgent medical information with your [facility] doctors. You may ask questions, receive results and get notification of appointments. The results will be released to the [facility] by your doctors and will only be results that do not need additional explanation. If a discussion of the result is important your doctor or nurse will call you. THERE IS AN Certify BRADEN FOR SMART PHONES. USE YOUR BRADEN STORE AND SEARCH Certify, download the braden and follow the prompts to set up the [facility] format. Through this BRADEN, you will be able to look at results, send messages and much more. Additionally, you are able to send pictures to providers. documented in this encounter [facility] 06-17-2021 Instructions ROJELIO Prado - 06/17/2021 3:08 PM EDT [facility] Dr. Solis De La Torre MD - Substance Abuse Technician of Neurosurgery Co- Director Minimally Invasive Surgery Fellowship Violetta Travis - Nurse Practitioner [place] - Primary Clinic Nurse [address] [address] Phone: Fax: Neurosurgical Office Information Regular business hours are Monday through Monday 8:30 a.m. to 4:30 p.m. Please call [phone] for information related to clinic appointments, scheduled tests, or for general office related questions or concerns. Messages for the physicians, nurses and other team members can be taken at this phone number and will be routed as appropriate. Emergency assistance is available after hours by calling the office at [phone] and the answering service will reach your doctor or the physician credit professional. Please allow at least 48 hours for Prescription Refill transactions. Please allow 10 business days for completion of FMLA and other disability paperwork. We will mail the completed paperwork to you or you may pick it up at the desk. It is your responsibility to return the FMLA or disability paperwork to your employer. If you need to mail a CD or paperwork to the office please mail to : NEUROSURGICAL DEPARTMENT [address] [address] documented in this encounter [facility] 06-17-2021 History of Presen t illness Narrative [facility] Violetta Travis CNP for Dr. Solis De La Torre MD, FAANS Board Certified in Neurological House PainterSubstance Abuse Technician, Department of Neurological Surgery Associate Final Rail Cutter, Skull Base Surgery Clinical Fellowship Co-Director (Neurosurgery), [facility] and Research Fellowship [facility] [place] [address] Clinic: Admin: ESTABLISHED PATIENT VISIT NOTES I. SUMMARY OF CARE A. DIAGNOSIS: 1. Left- sided vestibular schwannoma B. PROCEDURES RELATED TO CARE: There have been no procedures or surgeries performed by The [facility] at this time. C. ORIGINAL CLINIC PRESENTATION: (04/02/2020) Gorge Vogel is a 54 y.o. male that presents to [facility] for consultation related to a history of asymmetrical sensorineural hearing loss, tinnitus and impairment of balance that was found to be caused by a left- sided acoustic neuroma that has been under surveillance since 2018. He first was dx with tumor after workup for hearing loss. He currently has word recognition on the left of about 60% per his audiogram from last year that he brought to clinic with him. Right ear normal. He notes continued tinnitus. Sometimes dizzy or off balance. He continues to work and perform ADLs. Interestingly his brother also has a unilateral VS and he underwent treatment. No other family members with known VS, brother did not have other tumors or reach diagnosis of NF2. D. LAST CLINIC VISIT IMPRESSION/PLAN OF CARE: (12/10/2020) I called Mr. Vogel and we discussed how he is doing and his current MRI results. He feels well overall, he notes some headaches at times (he is managing them conservatively) and he notes some tenderness with his CPAP over the left mastoid and ear region. No changes in his facial function, he is otherwise well. I reviewed the outside MRI with him - this is a good quality MRI for being from outside our system, it shows a small increase in the size of the lesion consistent with pseudo progression, with decreased central enhancement. I discussed that in general at this timeline, this is exactly what I would expect the imaging to look like after 4-6 months status post Gamma Knife for the lesion, and expect it to shrink down and scar down in the next several years. Plan repeat MRI (outside [place]) in 6 months and if that looks stable, go to yearly. He expressed and understanding of hte plan and will contract us for a headache neurology referral if the headaches ever get back enough he wants to consider medical therapy Solis De La Torre MD, FAANS Substance Abuse Technician, Neurological Surgery [facility]. MEDICAL/ SURGICAL HISTORY Past Medical History: Diagnosis Date Acoustic neuroma 04/01/2020 Asthma Asymmetrical sensorineural hearing loss 04/01/2020 Headache 04/01/2020 History of asthma 04/01/2020 History of respiratory system disease 04/01/2020 Impairment of balance 04/01/2020 Sensorineural hearing loss, bilateral 04/01/2020 Tinnitus 04/01/2020 Past Surgical History: Procedure Laterality Date KNEE SURGERY Left 1985, 1986 Social History Socioeconomic History Marital status: Tobacco Use Smoking status: Never Smoker Smokeless tobacco: Former User Substance and Sexual Activity Alcohol use: Yes Comment: socially Drug use: Never Family History Problem Relation Age of Onset Hypertension Mother Diabetes Mother Hypertension Father Diabetes Father Thyroid Cancer Sister Cancer- Other Sister bladder cancer Other - Specify Brother acoustic neuroma No known problems Brother III. ALLERGIES/ MEDICATIONS Allergies Allergen Reactions Bee Pollen Itchy Eyes Cat Hair Extract Itchy Eyes Dust Mite Extract Itchy Eyes Gadolinium Derivatives Hives Pt had noted 3 hives on chest the evening after recent MRI scan Penicillins Can't recall Current Outpatient Medications Medication Sig Dispense Refill albuterol (ProAir HFA) 108 (90 Base) MCG/ACT Aero Soln inhaler Inhale 1 puff every 6 hours as needed for Wheezing. BEE POLLEN PO Take 1 tablet by mouth daily. Joebees dexAMETHasone 2 MG tablet 1 tab PO 2x a day for 5 days. 1 tab daily for 5 days. 1 tab every other day for 5 days. Then stop. 18 tablet 0 diphenhydrAMINE 50 MG capsule Take 1 cap an hour prior to MRI scan 1 capsule 0 diphenhydrAMINE HCl, Sleep, (Unisom SleepMelts) 25 MG Tab Dispersible Take 25 mg by mouth. loratadine 10 MG tablet Take 10 mg by mouth daily as needed. omeprazole [address] capsule Take 1 capsule by mouth daily for 15 days. 15 capsule 0 predniSONE 50 MG tablet Take 1 tab 13hrs prior to MRI then take 1 tab 7hrs prior to MRI , then take 1 tab one hour prior to MRI 3 tablet 0 No current facility-administered medications for this visit. IV. IMAGING A. OUTSIDE MRI BRAIN WITH AND WITHOUT CONTRAST ([facility]) 06/14/2021 NOTE: The patient's imaging study was done at an outside facility and was reviewed in clinic. V. LABS (LAST ORDERED BY [facility] There have been no recent labs or pathology studies ordered by Neurosurgery, since the patient's last clinic visit. . CURRENT CLINIC VISIT EVALUATION, FINDINGS AND PLAN OF CARE A. REVIEW OF SYSTEMS: Review of Systems HENT: Positive for hearing loss. Negative for lump/mass, mouth sores and nosebleeds. Musculoskeletal: Negative for gait problem. Neurological: Positive for headaches. Negative for dizziness, extremity weakness, gait problem, light-headedness, numbness, seizures and speech difficulty. All other systems reviewed and are negative. B. ASSESSMENT AND PHYSICAL EXAM: BP 147/88 (BP Position: Sitting) Pulse 78 Temp 98 F (36.7 C) (Oral) Resp 18 Wt 125.7 kg (277 lb 1.6 oz) SpO2 96% BMI 33.73 kg/m Smoking Status Never Smoker GENERAL: Sitting upright in exam chair, NAD HEENT: Head - Normocephalic and atraumatic. EYES: Sclerae are anicteric. RESPIRATORY: Symmetric chest rise. No audible wheezes. No intercostal retractions. No use of accessory muscles. CARDIAC: No peripheral edema noted. SKIN: warm, dry, intact. Nontenting. No ecchymosis. No rash. 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 II: Visual acuity intact, no diplopia III, IV, : PERRLA, EOM intact, no nystagmus V: Corneal reflexes intact, facial sensation intact bilaterally to touch VII: Face symmetrical with good strength bilaterally VIII: R hearing intact; L + hearing loss IX: Palate movement equal bilaterally XI: Shoulder shrug equal bilaterally XII: Tongue midline Speech: Clear Neck: full ROM Gait: steady Cerebellar: no tremor or dysmetria Sensory: intact symmetrically to light touch in bilateral upper and lower extremities PSYCH: calm, cooperative. Insight and judgement appropriate. C. IMPRESSION AND PLAN OF CARE: Gorge Vogel is a 55 y.o. male that presents to [facility] for follow up of left VS s/p Gamma Knife (06/03/20). He is doing well overall. Continues to endure frequent headaches. Denies hearing changes. Denies new neurological symptoms. MRI brain completed at an [facility] shows decrease of left vestibular mass presumed schwannoma. Imaging reviewed w/ patient. From neurosurgery standpoint, there is no indication for surgery at this time. Will continue surveillance with interval imaging. Will refer to Neurology for evaluation and management of headaches. Patient advised to call with new or worsening neurological symptoms. Patient is in agreement with the plan. Plan: RTC in 1 year with [facility]ADEN+ MRI Refer to Neurology This case was discussed with, and the plan of care was developed mutually with Dr. De La Torre. [facility] Diagnosis Left acoustic neuroma- Primary Benign neoplasm of cranial nerves Lesion of brain Other conditions of brain [facility] Schwannoma- Primary Other benign neoplasm of connective and other soft tissue of unspecified site [facility] Diagnosis Left acoustic neuroma- Primary Benign neoplasm of cranial nerves [facility] Diagnosis Sensorineural hearing loss, bilateral- Primary Impaired auditory discrimination, left Left acoustic neuroma Benign neoplasm of cranial nerves Vertigo Dizziness and giddiness [facility] Diagnosis Left acoustic neuroma- Primary Benign neoplasm of cranial nerves [facility] Diagnosis Left-sided acoustic neuroma- Primary [facility] Consultation (Routine) - New Request Specialty Diagnoses / Procedures Referred By Elton t Referred To Contact Diagnoses Left acoustic neuroma Violetta Travis APRN-CNP [address] [place] [address] Referral ID Status Reason Start Date Expiration Date V isits Requested Visits Authorized [id number] New Request 06/17/2021 2022 1 1 * MRI/CAT Scan (Routine) - New Request Specialty Diagnoses / Procedures Referred By Elton t Referred To Contact Diagnoses Lesion of brain Procedures MRI BRAIN WITH AND WITHOUT CONTRAST MT MRI BRAIN COMBO Violetta Travis APRN-CNP [address] [place] [address] Referral ID Status Reason Start Date Expiration Date V isits Requested Visits Authorized [id number] New Request 06/17/2021 2022 [address] 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 07/13/2023 12:24 PM Reason for Referral Specialty Diagnoses / Procedures Referred By Contpatti t Referred To Contact Diagnoses Schwannoma Procedures MRI INTERNAL AUDITORY CANAL WITH AND WITHOUT CONTRAST MT MRI BRAIN COMBO Lamberto Stockton MD [address] [place] [address] Referral ID Status Reason Start Date Expiration Date V isits Requested Visits Authorized [id number] New Request 07/08/2022 08/02/2023 1 1 Specialty Diagnoses / Procedures Referred By Contpatti t Referred To Contact Otolaryngology Diagnoses Schwannoma Lamberto Stockton MD [address] [place] [address] Korin Baird MD, PhD [address] [facility] [address] [place] [address] Referral ID Status Reason Start Date Expiration Date V isits Requested Visits Authorized [id number] New Request 07/08/2022 08/02/2023 1 1 Specialty Diagnoses / Procedures Referred By Contac t Referred To Contact Audiology Diagnoses Schwannoma Lamberto Stockton MD [address] [place] [address] Referral ID Status Reason Start Date Expiration Date V isits Requested Visits Authorized [id number] New Request 07/08/2022 08/02/2023 1 1 Specialty Diagnoses / Procedures Referred By Contac t Referred To Contact Diagnoses Left-sided acoustic neuroma Procedures MRI INTERNAL AUDITORY CANAL WITH AND WITHOUT CONTRAST CHG MRI BRAIN BRAIN STEM W/O W/CONTRAST MATERIAL Basilia Cazares PA-C [address] [place] [id number] Referral ID Status Reason Start Date Expiration Date V isits Requested Visits Authorized [id number] New Request 07/13/2023 08/06/2024 1 1 Additional Source Comments (unrecognized sect ion and content) No Status Records FoundNo Status Records Found INFORMATION SOURCE (unrecogn ized section and content) DATE CREATED AUTHOR 03/12/2020 [place] DATE CREATED AUTHOR AUTHOR'S ORGANIZ ATION 07/14/2023 [facility] Reason for Visit (unrecogniz ed section and content) Reason Comments Follow-up Reason Comments Follow-up Reason Comments New Patient Cc: new pt here to e stablish care, hx of acoustic neuroma Reason Comments Hearing Loss Acoustic Neuroma Specialty Diagnoses / Procedures Referred By Contac t Referred To Contact Informaticist / Audiology Procedures AUDIO INTERNAL Self, Self Strieb, Shaunna, AuD [address] [facility] [address] [place] [address] Referral ID Status Reason Start Date Expiration Date V isits Requested Visits Authorized [id number] New Request 02/24/2023 03/20/2024 1 1 Reason Comments Follow-up Hearing Loss Hearing loss in left ear Reason Comments Follow-up The patient reports he has lost more hearing in the left ear. Reports excessive tearing then dry sharp pain in the left eeye. Headaches improved as well as balance. Patient took balance therapy at his local hospital. Care Teams (unrecognized sec tion and content) Latrine Cleaner Relationship Specialty Start Date End Date Heidi FryeDO [address] [place] [address] [place] [phone] PCP - General Family Medicine 04/02/20 Herminio Redd DO [address] [facility] [address] [place] [address] Radiation Oncologist Radiation Oncology 03/24/20 Latrine Cleaner Relationship Specialty Start Date End Date Heidi FryeDO [address] [place] [place] [address] [place] [phone] PCP - General Family Medicine 04/02/20 Herminio Redd DO [address] [facility] [address] [place] [phone] Radiation Oncologist Radiation Oncology 03/24/20 Latrine Cleaner Relationship Specialty Start Date End Date Heidi FryeDO [address] [place] [place] [address] [place] [phone] PCP - General Family Medicine 04/02/20 Herminio Redd DO [address] [facility] [address] [place] [address] Radiation Oncologist Radiation Oncology 03/24/20 Latrine Cleaner Relationship Specialty Start Date End Date Heidi Frye DO [address] [place] [address] [place] [phone] PCP - General Family Medicine 04/02/20 Herminio Redd DO [address] [facility] [address] [place] [address] Radiation Oncologist Radiation Oncology 03/24/20 Latrine Cleaner Relationship Specialty Start Date End Date Heidi Frye DO [address] [place] [address] [place] [phone] PCP - General Family Medicine 04/02/20 Herminio Redd DO [address] [facility] [address] [place] [phone] Radiation Oncologist Radiation Oncology 03/24/20 Latrine Cleaner Relationship Specialty Start Date End Date Heidi Frye DO [address] [place] [place] [address] [place] [phone] PCP - General Family Medicine 04/02/20 Herminio Redd DO [address] [facility] [address] [place] [address] Radiation Oncologist Radiation Oncology 03/24/20 FOR RECORDS PERTAINING TO PATIENTS WHO ARE OR HAVE BEEN ENROLLED IN A CHEMICAL DEPENDENCY/SUBSTANCEABUSE PROGRAM, SOME INFORMATION MAY BE OMITTED. This clinical summary was aggregated from multiple sources. Caution should be exercised in using it in the provision of clinical care. This summary normalizes information from multiple sources, and as a consequence, information in this document may materially change the coding, format and clinical context of patient data. In addition, data may be omitted in some cases. CLINICAL DECISIONS SHOULD BE BASED ON THE PRIMARY CLINICAL RECORDS. [facility]. provides no warranty or guarantee of the accuracy or completeness of information in this document.
[2023-12-01 17:47] LABS: PSA,Total - Annual Screen 2.38 ng/mL (0.00-4.00)
[2023-12-01 17:49] LABS: Hemoglobin A1c 5.2 % (3.8-5.6)
== END | disposition home or self-care (01) ==
LOC: BFHLAB 15:38
PROVIDERS: PCP Family Medicine; Referring Provider Family Medicine; Visit Provider Family Medicine
DX: R73.01 Impaired fasting glucose (principal); Z12.5 Encounter for screening for malignant neoplasm of prostate
CPT/HCPCS: 36415; 83036; 84153; G0103

== ENCOUNTER 2023-12-25 02:49 | Emergency (ER) | payer OTHER, SELFPAY ==
[2023-12-25 02:51] VITALS: BP 184/97; PULSE 85; RESP 18; TEMP 36.1; O2SAT 98; BMI 35.9
--- NOTE | 2023-12-25 03:09 | CT_ITS ---
INDICATION: flank pain EXAMINATION: CT Abdomen And Pelvis W/O Contrast Injection TECHNIQUE: Helically acquired images were obtained of the abdomen and pelvis with sagittal and coronal reconstructed images. Individualized dose optimization techniques were used for this CT. IV contrast dosage and agent: None. Oral contrast: None. COMPARISON: 07/13/2022 CT. FINDINGS: VESSELS: No abdominal aortic aneurysm. LIVER: No intrahepatic or extrahepatic biliary duct dilation. GALLBLADDER: No calcified stones. No evidence of cholecystitis. PANCREAS: No evidence of a mass. No evidence of pancreatitis. SPLEEN: Normal. ADRENAL GLANDS: Normal. KIDNEYS AND URETERS: No urinary tract stone. No hydronephrosis or hydroureter. No significant asymmetric perinephric stranding. Stable bilateral parapelvic cysts with no follow-up recommended. URINARY BLADDER: Unremarkable. BOWEL: No evidence of diverticulosis or diverticulitis. Appendix appears normal. No evidence of bowel obstruction. REPRODUCTIVE ORGANS: Unremarkable. PERITONEUM: No intraabdominal free fluid or free air. LYMPH NODES: No pathologically enlarged mesenteric or retroperitoneal lymph nodes. ABDOMINAL WALL: No abdominal or pelvic wall hernia. BONES: No acute abnormality. LOWER CHEST: Visualized lung bases are unremarkable. CT/Abdomen/Pelvis without Cont IMPRESSION: 1. No acute abnormality. 2. No urinary tract stone or obstruction. 2. Stable bilateral parapelvic renal cysts. Electronically Signed: Deacon Real DO at 3:46 EST ,
[2023-12-25] MEDS: 0.9% Normal Saline (1000mL) 1,000 ML 999 ML IV (03:19)
[2023-12-25] MEDS: Ketorolac 30 MG/ML Syringe IV (03:20)
[2023-12-25] MEDS: Ondansetron 4 MG/2 ML Vial IM (03:20)
[2023-12-25 03:25] LABS: Absolute Lymphocyte Count 1.21 X10^3/uL (0.83-4.51); Absolute Neutrophil Count 3.4 X10^3/uL (2.0-7.7); Basophil# 0.04 X10^3/uL; Basophil% 0.7 % (0-1); Eosinophil# 0.24 X10^3/uL; Eosinophils% 4.4 % (0-5); Hematocrit 41.4 % (40-54); Hemoglobin 14.2 g/dL (13.0-16.5); Lymphocyte # 1.21 X10^3/ul (0.83-4.51); Lymphocyte % 22.3 % (19-41); Mean Corp Hgb Conc 34.3 g/dL (32-36); Mean Corpuscular Hgb 32.1 pg (27.0-32.0); Mean Corpuscular Volume 93.5 fL (80-94); Monocyte# 0.52 X10^3/uL; Monocyte% 9.6 % (0-10); NRBC Flagged by Analyzer 0 % (0-5); Neutrophil % 62.8 % (47-70); Platelet Count 245 K/mm3 (150-450); RBC Distribution Width CV 12.4 % (11.6-14.6); RBC Distribution Width SD 42.8 fl (35.1-43.9); Red Blood Count 4.43 M/mm3 (4.6-6.2); White Blood Count 5.4 K/mm3 (4.4-11.0)
[2023-12-25 03:39] LABS: Anion Gap 4 (5-15); BUN 22 mg/dL (7-18); BUN/Creat Ratio 20.8 RATIO (10-20); Calcium,Total 8.5 mg/dL (8.5-10.1); Chloride 108 mmol/L (98-107); Creatinine, Serum 1.06 mg/dL (0.70-1.30); EST Glomerular Filtration Rate 77 mL/min (>60); Est Glom Filt Rate - Afr Amer 93 mL/min (>60); Estimated Creatinine Clearance 116.27 ml/min; Glucose 102 mg/dL (74-106); Potassium 3.6 mmol/L (3.5-5.1); Sodium Level 138 mmol/L (136-145)
[2023-12-25 04:12] LABS: Red Blood Cells-Urine 0 SEEN /hpf (0-5); White Blood Cells 0 SEEN /hpf (0-5)
[2023-12-25 04:14] LABS: Color, Urine Yellow (Yellow); Glucose, Dipstick Normal (Normal); Ketone-Dipstick Negative (Negative); Leukocyte Esterase-Dipstick Negative /ul (Negative); Nitrite-Dipstick Negative (Negative); Occult Blood-Urine Negative /ul (Negative); Protein-Dipstick 15 mg/dl (Negative); Specific Gravity, Urine 1.025 (1.002-1.030); Urine Bilirubin Dipstick Negative (Negative); Urine Clarity Clear (Clear); Urine Urobilinogen 1 mg/dl (Normal)
[2023-12-25 04:23] LABS: Bacteria RARE /hpf (None Seen); Hyaline Cast 0-5 SEEN /lpf (0-5); Mucous, Urine 1+ /hpf (<or=2+); Squamous Epithelial Cells - UA 0-5 SEEN /hpf (0-5)
[2023-12-25 04:49] VITALS: BP 125/71; PULSE 84; RESP 16; O2SAT 98
--- NOTE | 2023-12-25 05:04 | EDS_ITS ---
HPI History of Present Illness Chief Complaint: Flank Pain Informant: patient and spouse/S.O. Narrative Narrative: Patient is a 58-year-old male with past medical history of hypertension asthma migraine headache. He states over the past few days he has been noticing intermittent right sided abdominal/flank pain. He states that it does seem to wax and wane and there is no obvious improvement or worsening of symptoms with position change. He states this evening the pain was more severe and was not resolving and secondary to this he comes in for evaluation. He denies any recent trauma or excessive activity. He denies any obvious hematuria or dysuria. [facility] Medical History (Updated 12/27/23 @ 05:[address] Tejas Isabel, DO) Right Achilles tendinitis Right ankle pain Acute frontal sinusitis, unspecified Wears hearing aid Wears contact lenses Wears glasses Alcohol use High cholesterol Migraine headache History of IBS Non-smoker CPAP (continuous positive airway pressure) dependence Sleep apnea History of edema Hypertension History of acoustic neuroma NECK AND BACK PAIN Difficulty balancing Asthma Acoustic neuroma Knee pain Severe headache History of hemorrhoids Home Medications ?Medication ?Instructions ?Recorded ?Last Taken ?Type albuterol sulfate 90 mcg/actuation 1 puff inhalation Q6H PRN 12/25/18 Unknown Rx aerosol inhaler (ProAir HFA) shortness of breath #6.7 grams lisinopril 10 mg tablet 10 mg PO DAILY 08/08/22 Unknown History ketorolac 10 mg tablet 10 mg PO 4X/DAY PRN pain 5 days 12/25/23 Unknown Rx #20 tabs ondansetron 4 mg disintegrating 4 mg PO TID PRN nausea and 12/25/23 Unknown Rx tablet vomiting #21 tabs oxycodone-acetaminophen 5 mg-325 1 tab PO Q6H PRN pain 3 days #12 12/25/23 Unknown Rx mg tablet (Percocet) tabs Allergy/AdvReac Type Severity Reaction Status Date / Time Gadolinium-MRI Contrast Allergy Severe Hives Verified 12/25/23 03:35 Medium Penicillins Allergy Unknown Verified 12/25/23 03:35 Surgical History History of left knee surgery Social History Smoking Status: Never smoker alcohol intake: current alcohol intake frequency: a few times a week ROS ROS ED Constitutional Constitutional ED: Denies chills or fever(s) ENT ENT ED: Denies sore throat Cardiovascular Cardiovascular: Denies chest pain Respiratory/Chest Respiratory/Chest: Denies cough or dyspnea Gastrointestinal Gastrointestinal: Reports abdominal pain and nausea; Denies diarrhea or vomiting Genitourinary Genitourinary ED: Denies dysuria or hematuria Musculoskeletal Musculoskeletal: Reports back pain Integumentary Denies rash Neurologic Neurologic: Denies headache(s) Hematologic/Lymphatic Hematologic/Lymphatic: Denies easy bleeding or easy bruising EXAM Physical Exam Const Vital Signs: 12/25/23 02:49 12/25/23 02:51 Temperature 97 F L Temperature Source Temporal Pulse Rate 85 Respiratory Rate 18 Blood Pressure 184/97 H Blood Pressure Mean 126 Pulse Ox 98 Oxygen Delivery Method Room Air Room Air Positive well nourished and well developed General Appearance ED: well developed; Negative for pallor HEENT HEENT Narrative: Normocephalic atraumatic Eyes PERRL and EOMs intact bilaterally General Eye ED: Negative for scleral icterus Neck supple Resp normal respiratory effort and clear to auscultation bilaterally Cardio regular rate and regular rhythm Rate: other Other Details: Regular rate and rhythm without murmurs rubs or gallops Radial and carotid pulses are equal and symmetric GI non-distended and no masses GI Narrative: Abdomen is soft and nondistended with normal active bowel sounds. There is mild pain with palpation along the right lateral abdomen without voluntary guarding or rigidity. No pulsatile mass or fluid wave. No pain over McBurney's point Negative Weiss sign Auscultation: normoactive bowel sounds Palpation: soft Back/Spine Back/Spine Narrative: Positive right CVA pain noted Extremity normal to inspection Neuro oriented x3, CN's II-XII intact bilaterally and no sensory deficits noted Sensorium / Orientation: alert Motor Exam: strength 5/5 throughout Psych mental status grossly normal Skin no rashes or lesions noted and no wounds Skin Narrative: No overlying soft tissue changes to suggest trauma or infection General Skin Exam: Negative for jaundice or pallor MDM MDM MDM Narrative Medical decision making narrative: Patient arrived to the ER hypertensive but has a past medical history of this. With his report of intermittent but worsening pain along the right flank/abdomen there is concern that this could be related to kidney stone versus UTI versus pyelonephritis versus biliary colic versus acute cholecystitis versus atypical pancreatitis. His history and exam is most consistent with a kidney stone and therefore elected to perform a noncontrast CT and basic laboratory studies. Urine sample showed no sign of infection going against UTI or pyelonephritis. There was no blood noted on the urine sample either by 15% of kidney stones do not show hematuria. He did not have signs of JOCELYN or clinically significant electrolyte abnormality. The CT scan showed bilateral renal cysts but these are chronic in nature and stable. Otherwise there is no obvious stone noted or other type of abdominal pathology. His history and exam is most consistent with stone but he does not have JOCELYN or signs of systemic infection and his pain was improved with the provided medication. Therefore I do not feel there is need for admission or further workup in the ER but he will be given an order form for an outpatient ultrasound to check for non-radiopaque kidney stone that has been causing the symptoms. Plan of care was discussed with patient and and they are both agreeable to it and therefore will be discharged at this time History & Record Review Discussion w/independent historian: Patient and Significant other Lab Data Attestation: I reviewed the patient's lab results. Labs: Laboratory Results - last 24 hr 12/25/23 12/25/23 03:00 04:07 WBC 5.4 RBC 4.43 L Hgb 14.2 Hct 41.4 MCV 93.5 MCH 32.1 H MCHC 34.3 RDW Std Deviation 42.8 RDW Coeff of Anita 12.4 Plt Count 245 MPV 10.0 Immature Gran % (Auto) 0.200 Neut % (Auto) 62.8 Lymph % (Auto) 22.3 [place] % (Auto) 9.6 Eos % (Auto) 4.4 Baso % (Auto) 0.7 Absolute Neuts (auto) 3.4 Absolute Lymphs (auto) 1.21 Nucleated RBC % 0 Sodium 138 Potassium 3.6 Chloride 108 H Carbon Dioxide 25.0 Anion Gap 4 L BUN 22 H Creatinine 1.06 Estim Creat Clear Calc 116.27 Est GFR (MDRD) Af Amer 93 Est GFR (MDRD) Non-Af 77 BUN/Creatinine Ratio 20.8 H Glucose 102 Calcium 8.5 Urine Color Yellow Urine Clarity Clear Urine pH 6.0 Ur Specific Julian 1.025 Urine Protein 15 H Urine Glucose (UA) Normal Urine Ketones Negative Urine Occult Blood Negative Urine Nitrite Negative Urine Bilirubin Negative Urine Urobilinogen 1 H Ur Leukocyte Esterase Negative Urine RBC 0 SEEN Urine WBC 0 SEEN Ur Squamous Epith Cells 0-5 SEEN Urine Bacteria RARE Hyaline Casts 0-5 SEEN Urine Mucus 1+ Radiography Diagnostic Testing: Clinical Impression(s) from Imaging Studies Abdomen/Pelvis CT 12/25/23 03:09 IMPRESSION: 1. No acute abnormality. 2. No urinary tract stone or obstruction. 2. Stable bilateral parapelvic renal cysts. Electronically Signed: Deacon Real DO at 3:46 EST , Discharge Plan Triage Chief Complaint: Flank Pain ED Provider: Tejas Isabel Dx/Rx/DC Orders Clinical Impression: Acute right flank pain, Hypertension, Asthma Instructions: ED Flank Pain, Uncertain Cause Prescriptions: New ketorolac 10 mg tablet 10 mg PO 4X/DAY PRN (Reason: pain) 5 Days Qty: 20 0RF ondansetron 4 mg tablet,disintegrating 4 mg PO TID PRN (Reason: nausea and vomiting) Qty: 21 0RF oxycodone-acetaminophen [Percocet] 5-325 mg tablet 1 tab PO Q6H PRN (Reason: pain) 3 Days Qty: 12 0RF No Action albuterol sulfate [ProAir HFA] 90 mcg/actuation HFA aerosol inhaler 1 puff INHALATION Q6H PRN (Reason: shortness of breath) Qty: 6.7 0RF lisinopril 10 mg tablet 10 mg PO DAILY Patient Comments: TAKE 1 TABLET BY MOUTHnONCE DAILY Other Ambulatory Orders: Kidney and Bladder (Routine) Facility: [facility] - Location: [facility] Ordered By: Dr. Tejas Isabel Primary Care Provider: Juan Frye Referrals: Juan Frye DO [Primary Care Provider] - Activity Restrictions/Additional Instructions: Your urine did not show infection or blood and your CT scan did not reveal an obvious kidney stone. However your physical exam is concerning for a stone that may not show up on CAT scan. Therefore obtain the outpatient ultrasound to further assess the cause of your flank pain. If you develop a fever or have worsening pain or any further concerns please return the hospital for repeat evaluation Print Language: Luxembourgish Disposition Disposition: Home, Self Care Discharge Date/Time: 12/25/23 05:23
[2023-12-25] MEDS: Morphine 4 MG/ML Syringe IV (05:18)
[2023-12-25] MEDS: oxyCODONE 5 MG Tablet PO (05:19)
[2023-12-25 05:21] VITALS: BP 137/91; PULSE 82; RESP 17; TEMP 36.8; O2SAT 99
== END 2023-12-25 05:23 | disposition home or self-care (01) ==
PROVIDERS: Emergency Provider Emergency Medicine; PCP Family Medicine; Visit Provider Emergency Medicine
DX: R10.9 Unspecified abdominal pain (principal); I10 Essential (primary) hypertension; J45.909 Unspecified asthma, uncomplicated; Z79.899 Other long term (current) drug therapy
CPT/HCPCS: 74176; 80048; 81001; 85025; 96361; 96372; 96374; 99283; J7030; A4216; J2405

== ENCOUNTER → 2023-12-26 | Outpatient (CLI) | payer OTHER, SELFPAY ==
--- NOTE | 2023-12-26 14:57 | CT_ITS ---
STUDY: CT CHEST WITHOUT CONTRAST REASON FOR EXAM: Male, 58 years old. ASSESS FOR CAD limited chest over read only RADIATION DOSAGE (If Supplied By Facility): CTDIvol = ( 22.58 ) mGy, DLP = ( 406.46 ) mGycm TECHNIQUE: Transaxial imaging was performed without the administration of intravenous contrast material. Cardiac over read examination. Individualized dose optimization techniques were used for this CT. COMPARISON: No relevant priors. FINDINGS: CHEST The lungs are normal. There is no demonstrated pleural abnormality. Normal heart and pericardium. No coronary artery calcification is seen. There are small lymph nodes within the mediastinum, which are normal in size and morphology most compatible with reactive lymph hyperplasia. Normal hilar regions. Normal unenhanced pulmonary arteries. Normal aorta arch and descending thoracic aorta. Normal osseous structures. There is no demonstrated abnormality of the visualized upper abdomen. CT/Limited Chest CT Cardiac Only IMPRESSION: No coronary artery calcification is seen. Electronically Signed: Robin Mcgee MD at 9:42 EST ,
--- NOTE | 2023-12-26 17:29 | CA.SCORE ---
Calcium Scoring Date of Study:: 12/26/23 Indications Indications: HTN Coronary Calcium Scoring: High-resolution Computed Tomographic imaging of the chest was performed on [12/26/23 ], with particular attention paid to the coronary arteries. Images from the examination were analyzed for the presence and extent of coronary artery calcification , using coronary calcium quantification software. The patient tolerated the procedure well and there were no complications. The results of the coronary calcification analysis are provided below. Findings Coronary Artery Left Main (LM): 0 Left Anterior Descending (LAD): 0 Left Circumflex (LCX): 0 Right Coronary Artery (RCA): 0 Total Agatston Score: 0 Percentile Rankin Calcium Scoring Interpretation: Different methods to categorize the overall amount of coronary plaque. Overall amount CAC SIS Visual of coronary plaque P1 Mild -100 <2 1-2 vessels with mild amount of plaque P2 Moderate 101-300 3-4 1-2 vessels with moderate amount, 3 vessels with mild amount of plaque P3 Severe 301-999 5-7 3 vessels with moderate amount, 1 vessel with severe amount of plaque P4 Extensive >1000 >8 2-3 vessels with severe amount of plaque Conclusion: No atherosclerotic plaque noted
== END | disposition home or self-care (01) ==
LOC: CT 14:55
PROVIDERS: PCP Family Medicine; Referring Provider Family Medicine; Visit Provider Family Medicine
DX: Z13.6 Encounter for screening for cardiovascular disorders (principal); E66.01 Morbid (severe) obesity due to excess calories; I10 Essential (primary) hypertension; E78.1 Pure hyperglyceridemia; R73.01 Impaired fasting glucose
CPT/HCPCS: 75571; 76380

== ENCOUNTER → 2023-12-27 | Outpatient (CLI) | payer OTHER, SELFPAY ==
--- NOTE | 2023-12-27 13:54 | US_ITS ---
STUDY: RENAL ULTRASOUND - COMPLETE REASON FOR EXAM: Male, 58 years old. flank pain TECHNIQUE: Ultrasound evaluation of the kidneys was performed with real-time and static craig-scale imaging. COMPARISON: None. FINDINGS: RIGHT KIDNEY: Normal location of the right kidney, which is normal in size. The right kidney measures 12.7 cm. There is a normal cortex of the right kidney. The renal cortex measures 1.9 cm. There is no right renal mass or cyst. There are no right renal calculi. There is moderate hydronephrosis of the right kidney. DISTAL RIGHT URETER: There is non-visualization of the distal right ureter. There is no demonstrated right ureterovesical junction calculus. There is a visualized right ureteral jet. LEFT KIDNEY: Normal location of the left kidney, which is normal in size. The left kidney measures 13.1 cm. There is a normal cortex of the left kidney. The renal cortex measures 1.9 cm. There is no left renal mass or cyst. There are no left renal calculi. There is moderate hydronephrosis of the left kidney. DISTAL LEFT URETER: There is non-visualization of the distal left ureter. There is no demonstrated left ureterovesical junction calculus. There is a visualized left ureteral jet. BLADDER: The distended urinary bladder has a volume of 443 ml. The empty urinary bladder has a volume of 181 ml. There is a normal wall thickness of the distended urinary bladder. There is no demonstrated mass within the urinary bladder. There are no demonstrated bladder calculi. US/Kidney and Bladder IMPRESSION: Moderate bilateral hydronephrosis. Electronically Signed: Igor Zhao MD at 9:06 EST ,
== END | disposition home or self-care (01) ==
LOC: US 13:53
PROVIDERS: PCP Family Medicine; Referring Provider Emergency Medicine; Visit Provider Emergency Medicine
DX: R10.9 Unspecified abdominal pain (principal)
CPT/HCPCS: 76770

== ENCOUNTER → 2023-12-29 | Outpatient (CLI) | payer OTHER, SELFPAY ==
--- NOTE | 2023-12-29 15:59 | RAD_ITS ---
EXAM: XR THORACIC SPINE, 3 VIEWS CLINICAL INDICATION: Dorsalgia TECHNIQUE: Frontal, lateral and swimmer''s views of the thoracic spine. COMPARISON: No relevant prior studies available. FINDINGS: VERTEBRAE: Unremarkable. Preserved vertebral body height. No fracture. No spondylolisthesis. Preservation of the normal thoracic kyphosis. No significant facet arthropathy. DISC SPACES: Unremarkable. Disc spaces are maintained. RAD/Thoracic Spine 3 Views IMPRESSION: No evidence of thoracic spinal fracture or spondylolisthesis. Electronically Signed: Guy Maynard MD at 0:10 EST ,
--- NOTE | 2023-12-29 15:59 | RAD_ITS ---
EXAM: XR LUMBOSACRAL SPINE, 4 OR 5 VIEWS CLINICAL INDICATION: Dorsalgia TECHNIQUE: Frontal, lateral and bilateral oblique views of the lumbar spine. COMPARISON: No relevant prior studies available. FINDINGS: VERTEBRAE: Unremarkable. Preserved vertebral body height. No fracture. No spondylolisthesis. Preservation of the normal lumbar lordosis. No significant facet arthropathy. DISC SPACES: No acute findings. Disc spaces are maintained. GASTROINTESTINAL TRACT: Unremarkable as visualized. Included bowel gas pattern is non-obstructive. RAD/L/S Spine Min 4 Views IMPRESSION: No evidence of lumbar spinal fracture or spondylolisthesis. Electronically Signed: Guy Maynard MD at 0:10 EST ,
== END | disposition home or self-care (01) ==
LOC: MTRAD 15:58
PROVIDERS: PCP Family Medicine; Referring Provider Nurse Practitioner Family; Visit Provider Nurse Practitioner Family
DX: M54.6 Pain in thoracic spine (principal); M54.50 Low back pain, unspecified
CPT/HCPCS: 72072; 72110

== ENCOUNTER → 2024-07-19 | Outpatient (CLI) | payer OTHER, SELFPAY ==
--- NOTE | 2024-07-19 16:26 | MRI_ITS ---
PROCEDURE: BRAIN W/WO CONTRAST 07/19/2024 REASON FOR EXAM: IAC TECHNIQUE: Routine brain MRI without and with intravenous contrast. Multiplanar and multisequence images were obtained. CONTRAST: Clariscan VOLUME: 27 mL COMPARISON: 06/27/2023. FINDINGS: No significant change in the size or appearance of the previously described 1.09 cm intensely enhancing soft tissue nodule and the origin of the left 7th and 8th cranial nerves at the cerebellar pontine angle slightly extending into the opening of the internal auditory canal which is consistent with a vestibular schwannoma. The nodule does not infiltrate into the bony or brain parenchymal structures in the surrounding regions. No edema is seen in the underlying brain parenchyma. The right 7th and 8th cranial nerves of the IAC are normal. The ventricles and extra-axial spaces are normal for the patient's age. There are no areas of abnormal signal intensity in the brain parenchyma. No abnormality is identified in the basal ganglia and thalami. No abnormality is identified in the brainstem. Unremarkable cerebellum. There is no midline shift or brain herniation. There is no demonstrated extra-axial, intraparenchymal, or intraventricular hemorrhage. There are no abnormal intra-or extra-axial fluid collections. There are no areas of restricted diffusion to suggest acute ischemia. The cerebellopontine angles, internal auditory canals and the cisternal portions of the accoustico - facial nerves are otherwise unremarkable. Unremarkable exam of the skull. Normal soft tissue structures. Mild chronic mucosal inflammatory changes of the maxillary sinuses and ethmoid air cells. The remaining visualized paranasal sinuses and mastoid air cells are clear. The visualized portions of the orbits are unremarkable. MRI/Brain W/WO Contrast IMPRESSION: No significant change in the size or appearance of the previously described 1.0 9 cm intensely enhancing soft tissue nodule and the origin of the left 7th and 8th cranial nerves at the cerebellar pontine ang le slightly extending into the opening of the internal auditory canal which is consistent with a vestibular schwannoma. The n odule does not infiltrate into the bony or brain parenchymal structures in the surrounding regions. No edema is seen in the underlying brain parenchyma. Reading [facility]
== END | disposition home or self-care (01) ==
PROVIDERS: PCP Family Medicine
DX: D33.3 Benign neoplasm of cranial nerves (principal)
CPT/HCPCS: 70553; A9575

== ENCOUNTER → 2024-12-16 | Outpatient (CLI) | payer OTHER, SELFPAY ==
--- NOTE | 2024-12-16 09:25 | RAD_ITS ---
PROCEDURE: CERV SPINE OBL/FLEX/EXT COMP 12/16/2024 REASON FOR EXAM: CERVICALGIA TECHNIQUE: Procedure Code: [id number] Modality: DX Procedure: CERV SPINE OBL/FLEX/EXT COMP FINDINGS: No evidence acute fracture or dislocation. [id number] degenerative changes of the visualized spine. Vertebral body heights are maintained. Normal alignment. RAD/Cerv Spine Obl/Flex/Ext Comp IMPRESSION: Spondylosis. Reading Location: [id number]
--- OUTSIDE RECORDS SUMMARY | 2024-12-16 09:41 | XMS RPT_ITS | CCD ---
Author Organization [facility] Care Team Providers Care Skinner Pelts Name Role Phone Tasha Villegas Unavailable Unavailable Heidi Rodriguez Unavailable Unavailable Alan Carlisle Unavailable Unavailable Herminio Redd DO Unavailable [phone] Heidi Rodriguez DO Primary Care Provider Herminio Redd DO Unavailable [phone] Heidi Rodriguez DO Primary Care Provider Dr. Heidi Rodriguez Primary Care Provider [phone] Dr. Heidi Rodriguez Referring Provider Dr. Rip Gambino Attending Provider Dr. Rip Gambino Referring Provider Dr. Rip Gambino Other Provider Dr. Shivani Marinelli Attending Provider Dr. Skyler Bashir Referring Provider Herminio Redd DO Unavailable Heidi Rodriguez DO Primary Care Provider Dr. Heidi Rodriguez Primary Care Provider Dr. Heidi Rodriguez Referring Provider MARIELY Cardenas Attending Provider Heidi Rodriguez DO Primary Care Provider LAURIE DUBOIS Attending Unavailable LAMBERTO STOCKTON Referring Unavailable HEIDI RODRIGUEZ A Primary Care Unavailable TE BURKS Attending Unavailable TE BURKS Referring Unavailable Melva, Heidi Primary Care Unavailable Melva, Heidi Primary Care Unavailable Assessment, Health Risk Attending Unavaila ble Melva, Heidi Primary Care Unavailable Tejas Isabel Attending Unavailable Melva, Heidi Primary Care Unavailable MelvaHeidi Attending Unavailable Melva, Heidi Referring Unavailable Melva, Heidi Primary Care Unavailable AndTejas stephen Attending Unavailable AndTejas stephen Referring Unavailable Minh Rodriguezril Attending Unavailable MelvaHeidi Consulting Unavailable Melva, Heidi Referring Unavailable Melva, Heidi Primary Care Unavailable Melva, Heidi Primary Care Unavailable ThorKayli gonzalez Attending Unavailable Thor, Kayli Referring Unavailable Allergies Allergy Classification Reported Allergen(s) Allergy Type Date of Onset Reaction(s) Facility Cat Hair Extract (1 source) Cat Hair Extract [facility] (antibiotic) (1 source) Penicillins Drug Allergy 1 [facility] Pollen (1 source) Bee pollen Substance Allergy 1 [facility] ([facility] source) bee pollen Allergy to substance (finding) [facility] Work Phone: (1 source) house dust Allergy to substance (finding) [facility] Work Phone: (4 sources) Penicillins; Translations: [Penicillins] Allergy to drug (finding) 9 Unknown [facility] Work Phone: (1 source) Animal dander - Cats Allergy to substance (finding) [facility] Work Phone: (2 sources) Bee pollen Drug Allergy 1 [facility] (5 sources[facility] Cat Hair Extract Drug Allergy 1 [facility] ([facility] sources) MITE EXTRACT Drug Allergy 1 [facility] (7 sources) Gadolinium Derivatives Propensity to adverse reactions to drug 1 [facility] Work Phone: (10 sources) Gadolinium-MRI Contrast Medium; Translations: [Gadolinium-MRI Contrast Medium] Allergy to substance 1 [facility] (8 sources) Penicillins Allergy to substance 9 Unknown [facility] (4 sources) Bee pollen Propensity to adverse reactions to drug 1 Itchy Eyes [facility] (5 sources) House dust mite Propensity to adverse reactions to drug 1 Itchy Eyes [facility] (4 sources) Penicillins Propensity to adverse reactions to drug 1 [facility] (1 source) Cat Hair Extract Propensity to adverse reactions to drug 1 Itchy Eyes [facility] (1 source) Penicillins Drug allergy (disorder) 4 [facility] Repository Medications Current Medications Medication Drug Class(es) Dates Sig (Normalized) Sig (Original) acetaminophen 325 mg / oxyCODONE hydrochloride 5 mg oral tablet (6 sources) Opioid Agonist Start: 08-18-2022 take 1 tablet by mouth every four hours Oxycodone-Acetami nophen (Percocet) 5-325 mg tablet Active 1 TABLET PO Q4H 15 5 August 18, 2022 [id number] 200 actuat albuterol 0.09 mg/actuat metered dose inhaler (19 sources) beta2-Adrenergic Agonist Start: 12-25-2018 take 1 puff(s) by inhalation every six hours Albuterol Sulfate (Proair Hfa) 90 mcg/actuation HFA aerosol inhaler Active 1 PUFF INHALATION EVERY 6 HOURS 6.7 December 25, 2018 1:00am take 1 puff(s) by in halation every six hours as needed for wheezing Albuterol 108 (90 Base) MCG/ACT Aero Akosua n inhaler Inhale 1 puff every 6 hours as needed for Wheezing. Active azithromycin 250 mg oral tablet (11 sources) Macrolide Antimicrobial Start: 12-13-2022 Azithromycin Active 250 MG PO daily 12 December 13, 2022 1:00am 2 tablets today, then 1 tablet daily on days 2 through 11 Start: 12-25-2018 End: 07-19-2022 Azithromycin Discontinued 0 PO .COMPLEX 6 December 25, 2018 1:00am July 19, 2022 9:30am take 500 mg today (day 1), then 250 mg for 4 days (days 2-5) PO BEE POLLEN PO (7 sources) take 1 tablet by mouth once darnell y BEE POLLEN PO Take 1 tablet by mouth daily. Joebees Active take 1 tablet by mouth once darnell y BEE POLLEN PO Take 1 tablet by mouth daily. Joebees 0 Active fexofenadine hydrochloride 180 mg oral tablet (3 sources) Histamine-1 Receptor Antagonist take 1 tablet by mouth once daily Fexofenadine (Jesusita Allergy) 180 MG tablet Take 1 tablet by mouth daily. Active lisinopril 10 mg oral tablet (12 sources) Angiotensin Converting Enzyme Inhibitor Start: 3 take 1 tablet by mouth once daily Lisinopril 10 MG tablet Take 1 tablet by mouth daily. 04/13/2022 Active predniSONE 50 mg oral tablet (7 sources) Start: predniSONE 50 MG tablet Take 1 tablet 13 hours, 7 hours and 1 hour prior to MRI 3 tablet 07/11/2024 Active Start: 06-21-2023 End: 07-14-2023 predniSONE 50 MG tablet Arlyn cations: Left-sided acoustic neuroma , H/O allergy to [...] to MRI 3 tablet 0 05/25/2021 Active tamsulosin hydrochloride 0.4 mg oral capsule (1 source) alpha-Adrenergic [place]a Start: 04-26-2024 take 1 capsule by mouth once daily Tamsulosin HCl 0.4 MG capsule Take 1 capsule by mouth daily. 04/26/2024 Active Completed/Discontinued Medications Medication Drug Class(es) Dates [...] completed) diphenhydrAMINE hydrochloride 50 mg oral capsule (14 sources) Histamine-1 Receptor Antagonist Start: 07-11-2024 End: 07-11-2024 take 1 capsule by mouth once, then take 1 capsule by mouth every hour diphenhydrAMINE 50 MG capsule Take 1 capsule by mouth once for 1 dose. One hour prior to MRI 1 capsule 07/11/2024 Active Start: 06-21-2023 End: 07-13-2023 diphenhydrAMINE 50 MG capsul e Indications: Left-sided acoustic neuroma , H/O allergy [...] Dispersible Take 1 tablet by mouth. Active 12 hr guaiFENesin 1200 mg extended release oral tablet (9 sources) Start: 12-25-2018 End: 07-19-2022 take 1 tablet by mouth twice daily, then take 1 tablet by mouth every twelve hours Guaifenesin (Mucinex) 1,200 mg tablet extended release 12hr Discontinued 1200 MG PO TWICE A DAY December 25, 2018 1:00am July 19, 2022 9:30am ibuprofen 100 mg oral tablet (9 sources) Nonsteroidal Anti-inflammatory Drug Start: 12-25-2018 End: 07-19-2022 take 2 tablets by mouth every six hours Ibuprofen (Advil) 100 mg tablet Discontinued 200 MG PO EVERY 6 HOURS December 25, 2018 1:00am July 19, 2022 9:30am loratadine 10 mg oral capsule (15 sources) Start: 11-02-2018 End: 07-19-2022 take 10 mg by mouth once daily Loratadine Discontinued 10 MG PO DAILY November 02, 2018 12:00am July 19, 2022 9:30am End: 07-14-2023 take 1 tablet by mouth once daily as needed loratadine 10 MG tablet Take 1 tablet by mouth daily as needed. 07/14/2023 Discontinued (Therapy completed) methylPREDNISolone 4 mg oral tablet (9 sources) Corticosteroid Start: 12-25-2018 End: 12-31-2018 take 1 tablet by mouth once Methylprednisolone (Medrol (Giuseppe)) 4 mg tablets,dose pack Discontinued 4 MG PO per package directions 21 December 25, 2018 1:00am December 31, 2018 1:08am omeprazole 20 mg delayed release oral capsule (6 sources) Proton Pump Inhibitor Start: 06-03-2020 End: 07-14-2023 take 1 capsule by mouth once daily omeprazole [address] capsule Take 1 capsule by mouth daily for 15 days. 15 capsule 06/03/2020 07/14/2023 Discontinued (Therapy completed) Problems Active Problems Problem Classification Problem Date Documented Date Episodic/Chronic Abdominal hernia (7 sources) Umbilical hernia; Translations: [Umbilical hernia without obstruction or gangrene] 07-13-2022 Episodic Asthma (9 sources) Asthma; Translations: [Unspecified asthma with (acute) exacerbation] 12-25-2018 Chronic Conditions associated with dizziness or vertigo (1 source) Vertigo; Translations: [Dizziness and giddiness] 02-24-2023 Episodic Disorders of lipid metabolism (1 source) Pure hyperglyceridemia; Translations: [Pure hyperglyceridemia] Onset: 01-08-2024 Chronic Essential hypertension (1 source) Essential (primary) hypertension; Translations: [Essential (primary) hypertension] Onset: 01-08-2024 Chronic Other and unspecified benign neoplasm (12 sources) Acoustic neuroma of left vestibular nerve; Translations: [Benign neoplasm of cranial nerves] Onset: 06-02-2020 Chronic Other and unspecified benign neoplasm (1 source) Benign neoplasm of cranial nerves; Translations: [Benign neoplasm of cranial nerves] Onset: 12-05-2024 Chronic Other and unspecified benign neoplasm (3 sources) Schwannoma; Translations: [Benign neoplasm of peripheral nerves [...] Chronic Other nutritional; endocrine; and metabolic disorders (7 sources) Obese class I; Translations: [Obesity, unspecified] Onset: 04-02-2020 04-02-2020 Chronic Other nutritional; endocrine; and metabolic disorders (1 source) Morbid (severe) obesity due to excess calories; Translations: [Morbid (severe) obesity due to excess calories] Onset: 01-08-2024 Chronic Past or Other Problems Problem Classification Problem Date Documented Date Episodic/Chronic Abdominal pain (1 source) Unspecified abdominal pain; Translations: [Unspecified abdominal pain] Onset: 01-22-2024 Episodic Diabetes mellitus without complication (1 source) Impaired fasting glucose; Translations: [Impaired fasting glucose] Onset: 01-08-2024 Episodic Headache; including migraine (8 sources) Headache; Translations: [Headache] Onset: 04-01-2020 Resolved: 04-01-2020 04-01-2020 Episodic Mood disorders (7 sources) Mood disorders Onset: 06-17-2021 Resolved: 08-12-2024 06-17-2021 Other and unspecified benign neoplasm (8 sources) Acoustic neuroma; Translations: [Benign neoplasm of cranial nerves] Onset: 04-01-2020 Resolved: 04-01-2020 04-01-2020 Chronic Other ear and sense organ disorders (9 sources) Sensorineural hearing loss, bilateral; Translations: [Sensorineural hearing loss, bilateral] Onset: 04-01-2020 Resolved: 04-01-2020 04-01-2020 Chronic Other ear and sense organ disorders (7 sources) Asymmetrical sensorineural hearing loss; Translations: [Sensorineural hearing loss, bilateral] Onset: 04-01-2020 Resolved: 04-01-2020 04-01-2020 Chronic Other ear and sense organ disorders (8 sources) Tinnitus; Translations: [Tinnitus, unspecified ear] Onset: 04-01-2020 Resolved: 04-01-2020 04-01-2020 Episodic Other lower respiratory disease (8 sources) H/O: asthma; Translations: [Personal history of other diseases of the respiratory system] Onset: 04-01-2020 Resolved: 04-01-2020 04-01-2020 Episodic Other lower respiratory disease (8 sources) H/O: respiratory disease; Translations: [Personal history of other diseases of the respiratory system] Onset: 04-01-2020 Resolved: 04-01-2020 04-01-2020 Episodic Other nervous system disorders (8 sources) Impairment of balance; Translations: [Other abnormalities of gait and mobility] Onset: 04-01-2020 Resolved: 04-01-2020 04-01-2020 Episodic Other nutritional; endocrine; and metabolic disorders (8 sources) H/O: metabolic disorder; Translations: [Personal history of other endocrine, nutritional and metabolic disease] Onset: 04-01-2020 Resolved: 04-01-2020 04-01-2020 Episodic Other screening for suspected conditions (not mental disorders or infectious disease) (2 sources) Encounter for screening for cardiovascular disorders; Translations: [Encounter for screening for cardiovascular disorders] Onset: 01-08-2024 Episodic Spondylosis; intervertebral disc disorders; other back problems (1 source) Pain in thoracic spine; Translations: [Pain in thoracic spine] Onset: 01-24-2024 Episodic Unclassified (1 source) Evaluation finding; Translations: [Blood tests prior to treatment or procedure] Unclassified (8 sources) NECK AND BACK PAIN 09-02-2021 NEGATED: Highlighted row has not occurred!Residual codes; unclassified (4 sources) Disease Episodic Results Test Name Value Interpretation Reference Range Facility CBC, [employer] 10-08-2025 Absolute Lymph 0.89 X10 3/uL Normal 0.83-4.51 [facility] Comment on above: Performed By: #### L 500.2500, L100.0100 #### [facility] [address] [place], [address] Absolute Neut 3.3 X10 3/uL Normal 2.0-7.7 [facility] Comment on above: Performed By: #### L 500.2500, L100.0100 #### [facility] [address] [place], [address] Basophils/100 WBC (Bld) 1.1 % High 0-1 [facility] Comment on above: Performed By: #### L 500.2500, L100.0100 #### [facility] [address] [place], [address] Eosinophils/100 WBC (Bld) 1.9 % Normal 0-5 [facility] Comment on above: Performed By: #### L 500.2500, L100.0100 #### [facility] [address] [place], [address] Erythrocyte distribution width (RBC) [Ratio] 12.2 % Normal 11.6-14.6 [facility] Comment on above: Performed By: #### L 500.2500, L100.0100 #### [facility] [address] [place], [address] Hematocrit (Bld) [Volume fraction] 43.0 % Normal 40-54 [facility] Comment on above: Performed By: #### L 500.2500, L100.0100 #### [facility] [address] [place], [address] Hemoglobin (Bld) [Mass/Vol] 14.9 g/dL Normal 13.0-16.5 [facility] Comment on above: Performed By: #### L 500.2500, L100.0100 #### [facility] [address] [place], [address] Lymphocytes/100 WBC (Bld) 19.1 % Normal 19-41 [facility] Comment on above: Performed By: #### L 500.2500, L100.0100 #### [facility] [address] [place], [address] MCH (RBC) [Entitic mass] 32.3 pg High 27.0-32.0 [facility] Comment on above: Performed By: #### L 500.2500, L100.0100 #### [facility] [address] [place], [address] MCHC (RBC) [Mass/Vol] 34.7 g/dL Normal 32-36 [facility] Comment on above: Performed By: #### L 500.2500, L100.0100 #### [facility] [address] [place], [address] MCV (RBC) [Entitic vol] 93.1 fL Normal 80-94 [facility] Comment on above: Performed By: #### L 500.2500, L100.0100 #### [facility] [address] [place], [address] Monocytes/100 WBC (Bld) 7.7 % Normal 0-10 [facility] Comment on above: Performed By: #### L 500.2500, L100.0100 #### [facility] [address] [place], [address] Neutrophils/100 WBC (Bld) 70.0 % Normal 47-70 [facility] Comment on above: Performed By: #### L 500.2500, L100.0100 #### [facility] [address] [place], [address] NRBC # 0.00 10 3/uL Normal 0-5 [facility] Comment on above: Performed By: #### L 500.2500, L100.0100 #### [facility] [address] [place], [address] Nucleated RBC (Bld) [#/Vol] 0 10*3/uL Normal 0-5 [facility] Comment on above: Performed By: #### L 500.2500, L100.0100 #### [facility] [address] [place], [address] Platelet mean volume (Bld) [Entitic vol] 10.0 fL Normal 6.2-12.0 [facility] Comment on above: Performed By: #### L 500.2500, L100.0100 #### [facility] [address] [place], [address] Platelets (Bld) [#/Vol] 204 10*3/uL Normal 150-450 [facility] Comment on above: Performed By: #### L 500.2500, L100.0100 #### [facility] [address] [place], [address] RBC (Bld) [#/Vol] 4.62 10*6/uL Normal 4.6-6.2 [facility] Comment on above: Performed By: #### L 500.2500, L100.0100 #### [facility] [address] [place], [address] RDW SD 42.1 fl Normal 35.1-43.9 [facility] Comment on above: Performed By: #### L 500.2500, L100.0100 #### [facility] [address] [place], [address] WBC (Bld) [#/Vol] 4.7 10*3/uL Normal 4.4-11.[address] [facility] Comment on above: Performed By: #### L 500.2500, L100.0100 #### [facility] [address] [place], [address] [employer] 5 Albumin [Mass/Vol] 4.4 g/dL Normal 3.5-5.[address] [facility] Comment on above: Performed By: #### L 500.2500, L100.0100 #### [facility] [address] [place], [address] Albumin/Globulin [Mass ratio] 1.6 {ratio} Normal 0.9-2.4 [facility] Comment on above: Performed By: #### L 500.2500, L100.0100 #### [facility] [address] [place], [address] ALK PHOS 75 U/L Normal 40-129 [facility] Comment on above: Performed By: #### L 500.2500, L100.0100 #### [facility] [address] [place], [address] ALT [Catalytic activity/Vol] 30 U/L Normal <=46 [facility] Comment on above: Performed By: #### L 500.2500, L100.0100 #### [facility] [address] [place], [address] AST [Catalytic activity/Vol] 31 U/L Normal <=37 [facility] Comment on above: Result Comment: Hemo lysis present, Results??could be affected. ?? Performed By: #### L 500.2500, L100.0100 #### [facility] [address] [place], [address] Bilirubin [Mass/Vol] 0.70 mg/dL Normal 0.00-1.30 [facility] Comment on above: Performed By: #### L 500.2500, L100.0100 #### [facility] [address] [place], [address] Bilirubin.direct [Mass/Vol] 0.19 mg/dL Normal 0.00-0.30 [facility] Comment on above: Result Comment: Hemo lysis present, Results??could be affected. ?? Performed By: #### L 500.2500, L100.0100 #### [facility] [address] [place], [address] BUN/CRE 18.4 RATIO Normal 10-20 [facility] Comment on above: Performed By: #### L 500.2500, L100.0100 #### [facility] [address] [place], [address] Calcium [Mass/Vol] 9.2 mg/dL Normal 7.6-11.[address] [facility] Comment on above: Performed By: #### L 500.2500, L100.0100 #### [facility] [address] [place], [address] Chloride [Moles/Vol] 106 mmol/L Normal 98-108 [facility] Comment on above: Performed By: #### L 500.2500, L100.0100 #### [facility] [address] [place], [address] CO2 [Moles/Vol] 26.3 mmol/L Normal 21.0-32.0 [facility] Comment on above: Performed By: #### L 500.2500, L100.0100 #### [facility] [address] [place], [address] Creatinine [Mass/Vol] 1.09 mg/dL Normal 0.70-1.20 [facility] Comment on above: Performed By: #### L 500.2500, L100.0100 #### [facility] [address] [place], [address] GAP 8 Normal 5-15 [facility] Comment on above: Performed By: #### L 500.2500, L100.0100 #### [facility] [address] [place], [address] GFR/1.73 sq M.predicted among non-blacks MDRD (S/P/Bld) [Vol rate/Area] 79 mL/min/{1.73_m2} Normal >60 [facility] Comment on above: Result Comment: mL/m in/1.73m2 CKD-EPI Creatinine Equation (2020) Performed By: #### L 500.2500, L100.0100 #### [facility] [address] [place], [address] Globulin (S) [Mass/Vol] 2.8 g/dL Normal 2.2-4.2 [facility] Comment on above: Performed By: #### L 500.2500, L100.0100 #### [facility] [address] [place], [address] Glucose [Mass/Vol] 98 mg/dL Normal 70-[address] [facility] Comment on above: Performed By: #### L 500.2500, L100.0100 #### [facility] [address] [place], [address] LDH 190 U/L Normal 87-241 [facility] Comment on above: Result Comment: Hemo lysis present, Results??could be affected. ?? Performed By: #### L 500.2500, L100.0100 #### [facility] [address] [place], [address] Phosphate [Mass/Vol] 2.8 mg/dL Normal 2.7-4.5 [facility] Comment on above: Performed By: #### L 500.2500, L100.0100 #### [facility] [address] [place], [address] Potassium [Moles/Vol] 4.7 mmol/L Normal 3.3-5.1 [facility] Comment on above: Result Comment: Hemo lysis present, Results??could be affected. ?? Performed By: #### L 500.2500, L100.0100 #### [facility] [address] [place], [address] Sodium [Moles/Vol] 141 mmol/L Normal 133-[address] [facility] Comment on above: Performed By: #### L 500.2500, L100.0100 #### [facility] [address] [place], [address] T PROT 7.2 g/dL Normal 5.9-8.4 [facility] Comment on above: Performed By: #### L 500.2500, L100.0100 #### [facility] [address] [place], [address] Urea nitrogen [Mass/Vol] 20 mg/dL High 4-19 [facility] Comment on above: Performed By: #### L 500.2500, L100.0100 #### [facility] [address] [place], [address] URIC 6.8 mg/dL Normal 3.5-7.2 [facility] Comment on above: Result Comment: The drugs N-Acetylcysteine and Metamizole may falsely depress this assay. Performed By: #### L 500.2500, L100.0100 #### [facility] [address] [place], [address] Urinalysis, [employer] 11-13 BILIRUBIN URINE Negative Normal Negative [facility] Comment on above: Order Comment: Urine , Random Performed By: #### L 500.2500, L100.0100 #### [facility] [address] [place], [address] Clarity (U) Clear Normal Clear [facility] Comment on above: Order Comment: Urine , Random Performed By: #### L 500.2500, L100.0100 #### [facility] [address] [place], [address] Color (U) Yellow Normal Yellow [facility] Comment on above: Order Comment: Urine , Random Performed By: #### L 500.2500, L100.0100 #### [facility] [address] [place], [address] GLUCOSE, UR Normal Normal Normal [facility] Comment on above: Order Comment: Urine , Random Performed By: #### L 500.2500, L100.0100 #### [facility] [address] [place], [address] KETONE UR Negative Normal Negative [facility] Comment on above: Order Comment: Urine , Random Performed By: #### L 500.2500, L100.0100 #### [facility] [address] [place], [address] LEUK ESTERASE Negative Normal Negative [facility] Comment on above: Order Comment: Urine , Random Performed By: #### L 500.2500, L100.0100 #### [facility] [address] [place], [address] Nitrite Ql (U) Negative Normal Negative [facility] Comment on above: Order Comment: Urine , Random Performed By: #### L 500.2500, L100.0100 #### [facility] [address] [place], [address] OCCULT BLOOD-UR Negative Normal Negative [facility] Comment on above: Order Comment: Urine , Random Performed By: #### L 500.2500, L100.0100 #### [facility] [address] [place], [address] pH UR 6.0 Normal 5.0 - 8.0 [facility] Comment on above: Order Comment: Urine , Random Performed By: #### L 500.2500, L100.0100 #### [facility] [address] [place], [address] PROT DIPSTX 15 mg/dl Abnormal Negative [facility] Comment on above: Order Comment: Urine , Random Performed By: #### L 500.2500, L100.0100 #### [facility] [address], [address] SP.GR. DIPSTX 1.020 Normal 1.002-1.030 [facility] Comment on above: Order Comment: Urine , Random Performed By: #### L 500.2500, L100.0100 #### [facility] [address] [place], [address] UROBILI Normal Normal Normal [facility] Comment on above: Order Comment: Urine , Random Performed By: #### L 500.2500, L100.0100 #### [facility] [address] [place], [address] Brain W/WO Contraston 2024 Brain W/WO Contrast [facility] Imaging Services [address] [place] [address] Brain W/WO Contrast MR#: [id number] Acct: [id number] Name: GORGE VOGEL Rep #: [id number] : 1965 M 59 From: Zaida erazo MD PCP: Dr. Heidi Rodriguez, DO Status: REG CLI Study: Brain W/WO Contrast Date of Exam: 07/19/24 Exam# [id number] Ordering Dr: LYNN CAZARES PROCEDURE: BRAIN W/WO CONTRAST 07/19/2024 REASON FOR EXAM: IAC TECHNIQUE: Routine brain MRI without and with intravenous contrast. Multiplanar and multisequence images were obtained. CONTRAST: Clariscan VOLUME: 27 mL COMPARISON: 06/27/2023. FINDINGS: No significant change in the size or appearance of the previously described 1.09 cm intensely enhancing soft tissue nodule and the origin of the left 7th and 8th cranial nerves at the cerebellar pontine angle slightly extending into the opening of the internal auditory canal which is consistent with a vestibular schwannoma. The nodule does not infiltrate into the bony or brain parenchymal structures in the surrounding regions. No edema is seen in the underlying brain parenchyma. The right 7th and 8th cranial nerves of the IAC are normal. The ventricles and extra-axial spaces are normal for the patient's age. There are no areas of abnormal signal intensity in the brain parenchyma. No abnormality is identified in the basal ganglia and thalami. No abnormality is identified in the brainstem. Unremarkable cerebellum. There is no midline shift or brain herniation. There is no demonstrated extra-axial, intraparenchymal, or intraventricular hemorrhage. There are no abnormal intra-or extra-axial fluid collections. There are no areas of restricted diffusion to suggest acute ischemia. The cerebellopontine angles, internal auditory canals and the cisternal portions of the accoustico - facial nerves are otherwise unremarkable. Unremarkable exam of the skull. Normal soft tissue structures. Mild chronic mucosal inflammatory changes of the maxillary sinuses and ethmoid air cells. The remaining visualized paranasal sinuses and mastoid air cells are clear. The visualized portions of the orbits are unremarkable. MRI/Brain W/WO Contrast IMPRESSION: No significant change in the size or appearance of the previously described 1.09 cm intensely enhancing soft tissue nodule and the origin of the left 7th and 8th cranial nerves at the cerebellar pontine angle slightly extending into the opening of the internal auditory canal which is consistent with a vestibular schwannoma. The nodule does not infiltrate into the bony or brain parenchymal structures in the surrounding regions. No edema is seen in the underlying brain parenchyma. Reading Location: [place] [address] CC: LYNN CAZARES; Dr. Heidi Rodriguez DO Hand Candy Cutter: Signed Normal [facility] L/S Spine Min 4 Views12-08 L/S Spine Min [address] [facility] Imaging Services [address] [place], [place] [address] L/S Spine Min 4 Views MR#: [id number] Acct: [id number] Name: GORGE VOGEL Rep #: [id number] : 1965 M 58 From: Guy Maynard MD PCP: Dr. Heidi Rodriguez DO Status: REG CLI Study: L/S Spine Min 4 Views Date of Exam: 12/29/23 Exam# [id number] Ordering Dr: Kayli Mcrae BLACK POWDER GLAZING OPERATOR-C [id number] EXAM: XR LUMBOSACRAL SPINE, 4 OR 5 VIEWS CLINICAL INDICATION: Dorsalgia TECHNIQUE: Frontal, lateral and bilateral oblique views of the lumbar spine. COMPARISON: No relevant prior studies available. FINDINGS: VERTEBRAE: Unremarkable. Preserved vertebral body height. No fracture. No spondylolisthesis. Preservation of the normal lumbar lordosis. No significant facet arthropathy. DISC SPACES: No acute findings. Disc spaces are maintained. GASTROINTESTINAL TRACT: Unremarkable as visualized. Included bowel gas pattern is non-obstructive. RAD/L/S Spine Min 4 Views IMPRESSION: No evidence of lumbar spinal fracture or spondylolisthesis. Electronically Signed: Guy Maynard MD at 0:10 EST , CC: LILIA Mcrae; Dr. Heidi Rodriguez DO Hand Candy Cutter: Signed Normal [facility] Thoracic Spine 3 Viewson Thoracic Spine [address] [facility] Imaging Services [address] [place] [address] Thoracic Spine 3 Views MR#: [id number] Acct: [id number] Name: GORGE VOGEL Rep #: [id number] : 1965 M 58 From: Guy Maynard MD PCP: Dr. Heidi Rodriguez DO Status: REG CLI Study: Thoracic Spine 3 Views Date of Exam: 12/29/23 Exam# [id number] Ordering Dr: Kayli Mcrae BLACK POWDER GLAZING OPERATOR-C [id number] EXAM: XR THORACIC SPINE, 3 VIEWS CLINICAL INDICATION: Dorsalgia TECHNIQUE: Frontal, lateral and swimmer''s views of the thoracic spine. COMPARISON: No relevant prior studies available. FINDINGS: VERTEBRAE: Unremarkable. Preserved vertebral body height. No fracture. No spondylolisthesis. Preservation of the normal thoracic kyphosis. No significant facet arthropathy. DISC SPACES: Unremarkable. Disc spaces are maintained. RAD/Thoracic Spine 3 Views IMPRESSION: No evidence of thoracic spinal fracture or spondylolisthesis. Electronically Signed: Guy Maynard MD at 0:10 EST , CC: LILIA Mcrae; Dr. Heidi Rodriguez DO Hand Candy Cutter: Signed Normal [facility] Kidney and Bladderon [address] [facility] Imaging Services [address] [place], [place] [id number] Kidney and Bladder MR#: [id number] Acct: [id number] Name: GORGE VOGEL Rep #: [id number] : 1965 M 58 From: Igor Zhao MD PCP: Dr. Heidi Rodriguez DO Status: REG CLI Study: Kidney and Bladder Date of Exam: 12/27/23 Exam# [id number] Ordering Dr: Tejas Isabel DO [id number] STUDY: RENAL ULTRASOUND - COMPLETE REASON FOR EXAM: Male, 58 years old. flank pain TECHNIQUE: Ultrasound evaluation of the kidneys was performed with real-time and static craig-scale imaging. COMPARISON: None. FINDINGS: RIGHT KIDNEY: Normal location of the right kidney, which is normal in size. The right kidney measures 12.7 cm. There is a normal cortex of the right kidney. The renal cortex measures 1.9 cm. There is no right renal mass or cyst. There are no right renal calculi. There is moderate hydronephrosis of the right kidney. DISTAL RIGHT URETER: There is non-visualization of the distal right ureter. There is no demonstrated right ureterovesical junction calculus. There is a visualized right ureteral jet. LEFT KIDNEY: Normal location of the left kidney, which is normal in size. The left kidney measures 13.1 cm. There is a normal cortex of the left kidney. The renal cortex measures 1.9 cm. There is no left renal mass or cyst. There are no left renal calculi. There is moderate hydronephrosis of the left kidney. DISTAL LEFT URETER: There is non-visualization of the distal left ureter. There is no demonstrated left ureterovesical junction calculus. There is a visualized left ureteral jet. BLADDER: The distended urinary bladder has a volume of 443 ml. The empty urinary bladder has a volume of 181 ml. There is a normal wall thickness of the distended urinary bladder. There is no demonstrated mass within the urinary bladder. There are no demonstrated bladder calculi. US/Kidney and Bladder IMPRESSION: Moderate bilateral hydronephrosis. Electronically Signed: Igor Zhao MD at 9:06 EST , CC: Dr. Heidi Rodriguez DO; Tejas Isabel DO Hand Candy Cutter: Signed Normal [facility] Coronary Angiography CTon Coronary Angiography CT [facility] Imaging Services [address] [place] [address] 12/26/23 1729 MR#: [id number] Acct: [id number] Name: GORGE VOGEL Rep #: [id number] : 1965 58 From: Miguel Rodriguez MD PCP: Dr. Heidi Rodriguez DO Status:REG CLI Y Location: CT Calcium Scoring Date of Study:: 12/26/23 Indications Indications: HTN Coronary Calcium Scoring: High-resolution Computed Tomographic imaging of the chest was performed on [12/26/23 ], with particular attention paid to the coronary arteries. Images from the examination were analyzed for the presence and extent of coronary artery calcification , using coronary calcium quantification software. The patient tolerated the procedure well and there were no complications. The results of the coronary calcification analysis are provided below. Findings Coronary Artery Left Main (LM): 0 Left Anterior Descending (LAD): 0 Left Circumflex (LCX): 0 Right Coronary Artery (RCA): 0 Total Agatston Score: 0 Percentile Rankin Calcium Scoring Interpretation: Different methods to categorize the overall amount of coronary plaque. Overall amount CAC SIS Visual of coronary plaque P1 Mild -100 <2 1-2 vessels with mild amount of plaque P2 Moderate 101-300 3-4 1-2 vessels with moderate amount, 3 vessels with mild amount of plaque P3 Severe 301-999 5-7 3 vessels with moderate amount, 1 vessel with severe amount of plaque P4 Extensive >1000 >8 2-3 vessels with severe amount of plaque Conclusion: No atherosclerotic plaque noted 12/26/23 1731 Date Miguel Rodriguez MD Cosigner Signature (if applicable): Date CC: Dr. Miguel Rodriguez MD; Dr. Heidi Rodriguez DO Signed Normal [facility] Limited Chest CT Cardiac Onl yon 12-26-[address] [facility] Imaging Services [address] [place], [place] [id number] Limited Chest CT Cardiac Only MR#: [id number] Acct: [id number] Name: GORGE VOGEL Rep #: [id number] : 1965 M 58 From: Robin kelsey MD PCP: Dr. Heidi Rodriguez DO Status: REG CLI Study: Limited Chest CT Cardiac Only Date of Exam: Exam# [id number] Ordering Dr: Heidi Rodriguez DO [id number] STUDY: CT CHEST WITHOUT CONTRAST REASON FOR EXAM: Male, 58 years old. ASSESS FOR CAD limited chest over read only RADIATION DOSAGE (If Supplied By Facility): CTDIvol = ( 22.58 ) mGy, DLP = ( 406.46 ) mGycm TECHNIQUE: Transaxial imaging was performed without the administration of intravenous contrast material. Cardiac over read examination. Individualized dose optimization techniques were used for this CT. COMPARISON: No relevant priors. FINDINGS: CHEST The lungs are normal. There is no demonstrated pleural abnormality. Normal heart and pericardium. No coronary artery calcification is seen. There are small lymph nodes within the mediastinum, which are normal in size and morphology most compatible with reactive lymph hyperplasia. Normal hilar regions. Normal unenhanced pulmonary arteries. Normal aorta arch and descending thoracic aorta. Normal osseous structures. There is no demonstrated abnormality of the visualized upper abdomen. CT/Limited Chest CT Cardiac Only IMPRESSION: No coronary artery calcification is seen. Electronically Signed: Robin Mcgee MD at 9:42 EST Reading Location ID and State: [facility] / [place] , Service support , CC: Dr. Heidi Rodriguez DO Hand Candy Cutter: Signed Normal [facility] Abdomen/Pelvis without Conto n 12-25-2023 Abdomen/Pelvis without Cont [facility] Imaging Services [address] [place], [place] [address] Abdomen/Pelvis without Cont MR#: [id number] Acct: [id number] Name: GORGE VOGEL Rep #: [id number] : 1965 M 58 From: Deacon Real MD PCP: Dr. Heidi Rodriguez DO Status: REG ER Study: Abdomen/Pelvis without Cont Date of Exam: 12/07 09/29 Exam# [id number] Ordering Dr: Tejas Isabel DO [id number] INDICATION: flank pain EXAMINATION: CT Abdomen And Pelvis W/O Contrast Injection TECHNIQUE: Helically acquired images were obtained of the abdomen and pelvis with sagittal and coronal reconstructed images. Individualized dose optimization techniques were used for this CT. IV contrast dosage and agent: None. Oral contrast: None. COMPARISON: 07/13/2022 CT. ____ FINDINGS: VESSELS: No abdominal aortic aneurysm. LIVER: No intrahepatic or extrahepatic biliary duct dilation. GALLBLADDER: No calcified stones. No evidence of cholecystitis. PANCREAS: No evidence of a mass. No evidence of pancreatitis. SPLEEN: Normal. ADRENAL GLANDS: Normal. KIDNEYS AND URETERS: No urinary tract stone. No hydronephrosis or hydroureter. No significant asymmetric perinephric stranding. Stable bilateral parapelvic cysts with no follow-up recommended. URINARY BLADDER: Unremarkable. BOWEL: No evidence of diverticulosis or diverticulitis. Appendix appears normal. No evidence of bowel obstruction. REPRODUCTIVE ORGANS: Unremarkable. PERITONEUM: No intraabdominal free fluid or free air. LYMPH NODES: No pathologically enlarged mesenteric or retroperitoneal lymph nodes. ABDOMINAL WALL: No abdominal or pelvic wall hernia. BONES: No acute abnormality. LOWER CHEST: Visualized lung bases are unremarkable. _ CT/Abdomen/Pelvis without Cont IMPRESSION: 1. No acute abnormality. 2. No urinary tract stone or obstruction. 2. Stable bilateral parapelvic renal cysts. Electronically Signed: Deacon Real DO at 3:46 EST , CC: Dr. Heidi Rodriguez DO; Tejas Isabel DO Hand Candy Cutter: Signed Normal [facility] Basic Metabolic Profile (BMP )on 12-25-2023 BUN/CRE 20.8 RATIO High 11-25 [facility] Comment on above: Performed By: #### L 500.2500, L100.0100 #### [facility] [address] [place], [address] CA,Total 8.5 mg/dL Normal 8.5-10.1 [facility] Comment on above: Performed By: #### L 500.2500, L100.0100 #### [facility] [address] [place], [address] Chloride [Moles/Vol] 108 mmol/L High 98-107 [facility] Comment on above: Performed By: #### L 500.2500, L100.0100 #### [facility] [address] [place], [address] CO2 [Moles/Vol] 25.0 mmol/L Normal 21.0-32.0 [facility] Comment on above: Performed By: #### L 500.2500, L100.0100 #### [facility] [address] [place], [address] Creatinine [Mass/Vol] 1.06 mg/dL Normal 0.70-1.30 [facility] Comment on above: Result Comment: The validity of the calculated GFR GFRAA in patients over 70 years has not been determined. Clinical correlation is essential. Performed By: #### L 500.2500, L100.0100 #### [facility] [address] [place], [address] ECRCL 116.27 ml/min Normal [facility] Comment on above: Performed By: #### L 500.2500, L100.0100 #### [facility] [address] [place], [address] EST GFR - AA 93 mL/min Normal >60 [facility] Comment on above: Result Comment: Afri can [place] GFR Calc Performed By: #### L 500.2500, L100.0100 #### [facility] [address] [place], [address] GAP 4 Low 5-15 [facility] Comment on above: Performed By: #### L 500.2500, L100.0100 #### [facility] [address] [place], [address] GFR/1.73 sq M.predicted among non-blacks MDRD (S/P/Bld) [Vol rate/Area] 77 mL/min/{1.73_m2} Normal >60 [facility] Comment on above: Result Comment: Non- GFR Calc Performed By: #### L 500.2500, L100.0100 #### [facility] [address] [place], [address] Glucose [Mass/Vol] 102 mg/dL Normal 74-[address] [facility] Comment on above: Result Comment: Fast ing Glucose result from 100 to 125 mg/dL suggests IMPAIRED HOMEOSTASIS per A.D.A. criteria. Performed By: #### L 500.2500, L100.0100 #### [facility] [address] [place], [address] Potassium [Moles/Vol] 3.6 mmol/L Normal 3.5-5.1 [facility] Comment on above: Performed By: #### L 500.2500, L100.0100 #### [facility] [address] [place], [address] Sodium [Moles/Vol] 138 mmol/L Normal 136-[address] [facility] Comment on above: Performed By: #### L 500.2500, L100.0100 #### [facility] [address] [place], [address] Urea nitrogen [Mass/Vol] 22 mg/dL High 7-18 [facility] Comment on above: Performed By: #### L 500.2500, L100.0100 #### [facility] [address] [place], [address] CBC W/Diff, Automatedon 11- Absolute Lymph 1.21 X10 3/uL Normal 0.83-4.51 [facility] Comment on above: Performed By: #### L 500.2500, L100.0100 #### [facility] [address] [place], [address] Absolute Neut 3.4 X10 3/uL Normal 2.0-7.7 [facility] Comment on above: Performed By: #### L 500.2500, L100.0100 #### [facility] [address] [place], [address] Basophils/100 WBC (Bld) 0.7 % Normal 0-1 [facility] Comment on above: Performed By: #### L 500.2500, L100.0100 #### [facility] [address] [place], [address] Eosinophils/100 WBC (Bld) 4.4 % Normal 0-5 [facility] Comment on above: Performed By: #### L 500.2500, L100.0100 #### [facility] [address] [place], [address] Erythrocyte distribution width (RBC) [Ratio] 12.4 % Normal 11.6-14.6 [facility] Comment on above: Performed By: #### L 500.2500, L100.0100 #### [facility] [address] [place], [address] Hematocrit (Bld) [Volume fraction] 41.4 % Normal 40-54 [facility] Comment on above: Performed By: #### L 500.2500, L100.0100 #### [facility] [address] [place], [address] Hemoglobin (Bld) [Mass/Vol] 14.2 g/dL Normal 13.0-16.5 [facility] Comment on above: Performed By: #### L 500.2500, L100.0100 #### [facility] [address] [place], [address] IG% 0.200 Normal 0.0-0.9 [facility] Comment on above: Result Comment: IG% - Immature Granulocytes (promyelocytes, myelocytes and metamyelocytes) > 1% indicates that a LEFT SHIFT is Present. Performed By: #### L 500.2500, L100.0100 #### [facility] [address] [place], [address] Lymphocytes/100 WBC (Bld) 22.3 % Normal 19-41 [facility] Comment on above: Performed By: #### L 500.2500, L100.0100 #### [facility] [address] [place], [address] MCH (RBC) [Entitic mass] 32.1 pg High 27.0-32.0 [facility] Comment on above: Performed By: #### L 500.2500, L100.0100 #### [facility] [address] [place], [address] MCHC (RBC) [Mass/Vol] 34.3 g/dL Normal 32-36 [facility] Comment on above: Performed By: #### L 500.2500, L100.0100 #### [facility] [address] [place], [address] MCV (RBC) [Entitic vol] 93.5 fL Normal 80-94 [facility] Comment on above: Performed By: #### L 500.2500, L100.0100 #### [facility] [address] [place], [address] Monocytes/100 WBC (Bld) 9.6 % Normal 0-10 [facility] Comment on above: Performed By: #### L 500.2500, L100.0100 #### [facility] [address] [place], [address] Neutrophils/100 WBC (Bld) 62.8 % Normal 47-70 [facility] Comment on above: Performed By: #### L 500.2500, L100.0100 #### [facility] [address] [place], [address] Nucleated RBC (Bld) [#/Vol] 0 10*3/uL Normal 0-5 [facility] Comment on above: Performed By: #### L 500.2500, L100.0100 #### [facility] [address] [place], [address] Platelet mean volume (Bld) [Entitic vol] 10.0 fL Normal 6.2-12.0 [facility] Comment on above: Performed By: #### L 500.2500, L100.0100 #### [facility] [address] [place], [address] Platelets (Bld) [#/Vol] 245 10*3/uL Normal 150-450 [facility] Comment on above: Performed By: #### L 500.2500, L100.0100 #### [facility] [address] [place], [address] RBC (Bld) [#/Vol] 4.43 10*6/uL Low 4.6-6.2 [facility] Comment on above: Performed By: #### L 500.2500, L100.0100 #### [facility] [address] [place], [address] RDW SD 42.8 fl Normal 35.1-43.9 [facility] Comment on above: Performed By: #### L 500.2500, L100.0100 #### [facility] [address] [place], [address] WBC (Bld) [#/Vol] 5.4 10*3/uL Normal 4.4-11.[address] [facility] Comment on above: Performed By: #### L 500.2500, L100.0100 #### [facility] [address] [place], [address] Emergency Department Summary on 12-25-2023 Emergency Department Summary [facility] Medical Records Department [address] [place] [address] Emergency Department Summary 12/25/23 MR#: [id number] Acct: [id number] Name: GORGE VOGEL Rep #: [id number] : 1965 58 From: Tejas Isabel DO PCP: Dr. Heidi Rodriguez DO Status:DEP ER Location: ED HPI History of Present Illness Chief Complaint: Flank Pain Informant: patient and spouse/S.O. Narrative Narrative: Patient is a 58-year-old male with past medical history of hypertension asthma migraine headache. He states over the past few days he has been noticing intermittent right sided abdominal/flank pain. He states that it does seem to wax and wane and there is no obvious improvement or worsening of symptoms with position change. He states this evening the pain was more severe and was not resolving and secondary to this he comes in for evaluation. He denies any recent trauma or excessive activity. He denies any obvious hematuria or dysuria. [facility] Medical History (Updated 12/27/23 @ 05:[address] Tejas Isabel DO) Right Achilles tendinitis Right ankle pain Acute frontal sinusitis, unspecified Wears hearing aid Wears contact lenses Wears glasses Alcohol use High cholesterol Migraine headache History of IBS Non-smoker CPAP (continuous positive airway pressure) dependence Sleep apnea History of edema Hypertension History of acoustic neuroma NECK AND BACK PAIN Difficulty balancing Asthma Acoustic neuroma Knee pain Severe headache History of hemorrhoids Home Medications ???Medication ???Instructions ???Recorded ???Last Taken ???Type albuterol sulfate 90 mcg/actuation 1 puff inhalation Q6H PRN 12/25/18 Unknown Rx aerosol inhaler (ProAir HFA) shortness of breath #6.7 grams lisinopril 10 mg tablet 10 mg PO DAILY 08/08/22 Unknown History ketorolac 10 mg tablet 10 mg PO 4X/DAY PRN pain 5 days 12/25/23 Unknown Rx #20 tabs ondansetron 4 mg disintegrating 4 mg PO TID PRN nausea and 12/25/23 Unknown Rx tablet vomiting #21 tabs oxycodone-acetaminop hen 5 mg-325 1 tab PO Q6H PRN pain 3 days #12 12/25/23 Unknown Rx mg tablet (Percocet) tabs Allergy/AdvReac Type Severity Reaction Status Date / Time Gadolinium-MRI Contrast Allergy Severe Hives Verified 12/25/23 03:35 Medium Penicillins Allergy Unknown Verified 12/25/23 03:35 Surgical History History of left knee surgery Social History Smoking Status: Never smoker alcohol intake: current alcohol intake frequency: a few times a week ROS ROS ED Constitutional Constitutional ED: Denies chills or fever(s) ENT ENT ED: Denies sore throat Cardiovascular Cardiovascular: Denies chest pain Respiratory/Chest Respiratory/Chest: Denies cough or dyspnea Gastrointestinal Gastrointestinal: Reports abdominal pain and nausea; Denies diarrhea or vomiting Genitourinary Genitourinary ED: Denies dysuria or hematuria Musculoskeletal Musculoskeletal: Reports back pain Integumentary Denies rash Neurologic Neurologic: Denies headache(s) Hematologic/Lymphati c Hematologic/Lymphati c: Denies easy bleeding or easy bruising EXAM Physical Exam Const Vital Signs: 12/25/23 02:49 12/25/23 02:51 Temperature 97 F L Temperature Source Temporal Pulse Rate 85 Respiratory Rate 18 Blood Pressure 184/97 H Blood Pressure Mean 126 Pulse Ox 98 Oxygen Delivery Method Room Air Room Air Positive well nourished and well developed General Appearance ED: well developed; Negative for pallor HEENT HEENT Narrative: Normocephalic atraumatic Eyes PERRL and EOMs intact bilaterally General Eye ED: Negative for scleral icterus Neck supple Resp normal respiratory effort and clear to auscultation bilaterally Cardio regular rate and regular rhythm Rate: other Other Details: Regular rate and rhythm without murmurs rubs or gallops Radial and carotid pulses are equal and symmetric GI non-distended and no masses GI Narrative: Abdomen is soft and nondistended with normal active bowel sounds. There is mild pain with palpation along the right lateral abdomen without voluntary guarding or rigidity. No pulsatile mass or fluid wave. No pain over McBurney's point Negative Weiss sign Auscultation: normoactive bowel sounds Palpation: soft Back/Spine Back/Spine Narrative: Positive right CVA pain noted Extremity normal to inspection Neuro oriented x3, CN's II-XII intact bilaterally and no sensory deficits noted Sensorium / Orientation: alert Motor Exam: strength 5/5 throughout Psych mental status grossly normal Skin no rashes or lesions noted and no wounds Skin Narrative: No overlying soft tissue changes to suggest trauma or infection G (more content not included)... Normal [facility] Urinalysis, Completeon 12-24 BACTERIA RARE Normal None Seen [facility] Comment on above: Order Comment: CLEAN CATCH Performed By: #### L [id number] #### [facility] [address] [place], [address] CAST,HYALINE 0-5 SEEN Normal 0-5 [facility] Comment on above: Order Comment: CLEAN CATCH Performed By: #### L [id number] #### [facility] [address] [facility] [address] EPI,SQUAMOUS 0-5 SEEN Normal 0-5 [facility] Comment on above: Order Comment: CLEAN CATCH Performed By: #### L [id number] #### [facility] [address] [facility] [address] Mucus Ql (Urine sed) 1+ /hpf Normal [facility] Comment on above: Order Comment: CLEAN CATCH Performed By: #### [id number] #### [facility] [address] [facility] [address] RBC 0 SEEN Normal 0-5 [facility] Comment on above: Order Comment: CLEAN CATCH Performed By: #### [id number] #### [facility] [address] [facility] [address] WBC 0 SEEN Normal 0-5 [facility] Comment on above: Order Comment: CLEAN CATCH Performed By: #### [id number] #### [facility] [address] [place], [address] Absolute lymphocyte countOrd ered By: Heidi Rodriguez on 05-19-2023 Lymphocytes Auto (Unsp spec) [#/Vol] 0.89 10*3/uL 0.83-4.51 [facility] Automated lymphocyte count a s percentage of total leukocytesOrdered By: Heidi Rodriguez on 05-19-2023 Lymphocytes/100 WBC Auto (Unsp spec) 19.8 % 19-41 [facility] Basophil percentageOrdered B y: Heidi Rodriguez on 05-19-2023 Basophils/100 WBC (Bld) 0.9 % 0-1 [facility] Bilirubin [Mass/Vol] 0.80 mg/dL 0.20-1.00 [facility] Comment on above: For patients on eltr ombopag therapy, use of Dimension [place] TBIL is not recommended. Chloride [Moles/Vol] 109 mmol/L 98-107 [facility] Eosinophils/100 WBC (Bld) 1.3 % 0-5 [facility] Glucose [Mass/Vol] 102 mg/dL 74-[address] [facility] Comment on above: Fasting Glucose resu lt from 100 to 125 mg/dL suggests IMPAIRED HOMEOSTASIS per A.D.A. criteria. Hemoglobin (Bld) [Mass/Vol] 15.5 g/dL 13.0-16.5 [facility] Monocytes/100 WBC (Bld) 8.7 % 0-10 [facility] Neutrophils (Bld) [#/Vol] 3.1 10*3/uL 2.0-7.7 [facility] Neutrophils/100 WBC (Bld) 68.9 % 47-70 [facility] Potassium [Moles/Vol] 4.1 mmol/L 3.5-5.1 [facility] Comment on above: Slight Hemolysis, Re sult may be falsely increased. Protein [Mass/Vol] 7.7 g/dL 6.4-8.[address] [facility] Sodium [Moles/Vol] 139 mmol/L 136-[address] [facility] Testosterone [Mass/Vol] 499.59 ng/dL [facility] Comment on above: CENTRAL 90% REFERENC E RANGES MALE AGE <50 197.44 - 669.58 ng/dL MALE AGE > or = 50 187.72 - 684.19 ng/dL FEMALE AGE <50 8.38 - 35.01 ng/dL FEMALE AGE > or = 50 <7.00 - 35.92 ng/dL Effective as of 09/01/20 WBC (Bld) [#/Vol] 4.5 10*3/uL 4.4-11.[address] [facility] Determination of erythrocyte mean corpuscular volume (MCV)Ordered By: Heidi Rodriguez on 05-19-2023 MCV (RBC) [Entitic vol] 95.3 fL 80-94 [facility] Erythrocyte distribution wid th ratioOrdered By: Heidi Rodriguez on 05-19-2023 Erythrocyte distribution width (RBC) [Ratio] 12.3 % 11.6-14.6 [facility] Erythrocyte distribution wid th standard deviationOrdered By: Heidi Rodriguez on 05-19-2023 Erythrocyte distribution width (RBC) [Entitic vol] 42.7 fL 35.1-43.9 [facility] Hematocrit Auto (Bld) [Volum e fraction]Ordered By: Heidi Rodriguez on 05-19-2023 Hematocrit (Bld) [Volume fraction] 46.5 % 40-54 [facility] Immature granulocytes/100 WB C Auto (Bld)Ordered By: Heidi Rodriguez on 05-19-2023 Immature granulocytes/100 WBC (Bld) 0.400 % 0.0-0.9 [facility] Comment on above: IG% - Immature Granu locytes (promyelocytes, myelocytes and metamyelocytes) > 1% indicates that a LEFT SHIFT is Present. Laboratory - Chemistry and C hemistry - challengeOrdered By: Heidi Rodriguez on 05-19-2023 Albumin/Globulin [Mass ratio] 1.1 {ratio} 0.9-2.4 [facility] ALP [Catalytic activity/Vol] 82 U/L 45-117 [facility] ALT [Catalytic activity/Vol] 31 U/L 16-61 [facility] CO2 [Moles/Vol] 28.0 mmol/L 21.0-32.0 [facility] Cobalamin (Vitamin B12) [Mass/Vol] 537 pg/mL 211-911 [facility] Globulin (S) [Mass/Vol] 3.7 g/dL 2.2-4.2 [facility] Urea nitrogen/Creatinine [Mass ratio] 16.4 mg/mg 10-20 [facility] - Hematology and Cell countsOrdered By: Heidi Rodriguez on 05-19-2023 MCH (RBC) [Entitic mass] 31.8 pg 27.0-32.0 [facility] MCHC (RBC) [Mass/Vol] 33.3 g/dL 32-36 [facility] Nucleated RBC/100 WBC (Bld) [Ratio] 0 % 0-5 [facility] Platelet mean volume (Bld) [Entitic vol] 10.1 fL 6.2-12.0 [facility] Platelets (Bld) [#/Vol] 223 10*3/uL 150-450 [facility] No Panel InformationOrdered By: Heidi Rodriguez on 05-19-2023 Estimated GFR (MDRD) Amer 84 mL/min >60 [facility] Comment on above: GFR Calc Estimated GFR (MDRD) Non-Af Amer 69 mL/min >60 [facility] Comment on above: Non- GFR Calc Vitamin D 25-Hydroxy 26.3 ng/mL [facility] Comment on above: Vitamin D 25(OH) Sta tus Range Deficiency <20 ng/mL (50nmol/L) Insufficiency 20 - 30 ng/mL (50 - 75 nmol/L) Sufficiency 30 - 100 ng/mL (75 - 250 nmol/L) Toxicity >100 ng/mL (>250 nmol/L) RBC Auto (Bld) [#/Vol]Ordere d By: Heidi Rodriguez on 05-19-2023 RBC (Bld) [#/Vol] 4.88 10*6/uL 4.6-6.2 [facility] Serum or plasma calcium hafsa urement (mass/volume)Ordered By: Heidi Rodriguez on 05-19-2023 Calcium [Mass/Vol] 9.0 mg/dL 8.5-10.[address] [facility] Serum or plasma creatinine m easurement (mass/volume)Ordered By: Heidi Rodriguez on 05-19-2023 Creatinine [Mass/Vol] 1.16 mg/dL 0.70-1.30 [facility] Comment on above: The validity of the calculated GFR & GFRAA in patients over 70 years has not been determined. Clinical correlation is essential. Serum or plasma thyroid stim ulating hormone (TSH) measurement (units/volume)Ordered By: Heidi Rodriguez on 05-19-2023 TSH Qn 1.07 uIU/mL 0.358-3.74 [facility] Serum or plasma urea nitroge n measurement (mass/volume)Ordered By: Heidi Rodriguez on 05-19-2023 Urea nitrogen [Mass/Vol] 19 mg/dL 7-18 [facility] Thin prep Papanicolaou smear with manual screeningOrdered By: Heidi Rodriguez on 05-19-2023 Thin prep Papanicolaou smear with manual screening 4.0 g/dL 3.2-5.0 [facility] Thin prep Papanicolaou smear with manual screening 13 U/L 15 [facility] Comment on above: Slight Hemolysis, Re sult may be falsely increased. Thin prep Papanicolaou smear with manual screening 2 5-15 [facility] AUDIOGRAMon 02-24-2023 [facility] Radiology Study observation (narrative) [facility] No Panel InformationOrdered By: Heidi Rodriguez on 10-11-2022 Prostate Specific Antigen Screen 2.66 ng/mL 0.00-4.00 [facility] Comment on above: This test was perfor med using the TPSA assay method for thePosto7 chemistry system. Values obtained with differentassay methods cannot be used interchangably.When changing PSA assays in the course of monitoring apatient, additional sequential testing should be carriedout to confirm baseline values. Absolute lymphocyte countOrd ered By: HEALTH ASSESSMENT on 10-06-2022 Lymphocytes Auto (Unsp spec) [#/Vol] 0.92 10*3/uL 0.83-4.51 [facility] Absolute reticulocyte countO rdered By: HEALTH ASSESSMENT on 10-06-2022 Reticulocytes (Bld) [#/Vol] 0.00 10*3/uL 0-5 [facility] Basophil percentageOrdered B y: HEALTH ASSESSMENT on 10-06-2022 Basophil percentage 3.3 mg/dL 2.5-4.9 [facility] Bilirubin [Mass/Vol] 0.90 mg/dL 0.20-1.00 [facility] Comment on above: For patients on eltr ombopag therapy, use of Dimension [place] TBIL is not recommended. Chloride [Moles/Vol] 107 mmol/L 98-107 [facility] Cholesterol [Mass/Vol] 199 mg/dL <200 [facility] Comment on above: <200 mg/dL Desirable 200-240 mg/dL Borderline >240 mg/dL High Risk Glucose [Mass/Vol] 95 mg/dL 74-[address] [facility] LDH [Catalytic activity/Vol] 227 U/L 87-241 [facility] Comment on above: Moderate Hemolysis, Result may be falsely increased. Neutrophils (Bld) [#/Vol] 3.4 10*3/uL 2.0-7.7 [facility] Potassium [Moles/Vol] 4.3 mmol/L 3.5-5.1 [facility] Comment on above: Moderate Hemolysis, Result may be falsely increased. Protein [Mass/Vol] 7.8 g/dL 6.4-8.[address] [facility] Sodium [Moles/Vol] 138 mmol/L 136-[address] [facility] Triglyceride [Mass/Vol] 275 mg/dL <199 [facility] Comment on above: The drugs N-Acetylcy steine and Metamizole may falsely depress this assay.Serum Triglycerides Reference Interval Normal <150 mg/dL Borderline high 150 - 199 mg/dL High 200 - 499 mg/dL Very High > or = 500 mg/dL WBC (Bld) [#/Vol] 4.8 10*3/uL 4.4-11.[address] [facility] Blood erythrocytes count (nu mber/volume)Ordered By: HEALTH ASSESSMENT on 10-06-2022 RBC (Bld) [#/Vol] 4.81 10*6/uL 4.6-6.2 [facility] Blood hemoglobin measurement (mass/volume)Ordered By: HEALTH ASSESSMENT on 10-06-2022 Hemoglobin (Bld) [Mass/Vol] 15.4 g/dL 13.0-16.5 [facility] Blood leukocytes count corre cted for nucleated erythrocytes (number/volume)Ordered By: HEALTH ASSESSMENT on 10-06-2022 WBC corrected for nucl RBC (Bld) [#/Vol] BLACK POWDER GLAZING OPERATOR [facility] Blood platelet mean volumeOr dered By: HEALTH ASSESSMENT on 10-06-2022 Platelet mean volume (Bld) [Entitic vol] 9.6 fL 6.2-12.0 [facility] Determination of erythrocyte mean corpuscular volume (MCV)Ordered By: HEALTH ASSESSMENT on 10-06-2022 MCV (RBC) [Entitic vol] 95.2 fL 80-94 [facility] Direct bilirubinOrdered By: HEALTH ASSESSMENT on 10-06-2022 Bilirubin.direct [Mass/Vol] 0.14 mg/dL 0.00-0.30 [facility] Hematocrit Auto (Bld) [Volum e fraction]Ordered By: HEALTH ASSESSMENT on 10-06-2022 Hematocrit (Bld) [Volume fraction] 45.8 % 40-54 [facility] - Chemistry and C hemistry - challengeOrdered By: HEALTH ASSESSMENT on 10-06-2022 ALP [Catalytic activity/Vol] 225 U/L 45-117 [facility] ALT [Catalytic activity/Vol] 28 U/L 16-61 [facility] Cholesterol.total/Gregoria sterol in HDL [Mass ratio] 5.20 {ratio} [facility] CO2 [Moles/Vol] 25.0 mmol/L 21.0-32.0 [facility] Globulin (S) [Mass/Vol] 3.9 g/dL 2.2-4.2 [facility] Urea nitrogen/Creatinine [Mass ratio] 16.2 mg/mg 10-20 [facility] - Hematology and Cell countsOrdered By: HEALTH ASSESSMENT on 10-06-2022 Erythrocyte distribution width (RBC) [Entitic vol] 43.8 fL 35.1-43.9 [facility] Erythrocyte distribution width (RBC) [Ratio] 12.5 % 11.6-14.6 [facility] MCH (RBC) [Entitic mass] 32.0 pg 27.0-32.0 [facility] Nucleated RBC/100 WBC (Bld) [Ratio] 0 % 0-5 [facility] MCHC Auto (RBC) [Mass/Vol]Or dered By: HEALTH ASSESSMENT on 10-06-2022 MCHC (RBC) [Mass/Vol] 33.6 g/dL 32-36 [facility] No Panel InformationOrdered By: HEALTH ASSESSMENT on 10-06-2022 Estimated Creatinine Clearance Calc BLACK POWDER GLAZING OPERATOR [facility] Estimated GFR (MDRD) Amer 88 mL/min >60 [facility] Comment on above: GFR Calc Estimated GFR (MDRD) Non-Af Amer 73 mL/min >60 [facility] Comment on above: Non- GFR Calc Immature Granulocyte % (Auto) BLACK POWDER GLAZING OPERATOR [facility] Platelets bldOrdered By: [facility] ASSESSMENT on 10-06-2022 Platelets (Bld) [#/Vol] 211 10*3/uL 150-450 [facility] Review by pathologistOrdered By: HEALTH ASSESSMENT on 10-06-2022 Pathologist review Matt (Unsp spec) [Interp] BLACK POWDER GLAZING OPERATOR [facility] Segmented neutrophils/100 WB C Auto (Bld)Ordered By: HEALTH ASSESSMENT on 10-06-2022 Segmented neutrophils/100 WBC (Bld) 70.6 % 47-70 [facility] Serum or plasma albumin hafsa urement (mass/volume)Ordered By: HEALTH ASSESSMENT on 10-06-2022 Albumin [Mass/Vol] 3.9 g/dL 3.2-5.[address] [facility] Serum or plasma albumin/glob ulin mass ratioOrdered By: HEALTH ASSESSMENT on 10-06-2022 Albumin/Globulin [Mass ratio] 1.0 {ratio} 0.9-2.4 [facility] Serum or plasma calcium hafsa urement (mass/volume)Ordered By: HEALTH ASSESSMENT on 10-06-2022 Calcium [Mass/Vol] 9.0 mg/dL 8.5-10.[address] [facility] Serum or plasma cholesterol in HDL measurement (mass/volume)Ordered By: HEALTH ASSESSMENT on 10-06-2022 Cholesterol in HDL [Mass/Vol] 38 mg/dL >40 [facility] Comment on above: The drugs N-Acetylcy steine and Metamizole may falsely depress this assay. Reference Range HDL <40 mg/dL Low HDL Cholesterol HDL >or= 60 mg/dL High HDL Cholesterol Serum or plasma cholesterol in VLDL measurement (mass/volume)Ordered By: HEALTH ASSESSMENT on 10-06-2022 Cholesterol in VLDL [Mass/Vol] 55 mg/dL 5-40 [facility] Serum or plasma creatinine m easurement (mass/volume)Ordered By: HEALTH ASSESSMENT on 10-06-2022 Creatinine [Mass/Vol] 1.11 mg/dL 0.70-1.30 [facility] Comment on above: The validity of the calculated GFR & GFRAA in patients over 70 years has not been determined. Clinical correlation is essential. Serum or plasma low density lipoprotein (LDL) cholesterol measurement (mass/volume)Ordered By: HEALTH ASSESSMENT on 10-06-2022 Cholesterol in LDL [Mass/Vol] 106 mg/dL 0-130 [facility] Serum or plasma urea nitroge n measurement (mass/volume)Ordered By: HEALTH ASSESSMENT on 10-06-2022 Urea nitrogen [Mass/Vol] 18 mg/dL 7-18 [facility] Serum or plasma uric acid me asurement (mass/volume)Ordered By: [facility] ASSESSMENT on 10-06-2022 Urate [Mass/Vol] 7.6 mg/dL 3.5-7.2 [facility] Comment on above: The drugs N-Acetylcy steine and Metamizole may falsely depress this assay. Thin prep Papanicolaou smear with manual screeningOrdered By: HEALTH ASSESSMENT on 10-06-2022 Thin prep Papanicolaou smear with manual screening 26 U/L 15-37 [facility] Comment on above: Moderate Hemolysis, Result may be falsely increased. Thin prep Papanicolaou smear with manual screening 6 5-15 [facility] Absolute lymphocyte countOrd ered By: Dr. Hamilton on 07-13-2022 Lymphocytes Auto (Unsp spec) [#/Vol] 0.92 10*3/uL 0.83-4.51 [facility] Basophil percentageOrdered B y: Dr. Hamilton on 07-13-2022 Basophils/100 WBC (Bld) 0.8 % 0-1 [facility] Chloride [Moles/Vol] 108 mmol/L 98-[address] [facility] Eosinophils/100 WBC (Bld) 2.4 % 0-5 [facility] Glucose [Mass/Vol] 94 mg/dL 74-106 [facility] Lactate [Moles/Vol] 0.7 mmol/L 0.4-2.0 [facility] Neutrophils (Bld) [#/Vol] 4.3 10*3/uL 2.0-7.7 [facility] Neutrophils/100 WBC (Bld) 72.9 % 47-70 [facility] Potassium [Moles/Vol] 3.9 mmol/L 3.5-5.1 [facility] Sodium [Moles/Vol] 140 mmol/L 136-[address] [facility] WBC (Bld) [#/Vol] 5.9 10*3/uL 4.4-11.[address] [facility] Blood erythrocytes count (nu mber/volume)Ordered By: Dr. Hamilton on 07-13-2022 RBC (Bld) [#/Vol] 4.69 10*6/uL 4.6-6.2 [facility] Blood hemoglobin measurement (mass/volume)Ordered By: Dr. Hamilton on 07-13-2022 Hemoglobin (Bld) [Mass/Vol] 15.0 g/dL 13.0-16.5 [facility] Blood lymphocytes/100 leukoc ytesOrdered By: Dr. Hamilton on 07-13-2022 Lymphocytes/100 WBC (Bld) 15.5 % 19-41 [facility] Blood monocytes/100 leukocyt esOrdered By: Dr. Hamilton on 07-13-2022 Monocytes/100 WBC (Bld) 7.6 % 0-10 [facility] Blood platelet mean volumeOr dered By: Dr. Hamilton on 07-13-2022 Platelet mean volume (Bld) [Entitic vol] 9.8 fL 6.2-12.0 [facility] Determination of erythrocyte mean corpuscular volume (MCV)Ordered By: Dr. Hamilton on 07-13-2022 MCV (RBC) [Entitic vol] 93.8 fL 80-94 [facility] Hematocrit Auto (Bld) [Volum e fraction]Ordered By: Dr. Hamilton on 07-13-2022 Hematocrit (Bld) [Volume fraction] 44.0 % 40-54 [facility] - Chemistry and C hemistry - challengeOrdered By: Dr. Hamilton on 07-13-2022 CO2 [Moles/Vol] 27.0 mmol/L 21.0-32.0 [facility] Urea nitrogen/Creatinine [Mass ratio] 15.5 mg/mg 10-20 [facility] - Hematology and Cell countsOrdered By: Dr. Hamilton on 07-13-2022 Erythrocyte distribution width (RBC) [Entitic vol] 44.0 fL 35.1-43.9 [facility] Erythrocyte distribution width (RBC) [Ratio] 12.9 % 11.6-14.6 [facility] Immature granulocytes/100 WBC (Bld) 0.800 % 0.0-0.9 [facility] Comment on above: IG% - Immature Granu locytes (promyelocytes, myelocytes and metamyelocytes) > 1% indicates that a LEFT SHIFT is Present. MCH (RBC) [Entitic mass] 32.0 pg 27.0-32.0 [facility] Nucleated RBC/100 WBC (Bld) [Ratio] 0 % 0-5 [facility] MCHC Auto (RBC) [Mass/Vol]Or dered By: Dr. Hamilton on 07-13-2022 MCHC (RBC) [Mass/Vol] 34.1 g/dL 32-36 [facility] No Panel InformationOrdered By: Dr. Hamilton on 07-13-2022 Estimated Creatinine Clearance Calc 99.49 ml/min [facility] Estimated GFR (MDRD) Amer 96 mL/min >60 [facility] Comment on above: GFR Calc Estimated GFR (MDRD) Non-Af Amer 80 mL/min >60 [facility] Comment on above: Non- GFR Calc Platelets bldOrdered By: Dr. Hamilton on 07-13-2022 Platelets (Bld) [#/Vol] 206 10*3/uL 150-450 [facility] Serum or plasma calcium hafsa urement (mass/volume)Ordered By: Dr. Hamilton on 07-13-2022 Calcium [Mass/Vol] 8.7 mg/dL 8.5-10.[address] [facility] Serum or plasma creatinine m easurement (mass/volume)Ordered By: Dr. Hamilton on 07-13-2022 Creatinine [Mass/Vol] 1.03 mg/dL 0.70-1.30 [facility] Comment on above: The validity of the calculated GFR & GFRAA in patients over 70 years has not been determined. Clinical correlation is essential. Serum or plasma urea nitroge n measurement (mass/volume)Ordered By: Dr. Hamilton on 07-13-2022 Urea nitrogen [Mass/Vol] 16 mg/dL 7-18 [facility] Thin prep Papanicolaou smear with manual screeningOrdered By: Dr. Hamilton on 07-13-2022 Thin prep Papanicolaou smear with manual screening 5 5-15 [facility] Basophil percentageon 2022 Basophil percentage < 0.9 mg/dL 0.70-1.30 [facility] No Panel Informationon 07-06 Bedside Estimated GFR (eGFR) > 60 mL/min >60 [facility] Established Visit (Otolaryng ology)on 03-10-2020 Established Visit (Otolaryngology) Diagnoses/Problems Acoustic neuroma (225.1) (D33.3) Imbalance (781.2) (R26.89) Bilateral sensorineural hearing loss (389.18) (H90.3) Tinnitus (388.30) (H93.19) Headache (784.0) (R51.9) Orders Physical Therapy - Vestibular Referral Evaluation and Treatment Evaluate AND Treat Status: Hold For - Scheduling,Retrospec tive By Protocol Authorization Requested for: [id number] ENG - Electronystagmograph y; Status:Active; Requested for:[id number]; IO Vestibular Evoked Myogenic Potential; Status:Active - Perform Order; Requested for:[id number]; Provider Impressions 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 and Face Inspection of head and face: [...] Mar 11 2020 11:30AM EST (Author) Normal [employer] Established Visit (Otolaryng ology)on 02-18-2020 Established Visit [...] Recorded: 18Feb2020 02:57PM Height6 ft 4 in Eumixc727 lb BMI Pvfckjtoqu07.08 BSA Calculated2.56 Tobacco Useb) No Fall Screeninga) No falls within the last year 'Scores and Scales' Signatures Electronically signed by : Angel Amaya MD; Feb 18 2020 3:35PM EST (Author) [facility] Vital Signs Date Time Vital Sign Value Performing Clinician Facility 08-12-2024 14:02-0400 Body mass index (BMI) [Ratio] 36.27 kg/m2 Laurie SCHUSTER-C Work Phone: [facility] 08-12-2024 14:02-0400 Body temperature 97.39 [degF] Laurie SCHUSTER-C Work Phone: [facility] 08-12-2024 14:02-0400 Body weight 135.17 kg Laurie SCHUSTER-C Work Phone: [facility] 08-12-2024 14:02-0400 Diastolic blood pressure 74 mm[Hg] Laurie SCHUSTER-C Work Phone: [facility] 08-12-2024 14:02-0400 Heart rate 73 /min Laurie SCHUSTER-C Work Phone: [facility] 08-12-2024 14:02-0400 Respiratory rate 16 /min Laurie SCHUSTER-C Work Phone: [facility] 08-12-2024 14:02-0400 SaO2% (BldA) [Mass fraction] 95 % Laurie SCHUSTER-C Work Phone: [facility] 08-12-2024 14:02-0400 Systolic blood pressure 134 mm[Hg] Laurie SCHUSTER-C Work Phone: [facility] 07-13-2023 14:34-0400 Body height 193 cm Tiffany Baird MD, PhD Work Phone: [facility] 07-13-2023 14:34-0400 Body mass index (BMI) [Ratio] 35.06 kg/m2 Tiffany Baird MD, PhD Work Phone: [facility] 07-13-2023 14:34-0400 Body weight 130.64 kg Tiffany Baird MD, PhD Work Phone: [facility] 07-13-2023 12:18-0400 Body mass index (BMI) [Ratio] 34.89 kg/m2 Lynn Debora PA-C Work Phone: [facility] 07-13-2023 12:18-0400 Body temperature 97.2 [degF] Lynn Debora PA-C Work Phone: [facility] 07-13-2023 12:18-0400 Body weight 130 kg Lynn Debora PA-C Work Phone: [facility] 07-13-2023 12:18-0400 Diastolic blood pressure 84 mm[Hg] Lynn Debora PA-C Work Phone: [facility] 07-13-2023 12:18-0400 Heart rate 68 /min Lynn Debora PA-C Work Phone: [facility] 07-13-2023 12:18-0400 Respiratory rate 16 /min Lynn Debora PA-C Work Phone: [facility] 07-13-2023 12:18-0400 SaO2% (BldA) [Mass fraction] 96 % Lynn Debora PA-C Work Phone: [facility] 07-13-2023 12:18-0400 Systolic blood pressure 155 mm[Hg] Lynn Debora PA-C Work Phone: [facility] 02-24-2023 14:32-0500 Body height 193 cm Tiffany Baird MD, PhD Work Phone: [facility] 02-24-2023 14:32-0500 Body mass index (BMI) [Ratio] 33.47 kg/m2 Tiffany Baird MD, PhD Work Phone: [facility] 02-24-2023 14:32-0500 Body weight 124.74 kg Tiffany Baird MD, PhD Work Phone: [facility] 02-24-2023 14:32-0500 Respiratory rate 15 /min Tiffany Baird MD, PhD Work Phone: [facility] 12-13-2022 07:02-0500 Body temperature 98.5 [degF] Dr. Heidi Rodriguez Work Phone: [facility] 12-13-2022 07:02-0500 Diastolic blood pressure 82 mm[Hg] Dr. Heidi Rodriguez Work Phone: [facility] 12-13-2022 07:02-0500 Heart rate 79 /min Dr. Heidi Rodriguez Work Phone: [facility] 12-13-2022 07:02-0500 Respiratory rate 14 /min Dr. Heidi Rodriguez Work Phone: [facility] 12-13-2022 07:02-0500 SaO2% (BldA) [Mass fraction] 94 % Dr. Heidi Rodriguez Work Phone: [facility] 12-13-2022 07:02-0500 Systolic blood pressure 134 mm[Hg] Dr. Heidi Rodriguez Work Phone: [facility] 08-18-2022 10:45-0400 Body temperature 96.9 [degF] Dr. Heidi Rodriguez Work Phone: [facility] 08-18-2022 10:45-0400 Diastolic blood pressure 79 mm[Hg] Dr. Heidi Rodriguez Work Phone: [facility] 08-18-2022 10:45-0400 Heart rate 68 /min Dr. Heidi Rodriguez Work Phone: [facility] 08-18-2022 10:45-0400 Respiratory rate 18 /min Dr. Heidi Rodriguez Work Phone: [facility] 08-18-2022 10:45-0400 SaO2% (BldA) [Mass fraction] 97 % Dr. Heidi Rodriguez Work Phone: [facility] 08-18-2022 10:45-0400 Systolic blood pressure 136 mm[Hg] Dr. Heidi Rodriguez Work Phone: [facility] 08-18-2022 06:39-0400 Body height 193.[address] Heidi Rodriguez Work Phone: [facility] 08-18-2022 06:39-0400 Body mass index (BMI) [Ratio] 33.3 kg/m2 Dr. Heidi Rodriguez Work Phone: [facility] 08-18-2022 06:39-0400 Body weight [address] Heidi Rodriguez Work Phone: [facility] 07-19-2022 09:28-0400 Body mass index (BMI) [Ratio] 33.8 kg/m2 Dr. Heidi Rodriguez Work Phone: [facility] 07-19-2022 09:28-0400 Body temperature 97.8 [degF] Dr. Heidi Rodriguez Work Phone: [facility] 07-19-2022 09:28-0400 Body weight 126.[address] Heidi Rodriguez Work Phone: [facility] 07-19-2022 09:28-0400 Diastolic blood pressure 82 mm[Hg] Dr. Heidi Rodriguez Work Phone: [facility] 07-19-2022 09:28-0400 Heart rate 73 /min Dr. Heidi Rodriguez Work Phone: [facility] 07-19-2022 09:28-0400 Respiratory rate 18 /min Dr. Heidi Rodriguez Work Phone: [facility] 07-19-2022 09:28-0400 SaO2% (BldA) [Mass fraction] 98 % Dr. Heidi Rodriguez Work Phone: [facility] 07-19-2022 09:28-0400 Systolic blood pressure 135 mm[Hg] Dr. Heidi Rodriguez Work Phone: [facility] 07-13-2022 14:20-0400 Respiratory rate 16 /min [facility] 07-13-2022 12:22-0400 Body height 193.04 cm [facility] 07-13-2022 12:22-0400 Body mass index (BMI) [Ratio] 34.2 kg/m2 [facility] 07-13-2022 12:22-0400 Body temperature 98.4 [degF] [facility] 07-13-2022 12:22-0400 Body weight 127.45 kg [facility] 07-13-2022 12:22-0400 Diastolic blood pressure 103 mm[Hg] [facility] 07-13-2022 12:22-0400 Heart rate 71 /min [facility] 07-13-2022 12:22-0400 SaO2% (BldA) [Mass fraction] 96 % [facility] 07-13-2022 12:22-0400 Systolic blood pressure 181 mm[Hg] [facility] 07-08-2022 14:25-0400 Body mass index (BMI) [Ratio] 34.2 kg/m2 Lamberto Stockton MD Work Phone: [facility] 07-08-2022 14:25-0400 Body temperature 98.6 [degF] Lamberto Stockton MD Work Phone: [facility] 07-08-2022 14:25-0400 Body weight 127.46 kg Lamberto Stockton MD Work Phone: [facility] 07-08-2022 14:25-0400 Diastolic blood pressure 84 mm[Hg] Lamberto Stockton MD Work Phone: [facility] 07-08-2022 14:25-0400 Heart rate 67 /min Lamberto Stockton MD Work Phone: [facility] 07-08-2022 14:25-0400 Respiratory rate 18 /min Lamberto Stockton MD Work Phone: [facility] 07-08-2022 14:25-0400 SaO2% (BldA) [Mass fraction] 96 % Lamberto Stockton MD Work Phone: [facility] 07-08-2022 14:25-0400 Systolic blood pressure 142 mm[Hg] Lamberto Stockton MD Work Phone: [facility] 06-17-2021 14:55-0400 Body mass index (BMI) [Ratio] 33.73 kg/m2 Violetta Travis BICYCLE ASSEMBLER-REC THERAPIST Work Phone: [facility] 06-17-2021 14:55-0400 Body temperature 98.01 [degF] Violetta Travis BICYCLE ASSEMBLER-REC THERAPIST Work Phone: [facility] 06-17-2021 14:55-0400 Body weight 125.69 kg Violetta Shawburn BICYCLE ASSEMBLER-REC THERAPIST Work Phone: [facility] 06-17-2021 14:55-0400 Diastolic blood pressure 88 mm[Hg] Violetta Shawburn BICYCLE ASSEMBLER-REC THERAPIST Work Phone: [facility] 06-17-2021 14:55-0400 Heart rate 78 /min Violetta Shawburn BICYCLE ASSEMBLER-REC THERAPIST Work Phone: [facility] 06-17-2021 14:55-0400 Respiratory rate 18 /min Violetta Shawburn BICYCLE ASSEMBLER-REC THERAPIST Work Phone: [facility] 06-17-2021 14:55-0400 SaO2% (BldA) [Mass fraction] 96 % Violetta Travis BICYCLE ASSEMBLER-REC THERAPIST Work Phone: [facility] 06-17-2021 14:55-0400 Systolic blood pressure 147 mm[Hg] Violetta Travis BICYCLE ASSEMBLER-REC THERAPIST Work Phone: [facility] 03-10-2020 17:29-0500 BMI (Body Mass Index) 33.9 kg/m2 Tasha Marshallk MG-Otolary ngology- [place] Work Phone: 03-10-2020 17:29-0500 Body Temperature 96.5 [degF] Tasha Marshallk MG-Otolaryngolo gy- [place] Work Phone: 03-10-2020 17:29-0500 Body weight 126.33 kg Tasha Bielak MG-Otolaryngolog y- [place] Work Phone: 03-10-2020 17:29-0500 BSA (Body Surface Area) 2.55 m2 Tasha Bielak MG-Otolaryngology- [place] Work Phone: 03-10-2020 17:29-0500 Height 193.04 cm Tasha Bimichelak MG-Otolaryngolog y- [place] Work Phone: Encounters Encounter Date Encounter Type Care Provider Facility Start: 11-13-2024 ambulatory [facility] Facility: [facility] Start: 08-12-2024 End: 08-12-2024 Office outpatient visit 15 minutes Laurie Dubois PA-C Work Phone: [facility] Comment on above: Schwannoma (Primary Dx) Start: 08-12-2024 ambulatory LAURIE Whitlock ty:ALAN Start: 07-19-2024 ambulatory TE BURKS Facility:[facility] Start: 12-29-2023 End: 12-29-2023 ambulatory [facility] Facility:[facility] Start: 12-26-2023 End: 12-27-2023 ambulatory [facility] Facility:[facility] Start: 12-26-2023 End: 12-26-2023 ambulatory [facility] Facility:[facility] Start: 12-25-2023 End: 12-25-2023 Emergency department patient visit Heidi Rodriguez Facility:[facility] Start: 07-13-2023 End: 07-13-2023 Office outpatient visit 25 minutes Tiffany Baird MD, PhD Work Phone: [facility] [place] Comment on above: Left acoustic neurom a (Primary Dx) Start: 07-13-2023 End: 07-13-2023 Office outpatient visit 15 minutes Lamberto Stockton MD Work Phone: [facility] Comment on above: Left-sided acoustic neuroma (Primary Dx) Start: 05-19-2023 End: 05-19-2023 ambulatory [facility] Work Phone: Start: 05-19-2023 End: 05-19-2023 Patient encounter procedure [facility] Work Phone: Start: 03-01-2023 End: 03-01-[address] Heidi Rodriguez Work Phone: [facility] Work Phone: Start: 03-01-2023 End: 03-01-[address] Heidi Rodriguez Work Phone: [facility]Physical Therapy Work Phone: Start: 02-24-2023 End: 02-24-2023 Office outpatient new 45 minutes Tiffany Baird MD, PhD Work Phone: [facility] Comment on above: Left acoustic neurom a (Primary Dx) Start: 02-24-2023 End: 02-24-2023 Patient encounter procedure Nader Lazaro Rex Work Phone: [facility] Comment on above: Sensorineural hearin g loss, bilateral (Primary Dx); Impaired auditory discrimination, left; Left acoustic neuroma; Vertigo Start: 12-13-2022 End: 12-13-[address] Heidi Rodriguez Work Phone: [facility] Work Phone: Start: 10-11-2022 End: 10-11-[address] Heidi Rodriguez Work Phone: [facility] Work Phone: Start: 10-11-2022 End: 10-11-[address] Heidi Rodriguez Work Phone: [facility] Start: 10-06-2022 End: 10-06-[address] Heidi Rodriguez Work Phone: [facility] Work Phone: Start: 10-06-2022 End: 10-06-[address] Heidi Rodriguez Work Phone: [facility] Start: 09-01-2022 End: 09-01-[address] Heidi Rodriguez Work Phone: [facility] Work Phone: Start: 08-18-2022 Non-patient / Non-visit Dr. Monisha Rodriguez Work Phone: [facility] Start: 08-18-2022 End: 08-18-2022 Admission to same day surgery center Dr. Heidi Rodriguez Work Phone: [facility] Start: 08-18-2022 End: 08-18-[address] Heidi Rodriguez Work Phone: [facility] Work Phone: Start: 08-10-2022 End: 08-10-2022 Non-patient / Non-visit Dr. Heidi Rodriguez Work Phone: [facility] Work Phone: Start: 07-19-2022 End: 07-19-[address] Heidi Rodriguez Work Phone: [facility] Work Phone: Start: 07-13-2022 End: 07-13-2022 Emergency department patient visit [facility] Start: 07-08-2022 End: 07-08-2022 Office outpatient new 45 minutes Lynn Cazares PAC Work Phone: [facility] Comment on above: Schwannoma (Primary Dx) Start: 07-06-2022 End: 07-06-[address] Heidi Rodriguez Work Phone: [facility] Work Phone: Start: 07-06-2022 End: 07-06-2022 Patient encounter procedure [facility] Start: 02-16-2022 Registered Referred [facility] Start: 11-08-2021 End: 11-08-2021 ambulatory [facility] Work Phone: Start: 11-08-2021 End: 11-08-2021 Discharged Recurring [facility]Occupational Therapy Start: 06-17-2021 End: 06-17-2021 Office outpatient visit 15 minutes Violetta Travis BICYCLE ASSEMBLER-REC THERAPIST Work Phone: [facility] Comment on above: Left acoustic neurom a (Primary Dx); Lesion of brain Start: 06-14-2021 End: 06-14-2021 Patient encounter procedure [facility] Start: 03-10-2020 Patient encounter procedure Tasha RIVERSGF-Tvpvdtrodgxzsw-Ezkss shanae Work Phone: Start: 02-18-2020 Patient encounter procedure Tasha RIVERSDO-Eumpgztkrqwkmv-Ttexw shanae Work Phone: Start: 03-05-2019 Patient encounter procedure Tasha RIVERSWV-Zzhbckprwijmji-Pwjcy shanae Work Phone: Procedures Date Procedure Procedure Detail Performing Clinician Start: 08-12-2024 Follow-up visit Follow-up LAURIE DUBOIS Start: 02-24-2023 AUDIOGRAM Nader Patelb AuD Work Phone: Start: 08-18-[address] Heidi Rodriguez Work Phone: Start: 07-13-2022 Computed tomography of abdomen and pelvis with intravenous contrast Start: 07-06-2022 MRI of brain with contrast Start: 06-14-2021 MRI of brain with contrast Start: 03-10-2020 Follow-up visit Start: 03-10-2020 Electronystagmography with vertical electrodes Tasha Villegas Start: 03-10-2020 IO Vestibular Evoked Myogenic Potential Tasha Villegas History of Knee Surgery Karime Villegas Plan of Treatment Date Care Activity Detail Author Start: 08-12-2025 End: 08-12-2025 MR Internal auditory canal WO and W contrast IV MRI INTERNAL AUDITORY CANAL WITH AND WITHOUT CONTRAST Imaging Routine Schwannoma Expected: 08/12/2025, Expires: 08/12/2025 [facility] Comment on above: Expected: 08/12/2025 , Expires: 08/12/2025 Start: 10-07-2024 Influenza vaccination INFLUENZ A VACCINE (#1) [facility] Start: 10-08-2023 COVID-19 VACCINE ( season) COVID-19 VACCINE () [facility] Start: 07-13-2023 End: 2024 MR Internal auditory canal WO and W contrast IV MRI INTERNAL AUDITORY CANAL WITH AND WITHOUT CONTRAST Imaging Routine Left-sided acoustic neuroma Expected: 07/13/2023, Expires: 2024 [facility] Comment on above: Expected: 07/13/2023 , Expires: 2024 Start: 07-13-2023 End: 07-13-2023 Patient encounter procedure [facility] Department of Neurological Surgery Start: 07-09-2023 End: 07-09-2023 MR Internal auditory canal WO and W contrast IV MRI INTERNAL AUDITORY CANAL WITH AND WITHOUT CONTRAST Imaging Routine Schwannoma Expected: 07/09/2023 (Approximate), Expires: 07/09/2023 [facility] Comment on above: Expected: 07/09/2023 (Approximate), Expires: 07/09/2023 Start: 10-07-2022 COVID-19 VACCINE ( season) COVID-19 VACCINE () [facility] Start: 08-18-2022 Anesthesia hernia repair upper abdomen nos ANESTH REPAIR OF HERNIA [facility] Start: 08-18-2022 RPR AA HRN 1ST < 3 C M RDC RPR AA HRN 1ST < 3 CM RDC [facility] Start: 08-18-2022 Patient discharge [facility] Start: 07-11-2022 Prostate specific antigen measurement PROSTATE CANCER SCREENING DISCUSSION [facility] Start: 06-23-2022 End: 06-23-2022 Patient encounter procedure 06/23/2022 Office Visit Neurologic Surgery Violetta Travis, BICYCLE ASSEMBLER-REC THERAPIST [address] [place] [address] [facility] Department of Neurological Surgery Start: 06-17-2021 End: 06-17-2022 MR Brain WO and W contrast IV MRI BRAIN WITH AND WITHOUT CONTRAST Imaging Routine Lesion of brain Expected: 06/17/2021, Expires: 06/17/2022 [facility] Comment on above: Expected: 06/17/2021 , Expires: 06/17/2022 Start: 07-11-2017 Pneumococcal vaccination PNEUMOCOCCAL VACCINE SERIES (1 of 1 - PCV) [facility] Start: 07-11-2017 Prostate specific antigen measurement PROSTATE CANCER SCREENING DISCUSSION [facility] Start: 07-11-2017 Zoster vaccine hzv live for subcutaneous use ZOSTER (SHINGLES) VACCINE (1 of 2) [facility] Start: 07-11-2012 Colonoscopy COLORECTAL CAN CER SCREENING DISCUSSION [facility] Start: 07-11-2012 Screening for malignant neoplasm of colon COLORECTAL CANCER SCREENING DISCUSSION [facility] Start: 2007 Fasting lipid profile LIPID SCREENIN G [facility] Start: 2007 Lipid panel LIPID SCREENING [facility] Start: 07-11-1986 Hepatitis B vaccination HEP B VACCINE (1 of 3 - 19+ 3-dose series) [facility] Start: 07-11-1986 Third diphtheria, tetanus and acellular pertussis (DTaP) vaccination TDAP (ADULT) [facility] Start: 07-11-1986 Zoster vaccine hzv live for subcutaneous use ZOSTER (SHINGLES) VACCINE (1 of 2) [facility] Start: 07-11-1985 Tetanus vaccination TETANUS [facility] Start: 07-11-1982 HIV screening HIV SCREENING DISCUSSION [facility] Start: 07-11-1973 PNEUMOCOCCAL VACCINE SERIES (1 - PCV) PNEUMOCOCCAL VACCINE SERIES (1 - PCV) [facility] Start: 07-11-1972 COVID-19 VACCINE (#1) COVID-19 VACCI NE (#1) [facility] Start: 01-11-1968 COVID-19 VACCINE (#1) COVID-19 VACCI NE (#1) [facility] Start: 1967 Hepatitis B vaccination HEP B VACCINE (1 of 3 - 3-dose series) [facility] Start: 1967 Hepatitis C antibody , confirmatory test HEPATITIS C VIRUS SCREENING [facility] Start: 1967 Hepatitis C screening HEPATITI S C VIRUS SCREENING [facility] Start: 1967 Tetanus vaccination TETANUS [facility] Bilirubin measuremen t, urine [facility] Binocular microscopy separate dx procedure MT BINOCULAR MICROSCOPY SEPARATE DX PROCEDURE MT Charge Routine Left acoustic neuroma Ordered: 07/13/2023 [facility] Comment on above: Ordered: 07/13/2023 Hemoglobin [Presence ] in Urine [facility] Measurement of keton es in urine using dipstick [facility] Patient Education ED Hernia (Adult) [facility] Work Phone: Patient referral [facility] Work Phone: pH of Urine [facility] Specific gravity of Urine [facility] Urine dipstick for glucose [facility] Urine dipstick for leukocyte esterase [facility] Urine dipstick for nitrite [facility] Urine dipstick for protein [facility] Urine examination [facility] Urobilinogen [Presence] in Urine [facility] MG-Otolaryngolo gy-Bob jacobo Work Phone: NEGATED: Highlighted row has been ruled out! Planned Goals not documented MB-Keshakvhoavzkg-Dvk [facility]lake Work Phone: Immunizations Immunization Date Immunization Notes Care Provider Cesar mabry 11-23-2023 influenza virus vaccine, unspecified formulation Laurie Dubois PA-C Work Phone: [facility] 12-26-2022 influenza, injectabl e, quadrivalent, preservative free Dr. Heidi Rodriguez Work Phone: [facility] 12-06-2021 influenza, injectabl e, quadrivalent, preservative free Dr. Heidi Rodriguez Work Phone: [facility] 12-06-2021 influenza, seasonal, injectable [facility] 12-22-2020 Covid (Moderna) [facility] 11-19-2020 influenza, injectabl e, quadrivalent, preservative free Dr. Heidi Rodriguez Work Phone: [facility] 11-19-2020 influenza, seasonal, injectable [facility] 03-04-2020 Covid (Moderna) [facility] 02-05-2020 Covid (Moderna) [facility] 11-05-2019 influenza, injectabl e, quadrivalent, preservative free Dr. Heidi Rodriguez Work Phone: [facility] 11-05-2019 influenza, seasonal, injectable [facility] 12-10-2018 influenza, injectabl e, quadrivalent, preservative free Dr. Heidi Rodirguez Work Phone: [facility] 12-10-2018 influenza, seasonal, injectable [facility] 12-11-2017 influenza, injectabl e, quadrivalent, preservative free Dr. Heidi Rodriguez Work Phone: [facility] 12-11-2017 influenza, seasonal, injectable [facility] 11-02-2016 influenza, injectabl e, quadrivalent, preservative free Dr. Heidi Rodriguez Work Phone: [facility] 11-02-2016 influenza, seasonal, injectable [facility] 11-05-2015 influenza, injectabl e, quadrivalent, preservative free Dr. Heidi Rodriguez Work Phone: [facility] 11-05-2015 influenza, seasonal, injectable [facility] 11-06-2014 influenza, injectabl e, quadrivalent, preservative free Dr. Heidi Rodriguez Work Phone: [facility] 11-06-2014 influenza, seasonal, injectable [facility] 11-27-2013 influenza, injectabl e, quadrivalent, preservative free Dr. Heidi Rodriguez Work Phone: [facility] 11-27-2013 influenza, seasonal, injectable [facility] 06-26-2013 hepatitis B vaccine, pediatric or pediatric/adolescent dosage [facility] Payers Date Payer Category Payer Self-pay [id number] 2023 Unknown [id number] 2022 Managed Care (unspecified) [employer] [id number] 2022 Private Health Insurance [employer] [id number] 2022-Present [address] [place] [address] [id number] 2022 Unknown [id number] 2018 Unknown [facility] ACC[facility] [id number] 2018-Present [address] [address] [place] [address] [id number] 2013 Unknown [id number] 1967 Unknown [id number] Unknown [id number] Unknown [id number] Unknown [id number] Unknown [id number] Unknown [id number] Unknown [id number] Unknown [id number] Social History Date Type Detail Facility Start: 04-02-2020 End: 02-24-2023 Tobacco smoking status NHIS Never smoked tobacco [facility] Start: 04-02-2020 End: 02-24-2023 Tobacco use and exposure Former smokeless tobacco user [facility] Start: 12-10-2020 End: 08-12-2024 Alcohol intake Current drinker of alcohol (finding) [facility] Start: 04-02-2020 History SDOH Alcohol Comment socially [facility] Start: 1965 Sex Assigned At Not on file [facility] Start: 12-25-2018 End: 12-13-2022 Tobacco smoking status NHIS Unknown if ever smoked [facility] Start: 11-02-[address] Non-[address] [facility] Start: 1965 Sex Assigned At Male [facility] Start: 02-24-2023 End: 08-12-2024 History of Social function [facility] Start: 02-24-2023 End: 08-12-2024 Tobacco use panel [facility] Adolescent depressio n screening assessment 0 [facility] Start: 03-24-2020 Sex Male (finding) [facility] NEGATED: Highlighted row - - EE-Yrjargxyosinfu-Ye [place]lake Work Phone: Goals Date Patient Goal Desired Activity /State Functional Status Date Assessment Result Facility NEGATED: Highlighted row Functional performance Functional status health issues are not documented Disease MY-Mftqbeaadwsbcm-S [employer] Work Phone: Mental Status Date Assessment Result Facility 08-18-2022 Cognitive function Level Of Cons ciousness Follows Commands;Drowsy [facility] Work Phone: NEGATED: Highlighted row Cognitive function [Interpretation] Cognitive status health issues are not documented Disease NF-Grtddsnaqboozc-P [employer] Work Phone: Clinical Notes 06-17-2021 to 08-12-2024 Laurie Dubois PA-C - 08/12/2024 2:00 PM EDTPatient Naima Mccann - 07/13/2023 2:45 PM Hosea Baird MD, PhD - 07/13/2023 2:45 PM Yaneth Cazares PA-C - 07/13/2023 12:00 PM EDT Note Date & Type Note Facility 08-12-2024 History of Presen t illness Narrative [facility], PITUITARY, MINIMALLY INVASIVE CRANIAL & NEUROSURGICAL ONCOLOGY CLINIC Dr. Lamberto Stockton MD [employer], Department of Neurosurgery [address] [place] [address] ESTABLISHED PATIENT VISIT NOTES SUMMARY OF CARE DIAGNOSIS: Left- sided vestibular schwannoma SURGERIES RELATED TO CARE: none LAST CLINIC VISIT/ PLAN OF CARE: 07.13.23 Mr Gorge Vogel is a 58 yo [...] were reviewed and discussed with Dr. Stockton. MEDICAL/ SURGICAL HISTORY Past Medical History: Diagnosis [...] Brother acoustic neuroma No known problems Brother ALLERGIES/ MEDICATIONS Allergies Allergen Reactions Bee Pollen [...] PO Take 1 tablet by mouth daily. [place] (Patient not taking: Reported on 02/24/2023) diphenhydrAMINE 50 MG capsule Take 1 capsule by mouth once for 1 dose. One hour prior to MRI 1 capsule 0 diphenhydrAMINE HCl, Sleep, 25 MG Tab Dispersible Take 1 tablet by mouth. (Patient not taking: Reported on 02/24/2023) Fexofenadine (Jesusita Allergy) 180 MG tablet Take 1 tablet by mouth daily. Lisinopril 10 MG tablet Take 1 tablet by mouth daily. predniSONE 50 MG tablet Take 1 tablet 13 hours, 7 hours and 1 hour prior to MRI 3 tablet 0 No current facility-administered medications for this visit. IMAGING RECENT IMAGING: Imaging at [facility] 07/19/2024. Radiology report states the following: No significant change in the size or appearance of the previously described 1.09 cm intensely enhancing soft tissue nodule and the origin of the left 7th and 8th cranial nerves at the cerebellar pontine angle slightly extending into the opening of the internal auditory canal which is consistent with a vestibular schwannoma. The nodule does not infiltrate the bony or brain parenchymal structures in the surrounding regions. No edema is seen in the underlying brain parenchyma. I agree with this interpretation of this imaging study. LABS No labs obtained or reviewed in association with today's visit. . CURRENT CLINIC VISIT EVALUATION, FINDINGS AND PLAN OF CARE REVIEW OF SYSTEMS: Patient denies/has absence of all of the following unless marked in bold Review of Systems Constitutional: Negative for malaise or fatigue HENT: Chronic left ear hearing loss. Negative for worsened left or new right ear hearing loss Eyes: Negative for blurred vision, double vision, or visual field deficits Neurological: Chronic headaches. Chronic poor balance, stable. Negative for sensory change, speech changes, focal weakness, or seizures ASSESSMENT AND PHYSICAL EXAM: Smoking Status Never Physical Exam Constitutional: well-developed, well-nourished, and in no distress Head: Normocephalic, and atraumatic Eyes: Conjunctivae normal. Further exam listed below. Neck: Grossly normal range of motion. Pulm/Chest: Effort normal. No respiratory distress MSK: Grossly normal range of motion. No dependent edema in arms/legs. Psychiatric: Mood and affect normal during conversation. Patient demonstrated understanding of what was discussed during the office visit. Neurologic Exam GCS 15 EOM grossly intact, no nystagmus at rest Facies symmetric with appropriate movement bilaterally Hearing grossly intact in right ear. Greatly reduced in left ear. Motor Exam Strength Strength grossly appropriate throughout. Gait, Coordination, and Reflexes Normal gait Tandem gait with great difficulty. INTERVAL HISTORY AND PLAN OF CARE: Gorge Vogel is a 59 y.o. male that returns to [facility] for a follow-up clinic visit related to a known history of Left- sided vestibular schwannoma. He has previously undergone gamma knife radiation treatment for this in 2020, and we are currently observing this lesion with serial imaging to assess for any progression of his schwannoma. Currently, he reports he is overall doing very well. He notes that he has chronic left ear hearing loss that is near complete. This is overall stable at this time. He notes long-standing stable poor balance. He also note chronic headaches that he feels may be associated with his neck pain. The patient denies vision changes, unsteady gait, muscle weakness, or speech deficits. I personally reviewed and interpreted the patient's recent MRI, and I reviewed the images with the patient. We discussed the following plan of care: Plan: - Continued observation is recommended. No surgical considerations are indicated at this time. - We discussed obtaining an MRI AIC with and without contrast to be completed in 1 year(s) for recommended serial monitoring of the patient's schwannoma to assess for any progression. - The patient prefers to have his imaging done locally. In the past he has called to request the order be sent to his facility closer to the time of actual scheduling. I have placed an order in preparation for this. - If imaging is stable again next year we will likely extend the observation period to 2 years. - We discussed an [facility] neurolog[facility] referral for his headaches. He notes that for now he will look to work with local providers. He was encouraged to call for a referral at any time as desired. - RTC in 1 year with [facility]AD[facility] to discuss results of imaging. Follow up can be virtual if desired. - We discussed that the patient should return to the office sooner for any new or worsening neurological symptoms. They were encouraged to reach out to us by phone or MyChart for any questions or concerns at any time. - All questions were answered to the patient's satisfaction. The patient is in agreement with this plan. documented in this encounter [facility] 08-12-2024 Instructions Kait Pelayo RN - 08/12/2024 2:00 PM EDT Images from the original note were not included. Welcome to the [facility] Your Neurosurgery Team: Dr. Lamberto Stockton - Neurosurgeon Lynn Pelayo - Primary nurse. There will be additional staff to assist in your care. Contact Information: - after hours or holidays, ask for neurosurgeon penetration tester. It is important that you have a primary care physician (PCP). If you do not have a PCP, establish care with one in your area or at The [facility] - Call [phone], to make an appointment. Please bring a medication list with you at every visit. Please allow at least 48 hours for Prescription Refill transactions. Please allow 10 business days for completion of FMLA and other disability paperwork. [employer] ([employer])- is a communication tool used through the [...] If you have urgent needs, please call [phone]. There is an [employer] braden for smart phones/tablets. Search MainOne at your braden store. Follow the prompts to set up the Gu[employer] for the [facility] then select [facility] format. Through this BRADEN, you will [...] our Patient Experience Advocate, Estefania Gipson at [phone]. documented in this encounter [facility] 07-13-2023 History of Presen t illness Narrative Patient has verified full name and . Images from the original note were not included. DIVISION OF OTOLOGY, NEUROTOLOGY AND CRANIAL BASE SURGERY ESTABLISHED PATIENT CONSULTATION Date: 07/13/2023 Patient: GORGE VOGEL Attending Physician: Tiffany Baird MD PhD CC: Chief Complaint Patient presents with Follow-up Hearing Loss Hearing loss in left ear INTERVAL HPI: No new issues. Had repeat MRI done. HPI: Mr. Gorge Vogel is a 58 y.o. male referred by Heidi Rodriguez DO to re-establish care for vestibular schwannoma. [...] Take 1 tablet by mouth daily. [employer]es (Patient not taking: Reported on 02/24/2023) Cetirizine [...] recall Physical Exam: Ht 1.93 m (6' 4) Wt 130.6 kg (288 lb) BMI 35.06 [...] Same Procedure: Bilateral Otologic Binocular Microscopy Surgeon: Mihir Anesthesia: None Indications and Consent: The patient [...] MRI internal auditory canal in 1 year Tiffany Baird MD PhD Gas Dispenser Otology, Neurotology and Cranial Base Surgery Department of Otolaryngology [facility] documented in this encounter [facility] 07-13-2023 History of Presen t illness Narrative [facility] SKULL BASE, PITUITARY, MINIMALLY INVASIVE CRANIAL & NEUROSURGICAL ONCOLOGY CLINIC Dr. Lamberto Stockton MD Gas Dispenser, Department of Neurosurgery [address] [place] [address] ESTABLISHED PATIENT VISIT NOTES SUMMARY OF CARE DIAGNOSIS: Left- sided vestibular schwannoma SURGERIES RELATED TO CARE: None. LAST CLINIC VISIT/ PLAN OF CARE: 07.08.22 (Bryan) Gorge Vogel is a 55 y.o. male that presents to [facility] for follow [...] the plan. Plan: 1) OTOLOGY - YIN MIHIR 2) AUDIOGRAM 3) MRI IAC SURGICAL PATHOLOGY RESULTS: None. IMAGING RECENT IMAGING: Results Test Name Value Interpretation Reference Range Facility Brain W/WO Contrast on 06-27-2023 Brain W/WO Contrast [facility] Imaging Services [address] [place] [address] Brain W/WO Contrast MR#: [id number] Acct: [id number] Name: GORGE VOGEL Rep #: [id number] : 1965 M 57 From: Sage venegas MD PCP: Dr. Heidi Rodriguez, DO Status: REG CL Study: Brain W/WO Contrast Date of Exam: 06/27/23 Exam# [id number] Ordering Dr: LAMBERTO STOCKTON ADDENDUM by Dr. Sage Mendez MD on 06/28/23 at 0955 ADDENDUM [id number] Prior MRIs of the brain and internal [...] Revised 06/28/23 0955 Date cc: Dr. Heidi Rodriguez DO; LAMBERTO STOCKTON * Signed ADDENDUM by Dr. Sage Mendez MD on 06/28/23 at 0955 MRI/Brain W/WO Contrast IMPRESSION: No interval change in known left CPA/IAC benign appearing mass/vestibular schwannoma. Electronically Signed: Sage Mendez MD at 9:55 EDT , 06/28/23 1002 Date cc: Dr. Heidi Rodriguez DO; LAMBERTO STOCKTON * Signed [id number] STUDY: MRI BRAIN WITH AND WITHOUT CONTRAST [...] included)... LABS CBC No results found for: WBC, WBCCOUNT, WBCFETAL, HGB, HCT, PLATELET, MCV EDIF No results found for: RBCDISTRIBU, GRNLOCYT, LYMPHOCYT, MONOCYTELEC, EOSINOPHILS, BASOPHILS, GRNLOCTYABS, LYMPHOCYTABS, MONOSABSOLU, EOSINOPHLABS, BASOPHILSABS, PLATELET, MNPLATVOLME, MPV No results found for: SODIUM, POTASSIUM, CHLORIDE, CO2, BUN, CREATSERUM, GLUCOSE No results found for: PTT No results found for: ACTH, CORTISOL, GRWTHHORM, PROLACTIN, IGF1, FSH, FOLSTIMHME, LH, LHMANENTER, ADH, ESTROGENTOTA, MAGNESIUM No results found for: TESTOSTTTL, TESTOSTTOT, TESTOSTERONE . CURRENT CLINIC VISIT EVALUATION, FINDINGS [...] with Dr. Stockton. documented in this encounter [facility] 07-13-2023 Instructions Kait Pelayo RN - 07/13/2023 12:00 PM EDT Images from the original note were not included. Welcome to the [facility] Your Neurosurgery Team: Dr. Finn Stockton - Neurosurgeon Lynn Pelayo - Primary nurse. There will be additional staff to assist in your care. Contact Information: - after hours or holidays, ask for neurosurgeon penetration tester. It is important that you have a primary care physician (PCP). If you do not have a PCP, establish care with one in your area or at The [facility] - Call [phone], to make an appointment. Please bring a medication list with you at every visit. Please allow at least 48 hours for Prescription Refill transactions. Please allow 10 business days for completion of FMLA and other disability paperwork. [employer] ([employer])- is a communication tool used through the [...] If you have urgent needs, please call [phone]. There is an MainOne braden for smart phones/tablets. Search MainOne at your braden store. Follow the prompts to set up the GuzzMobile for the [facility] then select [facility] format. Through this BRADEN, you will be able to look at results, send messages and much more. Additionally, you can send pictures to providers. Go to message, tap attachments, and upload picture. Call 401/ go to the closest, local Emergency Department [...] our Patient Experience Advocate, Estefania Gipson at [phone]. documented in this encounter [facility] 03-17-2023 Discharge summary Note Date/Time March 17, 2023 10:42am [facility] [address] [place] [address] / REHABILITATION SERVICES DISCHARGE SUMMARY MR#: [id number] Acct: [id number] Name: GORGE VOGEL Rep #: [id number] : 1965 57 From: Veronica Mckeon Referring Dr.: Dr. Heidi Rodriguez DO Status: REG RCR Insurance: [employer]/[facility] SELF PAY INSURANCE Discharge Summary D/C summary: It has been my pleasure to treat GORGE VOGEL referred by Dr. Heidi Rodriguez DO, with the diagnosis of Dizziness and giddiness for a total of 13 visit(s). Discharge Date: 03/01/23 Please see the following information for a summary of their discharge status. Subjective Subjective: Pt doing well overall Overall Improvement % Improvement: 80 Objective Objective/Function: CATSIB composite score with feet shoulder width apart was 2.82 (12% impairment) CATSIB with feet together composite was 3,18 (20% impairment) +++Most trouble was eyes open on foam surface+++ Limits of Stability.. pt struggled to weight shift FW out of all the directions Motor Control Test: was within normal limits which shows good dynamic control with sway. Copied over from 02-22-23 CATSIB 120/120 ( little wobbly on EC with foam but able to correct and compensate) Walking with horizontal and vertical head turns with very slight occ veering ...much improved Walking BW pt had no LOB doing this today Goals Goal 1:: I HEP Goal Progress: Goal Met Goal 2:: Increase balance (FGA at eval was 12) Goal Progress: Progressing Goal 3:: Increase sensory aspect of balance (CATSIB score was 50 at initial eval) Goal Progress: Goal Met Goal 4:: Be able to complete smooth pursuit in standing both horizontal and vertical X 1 min Goal Progress: Goal Met Goal 5:: Be able to walk back to the treatment rooms with walking, talking and turning his head without veering or feeling dizzy Goal Progress: Progressing Plan Plan: DC PT D/C Information Discharge Comments: DC PT to indep HEP d/c sentence: If there are questions or concerns regarding this patient's physical therapy, please feel free to call me at [phone]. Thank you for the referral of thispatient. Sincerely, Veronica Staton, OSCAR Balance/Gait/Functional tests Balance/Special Test Scores Functional Gait Assessment Score: 12 % Disability: 60.0000 CATSIB Score (Max score 120 seconds): 50 Dizziness Score: 32 Improvement % Improvement: 80 <Electronically signed by Veronica Staton MPT> 03/17/23 1041 CC: Dr. Heidi Rodriguez, DO ~ Signed [facility] Work Phone: 1(150) 620-490501-19-2024 History of Present illness Narrative* Tiffany Baird MD, PhD - 02/24/2023 2:30 PM EST Images from the original note were not included. DIVISION OF OTOLOGY, NEUROTOLOGY AND CRANIAL BASE SURGERY NEW PATIENT CONSULTATION Date: 02/24/2023 Patient: GORGE VOGEL Attending Physician: Tiffany Baird MD PhD CC: Chief Complaint Patient [...] did GKS (12.5 Gy in 05/2020). Met withDr. Stockton in 07/2022. The past medical history, [...] tab 7hrs prior to MRI , then take1 tab one hour prior to MRI 3 [...] Same Procedure: Bilateral Otologic Binocular Microscopy Surgeon: Mihir Anesthesia: None Indications and Consent: The patient [...] ear, and findings are documented in the physicalexam portion of this note. EBL: None Complications: [...] as his appt with neurosurgery in July Tiffany Baird MD PhD Gas Dispenser Otology, Neurotology and Cranial Base Surgery Department of Otolaryngology [facility] History of Present illness Narrative* Nader Lazaro, AuD - 02/24/2023 2:00 PM EST Images from the original note were not included. Audiometric Evaluation Hx: S/P gamma knife treatments for left vestibular schwannoma; significant left and minimal right hearing loss; occasional vertigo (slow spin); bilateral tinnitus. [employer] user. Dx: Left: Slight [...] IHIS Procedures and Media tabs. Noah Sow Application Spec Department of Otolaryngology-Head and Neck Surgery [address] [place] [address], [address] [place] [address] [facility] summary Author Rip Gambino [facility] August 18, 2022 8:45am Note Date/Time August 18, 2022 8:44 am [facility] Medical Records Department [address] [place] [address] Instructions for Home/Discharge Instructions 08/18/22 0844 MR#: [id number] Acct: [id number] Name: GORGE VOGEL Rep #:[id number] : 1965 57 From: Rip carpenter MD PCP: Dr. Heidi Rodriguez, DO Status:REG SDC Discharge Instructions Procedure Hernia Diet Discharge Diet: Light diet - advance as tolerated Activity Discharge Activity: May Not Drive (for 2-3 days or while taking narcotic pain meds.) and May Shower (with the bandage in place 1-2 days after surgery.) Lifting Restrictions: 20 pounds for 2 weeks. Additional Activity Instructions:: Climbing stairs is fine, walking is encouraged. Sitting in bed may be uncomfortable. Sitting up using your lateral muscles (sitting up sideways) is usually more comfortable. Do not drive, work heavy equipment of sign legal documents for 24 hours. Pain medications may cause nausea, you should typically eat light foods as you take your pain medications. Pain medications may also cause constipation. If you have difficulty with this, discuss with your doctor. Dressing / Incision Call your doctor if your incision/area has: Continuous Slow Oozing, Sudden Increased Bleeding, Increased Pain/ Swelling, Increased Redness and Foul Smelling Discharge Call your doctor if you observe: Fever of 101 or Higher Suture Line Care: Avoid Pulling/Pushing and Avoid Pinching/Bending Remove Dressing in: 2 days (Remove clear bandages in 2 days, remove Steri- Stripsin 7 to 10 days.) Follow Up Care Please Follow Up With: Rip Gambino MD When: Please call to schedule 2 week follow up appointment. [phone] Test Results: Test results from this visit will be discussed in further detail at your follow- up appointment, if applicable. Discharge Plan Admission Attending Provider: Rip Gambino Primary Care Provider: Heidi Rodriguez Discharge Orders/Prescriptions Prescriptions: New oxycodone-acetaminophen [Percocet] 5-325 mg tablet 1 tab PO Q4H PRN (Reason: pain) 5 Days Qty: 15 0RF No Action albuterol sulfate [ProAir HFA] 90 mcg/actuation HFA aerosol inhaler 1 puff INHALATION Q6H PRN (Reason: shortness of breath) Qty: 6.7 0RF lisinopril 10 mg tablet 10 mg PO DAILY Patient Comments: TAKE 1 TABLET BY MOUTHnONCE DAILY Referrals / Follow Up: Heidi Rodriguez DO [Primary Care Provider] - Disposition Disposition (needs filled in before D/C Order can be placed): Home, Self Care 08/18/22 0845<Electronically signed by Rip Gambino MD>Rip Gambino MD CC: Dr. Heidi Rodriguez DO ~ Signed [facility] Work Phone: 1(569) 732-106507-13-2023 Procedure [facility] 08-18-2022 History and physical note Author Rip Gambino [facility] August 18, 2022 6:14am Note Date/Time August 18, 2022 6:14 am [facility] Medical Records Department [address] [place] [address] History & Physical Exam 08/18/22612 MR#: [id number] Acct: [id number] Name: GORGE VOGEL Rep #:[id number] : 1965 57 From: Rip carpenter MD PCP: Dr. Heidi Rodriguez, DO Status:REG [facility] Location: [place] [address] History and Physical Date of Admission: 08/18/22 Intake Vital Signs 07/14/2311:22 07/19/2308:28 Height 6 ft 4 in 6 ft 4 in Weight: 281 lb 278 lb 2 oz BMI 34.2 33.8 BP 181/103 H 135/82 H Blood Pressure Location Rt brachial Position Sitting Respiration 16 18 Pulse 71 73 Pulse Source Monitor Temp 98.4 F 97.8 F Temp Source Temporal Temporal Pulse Oximetry (%) 96 98 Oxygen Delivery Method room air Intake Visit Reasons: SELF REFERRED POSSIBLE HERNIA Chief Complaint: hernia Allergies Gadolinium-MRI Contrast Medium Allergy (Verified 07/13/22 12:22) HivesPenicillins Allergy (Verified 07/13/22 12:22) Unknown Medications albuterol sulfate 90 mcg/actuation aerosol inhaler (ProAir HFA) 1 puff inhalation Q6H PRN shortness of breath #6.7 grams 12/25/18 [Rx Confirmed 12/25/18] albuterol sulfate 90 mcg/actuation aerosol inhaler (Proventil HFA) 1 puff inhalation Q6H 12/25/18 [History Confirmed 12/25/18] PFSH Medical History Acoustic neuroma Asthma Difficulty balancing History of hemorrhoids Knee pain NECK AND BACK PAIN Severe headache Surgical History History of left knee surgery Social History Smoking Status: Never smoker alcohol intake: current alcohol intake frequency: a few times a week HPI HPI HPI: Patient is a 57-year-old male here for umbilical bulging. He says this has beenpresent for at least 2 months. He says about a month and a half ago started bothering him more. He says it bothers him and he is able to push it back in which does make it feel better. He denies any nausea or vomiting or fevers or chills. He has never had an incision in this area. ROS General General: Yes weight change and fatigue; No appetite, colon cancer, breast cancer or weakness HEENT HEENT: No difficulty swallowing, eye injury, eye surgery, swollen glands or hoarseness Endo Endocrine: No thyroid disease, diabetes mellitus, thyroid cancer, Hair loss, heat intolerance or cold intolerance Skin Skin: No rash or changing moles Breast Breast: No left breast lump, right breast lump, nipple discharge, breast pain, abnormal mammogram, abnormal US or breast enlargement Musc Musculoskeletal: Yes back problems; No arthritis, rheumatoid arthritis, gout or joint pain Cardio Cardiovascular: Yes high blood pressure; No murmur, pacemaker, heart disease, atrial fibrillation, heart attack, heart stent, palpitations, shortness of breat with exertion or chest pain Psych Psychiatric: No depression, anxiety or hearing voices Resp Respiratory: No shortness of breath, Yes sleep apnea, No cough, No COPD, Yes asthma, No emphysema and No wheezing Gastro Gastrointestinal: Yes abdominal pain, No nausea or vomiting, No diarrhea, Yes constipation, Yes blood in stool, Yes acid reflux, Yes hemorrhoids, Yes ulcers, No gallbladder problem and No black,tarry stools Gomez Hematologic: No blood thinners, No blood disorders, No bleeding, No anemia and No blood clots Neuro Neurologic: No system reviewed and no additional complaints, except as documented, No as per HPI, No abnormal gait, No abnormal hearing, No abnormal movements, No abnormal speech, No behavioral changes, No burning sensations, No confusion, No convulsions, No disequilibrium, No dizziness, No localized weakness, No frequent falls, No headache(s), No lack of coordination, No loss ofvision, No memory loss, No numbness, No other visual disturbances, No radicular pain, No restless legs, No sensory deficit, No syncope, No tingling, No tremor(s), No weakness and No other Exam Const General: cooperative Orientation: alert and oriented x3 HENPR Head: normal to inspection Neck Neck: normal visual inspection and full ROM Chest Chest palpation & inspection: normal inspection of the chest Resp Effort & Inspection: normal respiratory effort Auscultation: clear to auscultation bilaterally Cardio Rate: regular rate Rhythm: regular rhythm GI Inspection: non-distended Palpation: soft, hernia umbilical and nontender Skin General: no rashes or lesions noted Neuro General: patient alert and patient oriented x3 Extrem General: full ROM Psych Appearance: grossly normal Mental Status: mental status grossly normal Assessment and Plan Assessment and Plan (1) Hernia, umbilical: Status: Acute Qualifiers: Obstruction and gangrene presence: without obstruction or gangrene Qualified Code(s): K42.9 - Umbilical hernia without obstruction or gangrene Plan: Patient is here with a small umbilical hernia. I discussed umbilical hernia repair with possible mesh. I explained that if the defect was over [address] to [address] preperitoneal mesh. I discussed the procedure in detail as well as the risks of bleeding, infection, injury to underlying organs, recurrence of hernia. Patient understands the risks and is willing to proceed with umbilical hernia repair. Rip Gambino MD Pager: [facility] [address] [place] [address], [address] [place] [address] Office: I have examined the patient and the H&P has been reviewed. There are no clinicalchanges since date of exam. 08/18/22613 <Electronically signed by Rip Gambino MD> Cosigner Signature (if applicable): CC: Dr. Rip Gambino MD; Dr. Heidi Rodriguez, DO~ Signed [facility] Work Phone: 1(311) 860-948606-02-2023 History of Present illness Narrative* Lamberto Stockton MD - 07/08/2022 2:00 PM EDT Images from the original note were not included. [facility] Violetta Travis [facility] for Dr. Solis De La Torre MD, FAANS Board Certified in Neurological Pipe Line WalkerGas Dispenser, Department of Neurological Surgery Associate Fur Plucker, Skull Base Surgery Clinical Fellowship Co-Director (Neurosurgery), [employer] [facility] and Research Fellowship [facility] [place] [address] Clinic: Admin: ESTABLISHED PATIENT VISIT NOTES I. SUMMARY OF CARE A. DIAGNOSIS: 1. Left- sided vestibular schwannoma B. PROCEDURES RELATED TO CARE: There have been no procedures or surgeries performed by The Sk[facility] Surgery Service at this time. C. ORIGINAL CLINIC PRESENTATION: (04/02/2020) Gorge Vogel is a 54 y.o. male that presents to [facility] for consultation [...] quality MRI for being from outside our system,it shows a small increase in the size [...] therapy Solis De La Torre MD, FAANS Gas Dispenser, Neurological Surgery [facility] [place] II. MEDICAL/ SURGICAL HISTORY Past Medical History: [...] tab 7hrs prior to MRI , then take1 tab one hour prior to MRI 3 tablet [address] omepraz[address] capsule Take 1 capsule by mouth daily for 15 days. 15 capsule 0 No current facility-administered medications for this visit. IV. IMAGING A. OUTSIDE MRI BRAIN WITH AND WITHOUT CONTRAST ([facility]) 06/14/2021 NOTE: The patient's imaging study was done at an outside facility and was reviewed in clinic. V. LABS (LAST ORDERED BY THE [facility]) There have been no recent labs or [...] No ecchymosis. No rash. M/S: UE Strength: BASE FILLER BICEPS TRICEPS [employer] W.EX LEFT 5 [...] 55 y.o. male that presents to [facility] Skull Base [facility] for follow up of left VS s/p Gamma Knife (06/03/20). He is doing well overall. Continues to endure frequent headaches. Denies hearing changes. Denies new neurological symptoms. [facility] shows [facility] of left vestibular mass presumed schwannoma. Imaging reviewed w/ patient. From neurosurgery standpoint, there is no indication for surgery at this time. Will continue surveillance with interval imaging. Will refer to Neurology for evaluation and management of headaches. Patient advised to call with new or worsening neurological symptoms. Patient is in agreement with the pl an. Plan: 1) OTOLOGY - YIN MIHIR 2) AUDIOGRAM 3) MRI IAC Lamberto Stockton MD Department of Neurosurgery Skull Base, Minimally Invasive, and Neurosurgical Oncology [facility] Instructions* Patient Instructions* Lamberto Stockton MD - 07/08/2022 2:00 PM EDT [facility] SKULL BASE & MINIMALLY INVASIVE, NEUROSURGICAL ONCOLOGY CLINIC Dr. Lamberto Stockton MD Gas Dispenser, Department of Neurosurgery [address] [place] [address] Neurosurgical Office Information Regular business hours are Monday through Monday 8:30 a.m. to 4:30 p.m. Please call [phone] for information related to clinic appointments, scheduled tests, or for general office related questions or concerns. Messages for the physicians, nurses and other team members can be taken at this phone number and will be routed as appropriate. Emergency assistance is available after hours by calling the office at [phone] and the answering service will reach your doctor or the physician penetration tester. Please allow at least 48 hours for [...] or transportation. You may contact Arabella at [phone] or Radha at [phone]. Please let the staff know if you are in need of these services and we would be happy to contact a high school social science teacher for you. Financial Services - Rufus Benites and Lorena Kaplan are our financial counselors who can assist you at your appointments or call them at [phone]. Pastoral Care - Pastry Cook Melinda Hyatt is able to assist your with your spiritual needs. If you wishto see the theater usher please let your oncology team know to arrange this. Integrative Medicine Therapy -these are complementary therapies used in addition to your cancer treatment to assist with anxiety, pain, nausea, poor sleep, and exhaustion. If you wish this additional therapy please contact [email or web address] to set up an appointment. Youmay also request this in the same way if you are inpatient or ask your nurse. THERE IS NO COST FOR THIS SERVICE. The [facility] - It is conveniently located on the [facility] campus on the conference level (CL) of the [facility] and [facility],next door to [facility] and near [facility]. To learn more about The [facility], you can visit it on weekdays from 8 a.m.- 9 p.m. and on weekends from 9 a.m.-6 p.m. [facility]- is a communication tool used through the [...] nurse will call you. THERE IS AN [employer] BRADEN FOR SMART PHONES. USE YOUR BRADEN STORE AND SEARCH [employer], download theapp and follow the prompts to set up the [facility] format. Through this BRADEN, you will be able to look at results, send messages and much more. Additionally, you are able tosend pictures to providers. documented in this encounter[facility]05-12-[facility]22 Instructions* Patient Instructions* Violetta Travis, BICYCLE ASSEMBLER-REC THERAPIST - 06/17/2021 3:08 PM EDT [facility] SK[facility] PIT[facility]ARY CENTER [facility] Dr. Solis De La Torre MD - Gas Dispenser of Neurosurgery Co- Director Minimally Invasive Surgery Fellowship Violetta Travis - Nurse Practitioner Brain [place] - Primary Clinic Nurse [address] [address] Phone: Fax: Neurosurgical Office Information Regular business hours are Monday through Monday 8:30 a.m. to 4:30 p.m. Please call [phone] for information related to clinic appointments, scheduled tests, or for general office related questions or concerns. Messages for the physicians, nurses and other team members can be taken at this phone number and will be routed as appropriate. Emergency assistance is available after hours by calling the office at [phone] and the answering service will reach your doctor or the physician penetration tester. Please allow at least 48 hours for [...] office please mail to : NEUROSURGICAL DEPARTMENT [id number] On License Of [facility] [address] [address] documented in this encounter[facility] History of Present illness Narrative* ROJELIO Prado - 06/17/2021 3:00 PM EDT [facility] Violetta Travis CNP for Dr. Solis De La Torre MD, FAANS Board Certified in Neurological Pipe Line WalkerGas Dispenser, Department of Neurological Surgery Associate Fur Plucker, Skull Base Surgery Clinical Fellowship Co-Director (Neurosurgery), ALT-VISION Surgical Laboratory and Research Fellowship [facility] [id number] [place], [address] [place] [address] Clinic: Admin: ESTABLISHED PATIENT VISIT NOTES I. SUMMARY OF CARE A. DIAGNOSIS: 1. Left- sided vestibular schwannoma B. PROCEDURES RELATED TO CARE: There have been no procedures or surgeries performed by The Skull Base Surgery Service at this time. C. ORIGINAL CLINIC PRESENTATION: (04/02/2020) Gorge Vogel is a 54 y.o. male that presents to [facility] Pit[facility] for consultation [...] quality MRI for being from outside our system,it shows a small increase in the size [...] therapy Solis De La Torre MD, FAANS Gas Dispenser, Neurological Surgery [facility] II. MEDICAL/ SURGICAL HISTORY Past Medical History: [...] tab 7hrs prior to MRI , then take1 tab one hour prior to MRI 3 tablet 0 No current facility-administered medications for this visit. IV. IMAGING A. OUTSIDE MRI BRAIN WITH AND WITHOUT CONTRAST ([facility]) 06/14/2021 NOTE: The patient's imaging study was done at an outside facility and was reviewed in clinic. V. LABS (LAST ORDERED BY THE [facility]) There have been no recent labs or [...] No ecchymosis. No rash. M/S: UE Strength: BASE FILLER BICEPS TRICEPS DELTS INTRINSICS W.EX LEFT 5 [...] 55 y.o. male that presents to [facility] for follow up of left VS s/p Gamma Knife (06/03/20). He is doing well overall. Continues to endure frequent headaches. Denies hearing changes. Denies new neurological symptoms. [facility] shows [facility] of left vestibular mass presumed schwannoma. Imaging reviewed w/ patient. From neurosurgery standpoint, there is no indication for surgery at this time. Will continue surveillance with interval imaging. Will refer to Neurology for evaluation and management of headaches. Patient advised to call with new or worsening neurological symptoms. Patient is in agreement with the pl an. Plan: RTC in 1 year with BRADEN+ MRI Refer to Neurology This case was discussed with, and the plan of care was developed mutually with Dr. De La Torre. documented in [facility]* Diagnosis Left acoustic neuroma- Primary Benign neoplasm of cranial nerves Lesion of brain Other conditions of brain [facility] information available [facility] Work Phone: Evaluation note* Diagnosis Schwannoma- Primary Other benign neoplasm of connective and other soft tissue of unspecified site [facility] Diagnosis Left acoustic neuroma- Primary Benign neoplasm of cranial nerves [facility] Diagnosis Sensorineural hearing loss, bilateral- Primary Impaired auditory discrimination, left Left acoustic neuroma Benign neoplasm of cranial nerves Vertigo Dizziness and giddiness [facility] Diagnosis Left acoustic neuroma- Primary Benign neoplasm of cranial nerves [facility] Diagnosis Left-sided acoustic neuroma- Primary [facility] Diagnosis Schwannoma- Primary Other benign neoplasm of connective and other soft tissue of unspecified site documented in this encounter [facility] for [facility] (narrative)* Consultation (Routine) - New Request Specialty Diagnoses / Procedures Referred By Elton mckeon Referred To Contact Diagnoses Left acoustic neuroma Violetta Travis APRN-CNP [address] [place] [address] Referral ID Status Reason Start Date Expiration Date V isits Requested Visits Authorized [id number] New Request 06/17/2021 2022 1 1 * MRI/CAT Scan (Routine) - New Request Specialty Diagnoses / Procedures Referred By Elton t Referred To Contact Diagnoses Lesion of brain Procedures MRI BRAIN WITH AND WITHOUT CONTRAST MT MRI BRAIN MARKO Violetta Travis APRN-CNP [address] [place] [address] Referral ID Status Reason Start Date Expiration Date V isits Requested Visits Authorized [id number] New Request 06/17/2021 2022 1 1 [facility] Summary Purpose Family History No Family History Records Found Father Name Dates Details Family history of Parkinson disease, symptomatic(332.0, G20) Status:Active Advance Directives No Advanced Directives Records Found Advance Directive Response Recorded Date/ Time Living Will Yes November 02, 2018 1:59pm Power of Accreditation Manager Yes October 1:59pm Advance Directive Response Recorded Date/ Time Living Will Yes November 02, 2018 12:59pm Power of Accreditation Manager Yes October 12:59pm Advance Directive Response Recorded Date/ Time Living Will No July 13, 2022 1 2:51pm Power of Accreditation Manager No July 13, 2022 12:51pm Advance Directive Response Recorded Date/ Time Name of Medical Power of Accreditation Manager August 08, 2022 1:28pm Living Will Yes August 08, 2022 1 :28pm Power of Accreditation Manager Yes August 08, 2022 1:28pm Advance Directive Response Recorded Date/ Time Living Will Yes August 08, 2022 1 2:28pm Power of Accreditation Manager Yes August 08, 2022 12:28pm Advance Directive Response Recorded Date/ Time Living Will Yes August 08, 2022 1 :28pm Power of Accreditation Manager Yes August 08, 2022 1:28pm Documents on File Type Date Recorded Patient Senior Sales Assistant Expl anation HealthCare Power of Accreditation Manager 07/13/2023 12:24 PM Documents on File Type Date Recorded Patient Senior Sales Assistant Expl anation HealthCare Power of Accreditation Manager 07/13/2023 12:24 PM Chief Complaint and Reason for Visit Chief Complaint LESION ON BRAIN Chief Complaint ELBOW TENDONITIS. RX HERE Blood Flow Screening - Warehouse Shipping Clerk Chief Complaint LEFT ACOUSTIC NEUROM A ABDOMINAL PAIN Chief Complaint LEFT ACOUSTIC NEUROM A ABDOMINAL PAIN SELF REFERRED POSSIBLE HERNIA UMBILICAL HERNIA REPAIR UMBILICAL HERNIA REPAIR Chief Complaint LEFT ACOUSTIC NEUROM A ABDOMINAL PAIN SELF REFERRED POSSIBLE HERNIA PREOP UMBILICAL HERNIA REPAIR UMBILICAL HERNIA REPAIR 2WK F/U HERNIA SURGERY 08/18 TC Chief Complaint CHEST CONGESTION/COU GH VERTIGO, DIZZINESS/GIDDINESS. RX HERE Chief Complaint VERTIGO, DIZZINESS/G IDDINESS. RX HERE Reason for Referral Specialty Diagnoses / Procedures Referred By Contac t Referred To Contact Diagnoses Schwannoma Procedures MRI INTERNAL AUDITORY CANAL WITH AND WITHOUT CONTRAST MT MRI BRAIN COMBO Lamberto Stockton MD [address] [place] [phone] Referral ID Status Reason Start Date Expiration Date V isits Requested Visits Authorized [id number] New Request 07/08/2022 08/02/2023 1 1 Specialty Diagnoses / Procedures Referred By Contac t Referred To Contact Otolaryngology Diagnoses Schwannoma Lamberto Stockton MD [address] [place] [phone] Tiffany Baird MD, PhD [address] [facility] [address] [place] [address] Referral ID Status Reason Start Date Expiration Date V isits Requested Visits Authorized [id number] New Request 07/08/2022 08/02/2023 1 1 Specialty Diagnoses / Procedures Referred By Contac t Referred To Contact Audiology Diagnoses Schwannoma Lamberto Stockton MD [address] [place] [phone] Referral ID Status Reason Start Date Expiration Date V isits Requested Visits Authorized [id number] New Request 07/08/2022 08/02/2023 1 1 Specialty Diagnoses / Procedures Referred By Contac t Referred To Contact Diagnoses Left-sided acoustic neuroma Procedures MRI INTERNAL AUDITORY CANAL WITH AND WITHOUT CONTRAST CHG MRI BRAIN BRAIN STEM W/O W/CONTRAST MATERIAL Lynn Cazares PA-C [address] [place] [address] Referral ID Status Reason Start Date Expiration Date V isits Requested Visits Authorized [id number] New Request 07/13/2023 08/06/2024 1 1 Additional Source Comments (unrecognized sect ion and content) No Status Records FoundNo Status Records FoundNo Status Records Found INFORMATION SOURCE (unrecogn ized section and content) DATE CREATED AUTHOR 03/12/2020 [place] DATE CREATED AUTHOR AUTHOR'S ORGANIZ ATION 08/16/2024 [facility] DATE CREATED AUTHOR AUTHOR'S ORGANIZ ATION 12/06/2024 [facility] Reason for Visit (unrecogniz ed section and content) Reason Comments Follow-up Reason Comments Follow-up Reason Comments New Patient Cc: new pt here to e justo chacon, hx of acoustic neuroma Reason Comments Hearing Loss Acoustic Neuroma Specialty Diagnoses / Procedures Referred By Contac t Referred To Contact Application Spec / Audiology Procedures AUDIO INTERNAL Self, Self Nader Lazaro, AuD [address] [facility] [address] [place] [address] Referral ID Status Reason Start Date Expiration Date V isits Requested Visits Authorized [id number] New Request 02/24/2023 03/20/2024 1 1 Reason Comments Follow-up Hearing Loss Hearing loss in left ear Reason Comments Follow-up The patient reports he has lost more hearing in the left ear. Reports excessive tearing then dry sharp pain in the left eeye. Headaches improved as well as balance. Patient took balance therapy at his local hospital. Reason Comments Follow-up Care Teams (unrecognized sec tion and content) Skinner Pelts Relationship Specialty Start Date End Date Heidi Rodriguez DO [address] [facility] [place] [address] [place] [address] PCP - General Family Medicine 04/02/20 Herminio Redd DO [address] [facility] [address] [place] [address] Radiation Oncologist Radiation Oncology 03/24/20 Team Status: Active Member Role Status Dates Dr. Heidi Rodriguez DO Family Provider Active Dr. Heidi Rodriguez DO Primary Care Provider Active Team Status: Inactive Member Role Status Dates Dr. Heidi Rodriguez DO Primary Care Prov ider, Attending Provider, Referring Provider Active Team Status: Active Member Role Status Dates Dr. Heidi Rodriguez DO Primary Care Provider Active Self Referred Attending Provider, Referring Provider A ctive Skinner Pelts Relationship Specialty Start Date End Date Heidi Rodriguez DO [address] [facility] [place] [address] [place] [address] PCP - General Family Medicine 04/02/20 Herminio Redd DO [address] [facility] [address] [place] [address] Radiation Oncologist Radiation Oncology 03/24/20 Team Status: Active Member Role Status Dates Dr. Heidi Rodriguez DO Primary Care Provider Active DEBORA BAILEY Attending Provider, Referring Provider Ac tive Team Status: Inactive Member Role Status Dates Dr. Heidi Rodriguez DO Primary Care Provider Active Dr. Atul Hamilton DO Emergency Provider Active Team Status: Inactive Member Role Status Dates Dr. Heidi Rodriguez DO Primary Care Provider, Referrin g Provider Active Dr. Rip Gambino MD Attending Provider Active Team Status: Active Member Role Status Dates Dr. Heidi Rodriguez DO Primary Care Provider Active Dr. Rip Gambino MD Attending Pr ovider, Referring Provider, Other Provider Active Team Status: Inactive Member Role Status Dates Dr. Heidi Rodriguez DO Primary Care Provider Active Dr. Atul Hamilton DO Attending Provider, Emergency Pro vider Active Team Status: Inactive Member Role Status Dates Dr. Heidi Rodriguez DO Primary Care Provider Active Dr. Rip Gambino MD Attending Provider, Referr ing Provider Active Team Status: Inactive Member Role Status Dates Dr. Heidi Rodriguez DO Primary Care Provider Active DEBORA BAILEY Attending Provider, Referring Provider Ac tive Team Status: Active Member Role Status Dates Dr. Heidi Rodriguez DO Primary Care Provider Active Dr. Shivani Marinelli MD Attending Provider Activ e Dr. Skyler Bashir MD Referring Provider Active Team Status: Inactive Member Role Status Dates Dr. Heidi Rodriguez DO Primary Care Provider Active Health Risk Assessment Attending Provider, Referring P live Active Skinner Pelts Relationship Specialty Start Date End Date Heidi Rodriguez DO [address] [place] [address] [place] [phone] PCP - General Family Medicine 04/02/20 Herminio Redd DO [address] [facility] [address] [place] [address] Radiation Oncologist Radiation Oncology 03/24/20 Skinner Pelts Relationship Specialty Start Date End Date Heidi Rodriguez DO [address] [place] [address] [place] [address] PCP - General Family Medicine 04/02/20 Herminio Redd DO [address] [facility] [address] [place] [address] Radiation Oncologist Radiation Oncology 03/24/20 Team Status: Inactive Member Role Status Dates Dr. Heidi Rodriguez DO Primary Care Provider, Referrin g Provider Active Laurie SCHUSTER, PA Attending Provider Active Skinner Pelts Relationship Specialty Start Date End Date Heidi Rodriguez DO [address] [place] [address] [place] [phone] PCP - General Family Medicine 04/02/20 Herminio Redd DO [address] [facility] [address] [place] [address] Radiation Oncologist Radiation Oncology 03/24/20 Skinner Pelts Relationship Specialty Start Date End Date Heidi Rodriguez DO [address] [place] [address] [place] [phone] PCP - General Family Medicine 04/02/20 Amrik Redde DO Danielito [address] [facility] [address] [place] [address] Radiation Oncologist Radiation Oncology 03/24/20 Skinner Pelts Relationship Specialty Start Date End Date Heidi Rodriguez DO [address] [facility] [address] [place] [address] PCP - General Family Medicine 04/02/20 IvaniaHerminio DO Danielito [address] [facility] [address] [place] [address] Radiation Oncologist Radiation Oncology 03/24/20 Goals (unrecognized section and content) Goals may be documented in a n alternate sectionGoals may be documented in an alternate sectionGoals may be documented in an alternate sectionGoals may be documented in an alternate sectionGoals may be documented in an alternate section FOR RECORDS PERTAINING TO PATIENTS WHO ARE [...] BE BASED ON THE PRIMARY CLINICAL RECORDS. [facility] FRESS [facility]. provides no warranty or guarantee of the accuracy or completeness of information in this document.
[2024-12-16 10:01] LABS: PSA,Total - Annual Screen 1.92 ng/mL (0.02-4.00)
== END | disposition home or self-care (01) ==
LOC: RAD 09:17
PROVIDERS: PCP Family Medicine; Referring Provider Family Medicine; Visit Provider Family Medicine
DX: M54.2 Cervicalgia (principal); Z12.5 Encounter for screening for malignant neoplasm of prostate
CPT/HCPCS: 36415; 72052; 84153; G0103